=== PATIENT | male | born 1930 | race African-American/Black ===

== ENCOUNTER 2018-07-31 13:47 | Inpatient (IN) | payer MEDICARE ==
[~2018-07-31] VITALS: Ht 182.9 cm; Wt 108.9 kg
[2018-07-31] MEDS ORDERED: MORPHINE SULFATE 2 MG/ML VIAL. IV/SQ PRN (14:30)
--- NOTE | 2018-07-31 14:58 | EKG ---
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
[2018-07-31 15:19] LABS: BASO # 0.1 x10^3/uL (0.0-0.2); BASO % 1 % (0-3); BILIRUBIN,URINE NEGATIVE (NEG); CLARITY,URINE CLEAR; COLOR,URINE YELLOW; EOS # 0.2 x10^3/uL (0.0-0.7); EOS % 5 % (0-3); HEMATOCRIT 37.7 % (39.0-53.0); HEMOGLOBIN 12.9 g/dL (13.0-17.5); LYMPH # 1.2 x10^3/uL (1.0-4.8); LYMPH % 27 % (24-48); MEAN CORPUSCULAR HEMOGLOBIN 33 pg (25-35); MEAN CORPUSCULAR HGB CONC 34 g/dL (31-37); MEAN CORPUSCULAR VOLUME 97 fL (79-100); MONO # 0.4 x10^3/uL (0.0-1.1); MONO % 8 % (0-9); NEUT # 2.6 x10^3uL (1.8-7.7); NEUT % 59 % (31-73); NITRITE,URINE NEGATIVE (NEG); PH,URINE 6.5; PLATELET COUNT 218 x10^3/uL (140-400); PROTEIN,URINE NEGATIVE (NEG-TRACE); RED CELL DISTRIBUTION WIDTH 13.9 % (11.5-14.5); WHITE BLOOD COUNT 4.5 x10^3/uL (4.0-11.0)
[2018-07-31 15:26] LABS: BARBITURATES NEG (NEG); BENZODIAZEPINES NEG (NEG); CANNABINOIDS NEG (NEG); COCAINE NEG (NEG); METHADONE NEG (NEG); OPIATES NEG (NEG); PHENCYCLIDINE NEG (NEG)
[2018-07-31 15:29] LABS: AMPHETAMINE/METHAMPHETAMINE NEG (NEG); PROTHROMBIN TIME PATIENT 13.9 SEC (11.7-14.0)
[2018-07-31 15:44] LABS: BACTERIA,URINE FEW /HPF (0-FEW); HYALINE CASTS, URINE FEW /HPF; RBC,URINE OCC /HPF (0-2); SQUAMOUS EPITHELIAL CELL,UR FEW /LPF
[2018-07-31 16:12] LABS: ANION GAP 15 (6-14); BLOOD UREA NITROGEN 18 mg/dL (8-26); BUN/CREATININE RATIO 11 (6-20); CALCIUM 9.6 mg/dL (8.5-10.1); CARBON DIOXIDE 23 mmol/L (21-32); CHLORIDE 90 mmol/L (98-107); CREATININE 1.7 mg/dL (0.7-1.3); GFR 46.5; GLUCOSE 111 mg/dL (70-99); POTASSIUM 3.8 mmol/L (3.5-5.1); SODIUM 128 mmol/L (136-145)
[2018-07-31] MEDS ORDERED: CONTRAST GIVEN. MC PRN (16:30)
[2018-07-31] MEDS ORDERED: IOHEXOL 300 MG/ML 100ML VIAL. IV ONE (16:30)
[2018-07-31 16:38] LABS: ALBUMIN 4.1 g/dL (3.4-5.0); MAGNESIUM 2.2 mg/dL (1.8-2.4)
[2018-07-31 16:42] LABS: ALBUMIN/GLOBULIN RATIO 1.1 (1.0-1.7); ALK PHOS 63 U/L (46-116); ALT (SGPT) 26 U/L (16-63); AST (SGOT) 84 U/L (15-37); LIPASE < 10 U/L (73-393); TOTAL BILIRUBIN 0.7 mg/dL (0.2-1.0); TOTAL PROTEIN 7.7 g/dL (6.4-8.2)
[2018-07-31] MEDS ORDERED: IV NORMAL SALINE 1000ML BAG 1,000 ML IV ONE ×4 (17:00→18:00)
--- NOTE | 2018-07-31 17:11 | RAD ---
CT scan abdomen and pelvis with contrast 07/31/2018 CLINICAL HISTORY: Abdominal pain and distention. TECHNIQUE: After the intravenous administration of 60 cc of Omnipaque 300 only, contiguous, 5 mm axial sections were obtained through abdomen and pelvis. One or more of the following individualized dose reduction techniques were utilized for this study: 1. Automated exposure control. 2. Adjustment of the mA and/or kV according to patient size. 3. Use of iterative reconstruction technique. FINDINGS: No previous imaging studies are available for comparison. Images through the lung bases demonstrate minimal dependent subsegmental atelectasis involving both lower lobes. The liver, spleen, pancreas, and adrenal glands are within normal limits. Rounded low-attenuation lesions are seen involving both kidneys. These measure 5 mm to 4 cm in size. They likely represent cysts. Atherosclerotic calcification of the abdominal aorta and its branches is noted. The abdominal aorta is ectatic but tapers normally. Multiple calcified gallstones are seen within the dependent portions of the gallbladder. The gallbladder is contracted. Air and stool distention of the colon is seen particularly involving the sigmoid colon without definite evidence of bowel obstruction. The rectum has a diffusely thickened wall. It is mild to moderately distended with stool. The rectosigmoid junction is normal in caliber. The sigmoid colon proximal to this is markedly distended and filled with stool and air. No mass lesion is seen; however, an underlying stricture in this region is not excluded. Clinical correlation is recommended. No free fluid or free air is seen within the abdomen. Images through the pelvis demonstrate the urinary bladder distended with urine. The prostate gland is enlarged likely related to BPH. No free fluid is seen. Very mild S-shaped curvature of the thoracolumbar spine is seen. Degenerative changes are seen involving the lower thoracic and throughout the lumbar disc spaces along with both SI joints. Moderate to severe degenerative changes are seen involving both hips, right greater than left. IMPRESSION: Marked air and stool distention of the sigmoid colon is seen without definite evidence of bowel obstruction as discussed above. Electronically signed by: Demetris Tay MD (07/31/2018 5:08 PM) [facility]
--- NOTE | 2018-07-31 17:29 | PHYS DOC ---
Past Medical History Past Medical History: Hypertension, Other Additional Past Medical Histor: GOUT,BOWEL OBSTRUCTION (ROSINA DIEHL APRN) Past Surgical History: Angioplasty, Other Additional Past Surgical Histo: BOWEL SURG (ROSINA DIEHL APRN) Alcohol Use: Heavy Additional Information: DRINKS 1/2 [place] WITH BEER DAILY, LAST DRINK 2 DAYS AGO. Drug Use: None (ROSINA DIEHL APRN) Adult General Chief Complaint Chief Complaint: ABDOMINAL PAIN HPI HPI Patient is a 88 year old male with history of hypertension, very poor historian who presents to the ED today complaining of generalized pressure like 5 out of 10 abdominal pain that has been going on for 2- 3 months. Patient is also complaining of nausea. Denies any vomiting. He states his stools are sometimes loose with the last BM movement two or three days ago. He states he has tried gas X and small amount of gas comes out. Patient is also complaining of urinary incontinence for 2-3 months. Denies any trauma. Denies any back pain. Denies any fever. PCP-[facility] (ROSINA DIEHL APRN) Review of Systems Review of Systems Constitutional: Denies fever or chills [] Eyes: Denies change in visual acuity, redness, or eye pain [] HENT: Denies nasal congestion or sore throat [] Respiratory: Denies cough or shortness of breath [] Cardiovascular: No additional information not addressed in HPI [] GI: Reports abdominal pain and nausea, denies vomiting, bloody stools or diarrhea [] : Denies dysuria or hematuria [] Musculoskeletal: Denies back pain or joint pain [] Integument: Denies rash or skin lesions [] Neurologic: Denies headache, focal weakness or sensory changes [] All other systems were reviewed and found to be within normal limits, except as documented in this note. (ROSINA DIEHL APRN) Current Medications Current Medications Current Medications Medications (Trade) Dose Ordered Sig/Steve Start Time Stop Time Status Last Admin Dose Admin Acetaminophen (Tylenol) 650 mg PRN Q4HRS PRN 07/31/18 18:00 08/01/18 17:59 Info (CONTRAST GIVEN -- Rx MONITORING) 1 each PRN DAILY PRN 07/31/18 16:30 08/02/18 16:29 Iohexol (Omnipaque 300 Mg/ml) 60 ml 1X ONCE 07/31/18 16:30 07/31/18 16:31 DC 07/31/18 16:37 60 ML Morphine Sulfate (Morphine Sulfate) 2 mg PRN Q2HR PRN 07/31/18 18:00 08/01/18 17:59 Ondansetron HCl (Zofran) 4 mg PRN Q8HRS PRN 07/31/18 18:00 08/01/18 17:59 Sodium Chloride 1,000 ml @ 125 mls/hr 1X ONCE 07/31/18 18:00 08/01/18 01:59 (DORENE WESTBROOK MD) Allergies Allergies Allergies Coded Allergies Type Severity Reaction Last Updated Verified No Known Drug Allergies 07/31/18 No (DORENE WESTBROOK MD) Physical Exam Physical Exam Constitutional: Well developed, well nourished, no acute distress, non-toxic appearance. [] HENT: Normocephalic, atraumatic, bilateral external ears normal, oropharynx moist, no oral exudates, nose normal. [] Eyes: PERRLA, EOMI, conjunctiva normal, no discharge. [] Neck: Normal range of motion, no tenderness, supple, no stridor. [] Cardiovascular:Heart rate regular rhythm, no murmur [] Lungs & Thorax: Bilateral breath sounds clear to auscultation [] Abdomen: Distended rounded abdomen. Bowel sounds are present. Bowel sounds norm al, soft, diffuse tenderness throughout the abdomen, no point tenderness to the right upper quadrant or right lower quadrant no masses, no pulsatile masses. [] Skin: Warm, very dry scaly skin, no rashes Back: No tenderness, no CVA tenderness. [] Extremities: No tenderness, no cyanosis, no clubbing, ROM intact, no edema. [] Neurologic: Alert and oriented X 3, normal motor function, normal sensory function, no focal deficits noted. [] Psychologic: Affect normal, judgement normal, mood normal. [] (ROSINA DIEHL APRN) Current Patient Data Vital Signs Vital Signs Date Time Temp Pulse Resp B/P (MAP) Pulse Ox O2 Delivery O2 Flow Rate FiO2 07/31/18 14:04 98.2 71 20 153/70 (97) 96 Room Air 98.2 (DORENE WESTBROOK MD) Lab Values Laboratory Tests Test 07/31/18 15:05 07/31/18 15:50 White Blood Count 4.5 x10^3/uL (4.0-11.0) Red Blood Count 3.90 x10^6/uL (4.30-5.70) L Hemoglobin 12.9 g/dL (13.0-17.5) L Hematocrit 37.7 % (39.0-53.0) L Mean Corpuscular Volume 97 fL (79-100) Mean Corpuscular Hemoglobin 33 pg (25-35) Mean Corpuscular Hemoglobin Concent 34 g/dL (31-37) Red Cell Distribution Width 13.9 % (11.5-14.5) Platelet Count 218 x10^3/uL (140-400) Neutrophils (%) (Auto) 59 % (31-73) Lymphocytes (%) (Auto) 27 % (24-48) Monocytes (%) (Auto) 8 % (0-9) Eosinophils (%) (Auto) 5 % (0-3) H Basophils (%) (Auto) 1 % (0-3) Neutrophils # (Auto) 2.6 x10^3uL (1.8-7.7) Lymphocytes # (Auto) 1.2 x10^3/uL (1.0-4.8) Monocytes # (Auto) 0.4 x10^3/uL (0.0-1.1) Eosinophils # (Auto) 0.2 x10^3/uL (0.0-0.7) Basophils # (Auto) 0.1 x10^3/uL (0.0-0.2) Prothrombin Time 13.9 SEC (11.7-14.0) Prothrombin Time INR 1.1 (0.8-1.1) Urine Collection Type Void Urine Color Yellow Urine Clarity Clear Urine pH 6.5 Urine Specific [place] 1.010 Urine Protein Negative mg/dL (NEG-TRACE) Urine Glucose (UA) Negative mg/dL (NEG) Urine Ketones (Stick) Negative mg/dL (NEG) Urine Blood Negative (NEG) Urine Nitrite Negative (NEG) Urine Bilirubin Negative (NEG) Urine Urobilinogen Dipstick 1.0 mg/dL (0.2 mg/dL) Urine Leukocyte Esterase Negative (NEG) Urine RBC Occ /HPF (0-2) Urine WBC 1-4 /HPF (0-4) Urine Squamous Epithelial Cells Few /LPF Urine Bacteria Few /HPF (0-FEW) Urine Hyaline Casts Few /HPF Urine Mucus Slight /LPF Urine Opiates Screen Neg (NEG) Urine Methadone Screen Neg (NEG) Urine Barbiturates Neg (NEG) Urine Phencyclidine Screen Neg (NEG) Urine Amphetamine/Methamphetamine Neg (NEG) Urine Benzodiazepines Screen Neg (NEG) Urine Cocaine Screen Neg (NEG) Urine Cannabinoids Screen Neg (NEG) Urine Ethyl Alcohol Neg (NEG) Sodium Level 128 mmol/L (136-145) L Potassium Level 3.8 mmol/L (3.5-5.1) Chloride Level 90 mmol/L (98-107) L Carbon Dioxide Level 23 mmol/L (21-32) Anion Gap 15 (6-14) H Blood Urea Nitrogen 18 mg/dL (8-26) Creatinine 1.7 mg/dL (0.7-1.3) H Estimated GFR (Cockcroft-Gault) 46.5 BUN/Creatinine Ratio 11 (6-20) Glucose Level 111 mg/dL (70-99) H Calcium Level 9.6 mg/dL (8.5-10.1) Magnesium Level 2.2 mg/dL (1.8-2.4) Total Bilirubin 0.7 mg/dL (0.2-1.0) Aspartate Amino Transferase (AST) 84 U/L (15-37) H Alanine Aminotransferase (ALT) 26 U/L (16-63) Alkaline Phosphatase 63 U/L (46-116) Creatine Kinase 1717 U/L (39-308) H Creatine Kinase MB (Mass) 17.3 ng/mL (0.0-3.6) H Creatine Kinase MB Relative Index 1.0 % (0-4) Troponin I Quantitative 0.018 ng/mL (0.000-0.055) SS-Kiv-O-Type Natriuretic Peptide 319 pg/mL (0-449) Total Protein 7.7 g/dL (6.4-8.2) Albumin 4.1 g/dL (3.4-5.0) Albumin/Globulin Ratio 1.1 (1.0-1.7) Lipase < 10 U/L (73-393) L Ethyl Alcohol Level < 10 mg/dL (0-10) Laboratory Tests 07/31/18 15:05 Laboratory Tests 07/31/18 15:50 (DORENE WESTBROOK MD) EKG EKG 14:[address] Westbrook sinus rhythm heart rate 72 no STEMI[] (ROSINA DIEHL INTERNATIONAL OPERATIONS MANAGER) Radiology/Procedures Radiology/Procedures []PROCEDURE: CT ABD PELV W/ IV CONTRST ONLY CT scan abdomen and pelvis with contrast 07/31/2018 CLINICAL HISTORY: Abdominal pain and distention. TECHNIQUE: After the intravenous administration of 60 cc of Omnipaque 300 only, contiguous, 5 mm axial sections were obtained through abdomen and pelvis. One or more of the following individualized dose reduction techniques were utilized for this study: 1. Automated exposure control. 2. Adjustment of the mA and/or kV according to patient size. 3. Use of iterative reconstruction technique. FINDINGS: No previous imaging studies are available for comparison. Images through the lung bases demonstrate minimal dependent subsegmental atelectasis involving both lower lobes. The liver, spleen, pancreas, and adrenal glands are within normal limits. Rounded low-attenuation lesions are seen involving both kidneys. These measure 5 mm to 4 cm in size. They likely represent cysts. Atherosclerotic calcification of the abdominal aorta and its branches is noted. The abdominal aorta is ectatic but tapers normally. Multiple calcified gallstones are seen within the dependent portions of the gallbladder. The gallbladder is contracted. Air and stool distention of the colon is seen particularly involving the sigmoid colon without definite evidence of bowel obstruction. The rectum has a diffusely thickened wall. It is mild to moderately distended with stool. The rectosigmoid junction is normal in caliber. The sigmoid colon proximal to this is markedly distended and filled with stool and air. No mass lesion is seen; however, an underlying stricture in this region is not excluded. Clinical correlation is recommended. No free fluid or free air is seen within the abdomen. Images through the pelvis demonstrate the urinary bladder distended with urine. The prostate gland is enlarged likely related to BPH. No free fluid is seen. Very mild S-shaped curvature of the thoracolumbar spine is seen. Degenerative changes are seen involving the lower thoracic and throughout the lumbar disc spaces along with both SI joints. Moderate to severe degenerative changes are seen involving both hips, right greater than left. IMPRESSION: Marked air and stool distention of the sigmoid colon is seen without definite evidence of bowel obstruction as discussed above. Electronically signed by: Demetris Tay MD (07/31/2018 5:08 PM) [facility] DICTATED and SIGNED BY: DEMETRIS TAY MD DATE: 07/31/18 3713 (ROSINA DIEHL APRN) Course & Med Decision Making Course & Med Decision Making Pertinent Labs and Imaging studies reviewed. (See chart for details) This is a 88-year-old male patient presented to the ED today complaining of abdominal pain for 2-3 months. On arrival to the ED abdomen is distended with diffuse tenderness. Vitals are stable, his afebrile. CT of the abdomen and pelvic was noted for -Marked air and stool distention of the sigmoid colon is seen without definite evidence of bowel obstruction CBC with a normal WBC, CMP with sodium of 128, creatinine 1.7, glucose 111, anion gap 15, AST 84, CK 1717, troponin is normal. IV fluids were started wide open, on second liter. Consulted with Dr. Garcia who accepted patient for admission. (ROSINA DIEHL APRN) Course & Med Decision Making Patient was seen by OSMIN, I did not evaluate the patient unless otherwise specified in the chart. (DORENE WESTBROOK MD) Dragon Disclaimer Dragon Disclaimer This electronic medical record was generated, in whole or in part, using a voice recognition dictation system. (ROSINA DIEHL APRN) Departure Departure Impression: Primary Impression: Rhabdomyolysis Additional Impressions: Hyponatremia Constipation Chronic abdominal pain Disposition: ADMITTED INPATIENT Condition: STABLE Referrals: UNKNOWN PCP NAME (PCP) Problem Qualifiers Primary Impression: Rhabdomyolysis Rhabdomyolysis type: non-traumatic Qualified Codes: M62.82 - Rhabdomyolysis Additional Impressions: Constipation Constipation type: unspecified constipation type Qualified Codes: K59.00 - Constipation, unspecified ROSINA DIEHL APRN July 31, 2018 17:29 DORENE WESTBROOK MD July 31, 2018 18:10
[2018-07-31] MEDS ORDERED: MORPHINE SULFATE 2 MG/ML VIAL. IV PRN (18:00)
[2018-07-31] MEDS ORDERED: ACETAMINOPHEN 325 MG TABLET. PO PRN (18:00)
[2018-07-31] MEDS ORDERED: ONDANSETRON PF 4 MG/2 ML VIAL. IV PRN (18:00)
--- NOTE | 2018-07-31 19:35 | NUR ---
ADMISSION NOTE: Patient arrived to room 663 via [facility] accompanied by ED staff. Patient able to scoot self onto bed from [facility]. All belongings accounted for. Bed low, locked, call light within reach. Tele monitor applied, having trouble getting clear picture. Will apply skin prep to see if that helps. Will continue to monitor.
[2018-07-31 20:05] VITALS: BP 123/86
--- NOTE | 2018-07-31 20:43 | PDOC1 ---
History and Physical Date of Admission Date of Admission DATE: 07/31/18 TIME: 20:35 Identification/Chief Complaint Chief Complaint abd distention Source Source: Chart review, Patient History of Present Illness History of Present Illness Mr. Dietrich is a 88 year old male came to the ER with marked abdominal pain, and feels he hasnt' stooled and his abd has enlarged He has some confusion that appears chronic from his appearance, compalint of generalized pressure like 5 out of 10 abdominal pain for more than a month. nasuea, poor po intake, no vomiting He states he has tried gas X and small amount of gas comes ou Past Medical History Cardiovascular: HTN Pulmonary: No pertinent hx Past Surgical History Past Surgical History: No pertinent history Family History Family History: No Significant Social History Smoke: <1 pack per day ALCOHOL: rare Drugs: None Current Problem List Problem List Problems Medical Problems: (1) Chronic abdominal pain Status: Acute (2) Constipation Status: Acute (3) Hyponatremia Status: Acute (4) Rhabdomyolysis Status: Acute Current Medications Current Medications Current Medications Morphine Sulfate (Morphine Sulfate) 2 mg PRN Q15MIN PRN IV/SQ PAIN GREATER THAN 3/10; Start 07/31/18 at 14:30; Stop 08/01/18 at 14:29 Iohexol (Omnipaque 300 Mg/ml) 60 ml 1X ONCE IV Last administered on 07/31/18at 16:37; Start 07/31/18 at 16:30; Stop 07/31/18 at 16:31; Status DC Info (CONTRAST GIVEN -- Rx MONITORING) 1 each PRN DAILY PRN MC SEE COMMENTS; Start 07/31/18 at 16:30; Stop 08/02/18 at 16:29 Sodium Chloride 1,000 ml @ 1,000 mls/hr 1X ONCE IV Last administered on 07/31/18at 17:04; Start 07/31/18 at 17:00; Stop 07/31/18 at 17:59; Status DC Sodium Chloride 1,000 ml @ 1,000 mls/hr 1X ONCE IV Last administered on 07/31/18at 17:58; Start 07/31/18 at 18:00; Stop 07/31/18 at 18:59; Status DC Sodium Chloride 1,000 ml @ 1,000 mls/hr 1X ONCE IV Last administered on 07/31/18at 17:58; Start 07/31/18 at 18:00; Stop 07/31/18 at 18:59; Status DC Ondansetron HCl (Zofran) 4 mg PRN Q8HRS PRN IV NAUSEA/VOMITING; Start 07/31/18 at 18:00; Stop 08/01/18 at 17:59 Morphine Sulfate (Morphine Sulfate) 2 mg PRN Q2HR PRN IV PAIN; Start 07/31/18 at 18:00; Stop 08/01/18 at 17:59 Acetaminophen (Tylenol) 650 mg PRN Q4HRS PRN PO FEVER; Start 07/31/18 at 18:00; Stop 08/01/18 at 17:59 Sodium Chloride 1,000 ml @ 125 mls/hr 1X ONCE IV ; Start 07/31/18 at 18:00; Stop 08/01/18 at 01:59 Allergies Allergies: Coded Allergies: No Known Drug Allergies (Unverified , 07/31/18) ROS General: YES: Fatigue; No: Chills, Night Sweats, Malaise, Appetite, Other PSYCHOLOGICAL ROS: No: Anxiety, Behavioral Disorder, Concentration difficultie, Decreased libido, Depression, Disorientation, Hallucinations, Hostility, Irritablity, Memory difficulties, Mood Swings, Obsessive thoughts, Physical a buse, Sexual abuse, Sleep disturbances, Suicidal ideation, Other Eyes: No Blurry vision, No Decreased vision, No Double vision, No Dry eyes, No Excessive tearing, No Eye Pain, No Itchy Eyes, No Loss of vision, No Photophobia, No Scotomata, No Uses contacts, No Uses glasses, No Other HEENT: No: Heacaches, Visual Changes, Hearing change, Nasal congestion, Nasal discharge, Oral lesions, Sinus pain, Sore Throat, Epistaxis, Sneezing, Snoring, Tinnitus, Vertigo, Vocal changes, Other Respiratory: No: Cough, Hemoptysis, Orthopnea, Pleuritic Pain, Shortness of breath, SOB with excertion, Sputum Changes, Stridor, Tachypnea, Wheezing, Other Cardiovascular: No Chest Pain, No Palpitations, No Orthopnea, No Paroxysmal Noc. Dyspnea, No Edema, No Lt Headedness, No Other Gastrointestinal: Yes Nausea, Yes Abdominal Pain, Yes Constipation; No Vomiting, No Diarrhea, No Melena, No Hematochezia, No Other Genitourinary: No Dysuria, No Frequency, No Incontinence, No Hematuria, No Retention, No Discharge, No Urgency, No Pain, No Flank Pain, No Other, No , No , No , No , No , No , No Musculoskeletal: Yes Joint Pain, Yes Joint Stiffness Neurological: Yes Memory Loss, Yes Weakness, Yes Other Skin: Yes Dry Skin; No Eczema, No Hair Changes, No Lumps, No Mole Changes, No Mottling, No Nail Changes, No Pruritus, No Rash, No Skin Lesion Changes, No Other, No Acne Physical Exam Physical Exam malordorous General: Alert, Cooperative, mild distress, Other (mod oriened /) HEENT: PERRLA, Other (op dry) Lungs: Clear to auscultation Abdomen: Normal bowel sounds, Soft (very distended, some tympany, round and full) Rectal Exam: not examined Extremities: No cyanosis, No edema, Normal pulses Skin: No rashes, No significant lesion Neuro: Normal speech, Normal tone Psych/Mental Status: Mood NL, Other (flat affect, ) Vitals Vitals Vital Signs Date Time Temp Pulse Resp B/P (MAP) Pulse Ox O2 Delivery O2 Flow Rate FiO2 07/31/18 18:30 66 18 150/78 (102) 96 Room Air 07/31/18 14:04 98.2 98.2 Labs Labs Laboratory Tests Test 07/31/18 15:05 07/31/18 15:50 White Blood Count 4.5 x10^3/uL (4.0-11.0) Red Blood Count 3.90 x10^6/uL (4.30-5.70) Hemoglobin 12.9 g/dL (13.0-17.5) Hematocrit 37.7 % (39.0-53.0) Mean Corpuscular Volume 97 fL (79-100) Mean Corpuscular Hemoglobin 33 pg (25-35) Mean Corpuscular Hemoglobin Concent 34 g/dL (31-37) Red Cell Distribution Width 13.9 % (11.5-14.5) Platelet Count 218 x10^3/uL (140-400) Neutrophils (%) (Auto) 59 % (31-73) Lymphocytes (%) (Auto) 27 % (24-48) Monocytes (%) (Auto) 8 % (0-9) Eosinophils (%) (Auto) 5 % (0-3) Basophils (%) (Auto) 1 % (0-3) Neutrophils # (Auto) 2.6 x10^3uL (1.8-7.7) Lymphocytes # (Auto) 1.2 x10^3/uL (1.0-4.8) Monocytes # (Auto) 0.4 x10^3/uL (0.0-1.1) Eosinophils # (Auto) 0.2 x10^3/uL (0.0-0.7) Basophils # (Auto) 0.1 x10^3/uL (0.0-0.2) Prothrombin Time 13.9 SEC (11.7-14.0) Prothromb Time International Ratio 1.1 (0.8-1.1) Urine Collection Type Void Urine Color Yellow Urine Clarity Clear Urine pH 6.5 Urine Specific [place] 1.010 Urine Protein Negative mg/dL (NEG-TRACE) Urine Glucose (UA) Negative mg/dL (NEG) Urine Ketones (Stick) Negative mg/dL (NEG) Urine Blood Negative (NEG) Urine Nitrite Negative (NEG) Urine Bilirubin Negative (NEG) Urine Urobilinogen Dipstick 1.0 mg/dL (0.2 mg/dL) Urine Leukocyte Esterase Negative (NEG) Urine RBC Occ /HPF (0-2) Urine WBC 1-4 /HPF (0-4) Urine Squamous Epithelial Cells Few /LPF Urine Bacteria Few /HPF (0-FEW) Urine Hyaline Casts Few /HPF Urine Mucus Slight /LPF Urine Opiates Screen Neg (NEG) Urine Methadone Screen Neg (NEG) Urine Barbiturates Neg (NEG) Urine Phencyclidine Screen Neg (NEG) Urine Amphetamine/Methamphetamine Neg (NEG) Urine Benzodiazepines Screen Neg (NEG) Urine Cocaine Screen Neg (NEG) Urine Cannabinoids Screen Neg (NEG) Urine Ethyl Alcohol Neg (NEG) Sodium Level 128 mmol/L (136-145) Potassium Level 3.8 mmol/L (3.5-5.1) Chloride Level 90 mmol/L (98-107) Carbon Dioxide Level 23 mmol/L (21-32) Anion Gap 15 (6-14) Blood Urea Nitrogen 18 mg/dL (8-26) Creatinine 1.7 mg/dL (0.7-1.3) Estimated GFR (Cockcroft-Gault) 46.5 BUN/Creatinine Ratio 11 (6-20) Glucose Level 111 mg/dL (70-99) Calcium Level 9.6 mg/dL (8.5-10.1) Magnesium Level 2.2 mg/dL (1.8-2.4) Total Bilirubin 0.7 mg/dL (0.2-1.0) Aspartate Amino Transf (AST/SGOT) 84 U/L (15-37) Alanine Aminotransferase (ALT/SGPT) 26 U/L (16-63) Alkaline Phosphatase 63 U/L (46-116) Creatine Kinase 1717 U/L (39-308) Creatine Kinase MB (Mass) 17.3 ng/mL (0.0-3.6) Creatine Kinase MB Relative Index 1.0 % (0-4) Troponin I Quantitative 0.018 ng/mL (0.000-0.055) UO-Hmb-Y-Type Natriuretic Peptide 319 pg/mL (0-449) Total Protein 7.7 g/dL (6.4-8.2) Albumin 4.1 g/dL (3.4-5.0) Albumin/Globulin Ratio 1.1 (1.0-1.7) Lipase < 10 U/L (73-393) Ethyl Alcohol Level < 10 mg/dL (0-10) Laboratory Tests Test 07/31/18 15:05 07/31/18 15:50 White Blood Count 4.5 x10^3/uL (4.0-11.0) Red Blood Count 3.90 x10^6/uL (4.30-5.70) Hemoglobin 12.9 g/dL (13.0-17.5) Hematocrit 37.7 % (39.0-53.0) Mean Corpuscular Volume 97 fL (79-100) Mean Corpuscular Hemoglobin 33 pg (25-35) Mean Corpuscular Hemoglobin Concent 34 g/dL (31-37) Red Cell Distribution Width 13.9 % (11.5-14.5) Platelet Count 218 x10^3/uL (140-400) Neutrophils (%) (Auto) 59 % (31-73) Lymphocytes (%) (Auto) 27 % (24-48) Monocytes (%) (Auto) 8 % (0-9) Eosinophils (%) (Auto) 5 % (0-3) Basophils (%) (Auto) 1 % (0-3) Neutrophils # (Auto) 2.6 x10^3uL (1.8-7.7) Lymphocytes # (Auto) 1.2 x10^3/uL (1.0-4.8) Monocytes # (Auto) 0.4 x10^3/uL (0.0-1.1) Eosinophils # (Auto) 0.2 x10^3/uL (0.0-0.7) Basophils # (Auto) 0.1 x10^3/uL (0.0-0.2) Prothrombin Time 13.9 SEC (11.7-14.0) Prothromb Time International Ratio 1.1 (0.8-1.1) Urine Collection Type Void Urine Color Yellow Urine Clarity Clear Urine pH 6.5 Urine Specific [place] 1.010 Urine Protein Negative mg/dL (NEG-TRACE) Urine Glucose (UA) Negative mg/dL (NEG) Urine Ketones (Stick) Negative mg/dL (NEG) Urine Blood Negative (NEG) Urine Nitrite Negative (NEG) Urine Bilirubin Negative (NEG) Urine Urobilinogen Dipstick 1.0 mg/dL (0.2 mg/dL) Urine Leukocyte Esterase Negative (NEG) Urine RBC Occ /HPF (0-2) Urine WBC 1-4 /HPF (0-4) Urine Squamous Epithelial Cells Few /LPF Urine Bacteria Few /HPF (0-FEW) Urine Hyaline Casts Few /HPF Urine Mucus Slight /LPF Urine Opiates Screen Neg (NEG) Urine Methadone Screen Neg (NEG) Urine Barbiturates Neg (NEG) Urine Phencyclidine Screen Neg (NEG) Urine Amphetamine/Methamphetamine Neg (NEG) Urine Benzodiazepines Screen Neg (NEG) Urine Cocaine Screen Neg (NEG) Urine Cannabinoids Screen Neg (NEG) Urine Ethyl Alcohol Neg (NEG) Sodium Level 128 mmol/L (136-145) Potassium Level 3.8 mmol/L (3.5-5.1) Chloride Level 90 mmol/L (98-107) Carbon Dioxide Level 23 mmol/L (21-32) Anion Gap 15 (6-14) Blood Urea Nitrogen 18 mg/dL (8-26) Creatinine 1.7 mg/dL (0.7-1.3) Estimated GFR (Cockcroft-Gault) 46.5 BUN/Creatinine Ratio 11 (6-20) Glucose Level 111 mg/dL (70-99) Calcium Level 9.6 mg/dL (8.5-10.1) Magnesium Level 2.2 mg/dL (1.8-2.4) Total Bilirubin 0.7 mg/dL (0.2-1.0) Aspartate Amino Transf (AST/SGOT) 84 U/L (15-37) Alanine Aminotransferase (ALT/SGPT) 26 U/L (16-63) Alkaline Phosphatase 63 U/L (46-116) Creatine Kinase 1717 U/L (39-308) Creatine Kinase MB (Mass) 17.3 ng/mL (0.0-3.6) Creatine Kinase MB Relative Index 1.0 % (0-4) Troponin I Quantitative 0.018 ng/mL (0.000-0.055) FJ-Xoh-S-Type Natriuretic Peptide 319 pg/mL (0-449) Total Protein 7.7 g/dL (6.4-8.2) Albumin 4.1 g/dL (3.4-5.0) Albumin/Globulin Ratio 1.1 (1.0-1.7) Lipase < 10 U/L (73-393) Ethyl Alcohol Level < 10 mg/dL (0-10) VTE Prophylaxis Ordered VTE Prophylaxis Devices: No VTE Pharmacological Prophylaxi: Yes Assessment/Plan Assessment/Plan acute on chronic abd pain with obstipation, will order regimen, softeners, enema, GI consulted rhabdomyolysis, CK 1700, iv fluid hypovolemic hyponatremia, IV fluid cognitive decline, needs a shower obesity, BMI 32 CHARITY BYERS MD July 31, 2018 20:43
[2018-07-31] MEDS ORDERED: SODIUM PHOSPHATES 19/7GM 133 ML ENEMA. PR ONE (20:45)
[2018-07-31] MEDS ORDERED: DOCUSATE SODIUM 100 MG CAPSULE. PO PRN (20:45)
--- NOTE | 2018-07-31 21:15 | NUR ---
Patient wants to try Miralax before enema. Explained risk vs. benefit - patient continues to refuse. Will leave unadministered on eMAR to be administered at a later time.
[2018-07-31] MEDS: POLYETHYLENE GLYCOL 3350 17 GM PACKET. PO SCH (21:51)
[2018-07-31 23:40] VITALS: BP 129/83
[2018-08-01 03:40] VITALS: BP 124/82
[2018-08-01] MEDS: IV NORMAL SALINE 1000ML BAG 1,000 ML IV SCH ×3 (05:07→16:50)
[2018-08-01 05:25] LABS: BASO % 1 % (0-3); EOS # 0.2 x10^3/uL (0.0-0.7); EOS % 5 % (0-3); HEMATOCRIT 37.3 % (39.0-53.0); HEMOGLOBIN 12.6 g/dL (13.0-17.5); LYMPH # 1.3 x10^3/uL (1.0-4.8); LYMPH % 30 % (24-48); MEAN CORPUSCULAR HEMOGLOBIN 33 pg (25-35); MEAN CORPUSCULAR HGB CONC 34 g/dL (31-37); MEAN CORPUSCULAR VOLUME 97 fL (79-100); MONO # 0.3 x10^3/uL (0.0-1.1); MONO % 7 % (0-9); NEUT # 2.6 x10^3uL (1.8-7.7); NEUT % 57 % (31-73); PLATELET COUNT 221 x10^3/uL (140-400); RED BLOOD COUNT 3.84 x10^6/uL (4.30-5.70); WHITE BLOOD COUNT 4.5 x10^3/uL (4.0-11.0)
[2018-08-01 05:39] LABS: CALCIUM 8.8 mg/dL (8.5-10.1); CREATININE 1.5 mg/dL (0.7-1.3); GFR 53.7; POTASSIUM 3.9 mmol/L (3.5-5.1)
[2018-08-01 07:00] VITALS: BP 135/92
--- NOTE | 2018-08-01 07:26 | EKG ---
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
--- NOTE | 2018-08-01 07:31 | EKG ---
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
[2018-08-01] MEDS: POLYETHYLENE GLYCOL 3350 17 GM PACKET. PO SCH ×2 (08:40→21:30)
[2018-08-01] MEDS: DOCUSATE SODIUM 100 MG CAPSULE. PO SCH (08:40)
--- NOTE | 2018-08-01 09:20 | PDOC2 ---
GI CONSULT Reason For Consult: Constipation HPI: HPI: 88 y/o male admitted through ER, not a good historian. Reports abd pain and distention x 2 months - "my stomach is too full and I kept eating but it didn't come out." Tells me has constipation but also stools are "too loose" and has been taking Gas-X "and everything else." Unclear if bowel pattern changed recently or what his normal is. Feels better w/ flatus. I asked when his last stool was - "yesterday, just a little, but gas." He does mention he was at the [facility] and "they untwisted me" - initially he says he has never had a colonoscopy but then seems to recall the prep and "a camera" (but also mentions a camera "went up my leg"). Has Miralax and Fleet enema ordered - RN says he refused enema last night but he says he's going to take it now. Denies reflux/heartburn, dysphagia, vomiting, bleeding, and weight loss. Denies previous EGD, also denies GB, liver, pancreas, and PUD history. Denies NSAID use. On CT: atherosclerotic calcification of the abdominal aorta and its branches, gallstones, air and stool distention of the colon is seen particularly involving the sigmoid colon without definite evidence of bowel obstruction, rectum has a d iffusely thickened wall and is mild to moderately distended with stool, the sigmoid colon proximal to rectosigmoid junction is markedly distended and filled with stool and air. PMH: PMH: HTN, gout FH: Family History: No pertinent hx Social History: Smoke: Quit ALCOHOL: other (varying history - seems used to drink fairly heavily but quit 1 month ago) ROS: GEN: Denies fevers, chills, sweats HEENT: Denies blurred vision, sore throat CV: Denies chest pain RESP: Denies shortness of air, cough GI: Per HPI : Denies hematuria, dysuria ENDO: +weight gain NEURO: +confusion MSK: Denies weakness, joint pain/swelling SKIN: Denies jaundice, pruritus Vitals: Vitals: Vital Signs Date Time Temp Pulse Resp B/P (MAP) Pulse Ox O2 Delivery O2 Flow Rate FiO2 08/01/18 07:00 97.5 74 18 135/92 (106) 94 Room Air 97.5 Labs: Labs: Laboratory Tests Test 07/31/18 15:05 07/31/18 15:50 08/01/18 04:50 White Blood Count 4.5 x10^3/uL (4.0-11.0) 4.5 x10^3/uL (4.0-11.0) Red Blood Count 3.90 x10^6/uL (4.30-5.70) 3.84 x10^6/uL (4.30-5.70) Hemoglobin 12.9 g/dL (13.0-17.5) 12.6 g/dL (13.0-17.5) Hematocrit 37.7 % (39.0-53.0) 37.3 % (39.0-53.0) Mean Corpuscular Volume 97 fL (79-100) 97 fL (79-100) Mean Corpuscular Hemoglobin 33 pg (25-35) 33 pg (25-35) Mean Corpuscular Hemoglobin Concent 34 g/dL (31-37) 34 g/dL (31-37) Red Cell Distribution Width 13.9 % (11.5-14.5) 14.0 % (11.5-14.5) Platelet Count 218 x10^3/uL (140-400) 221 x10^3/uL (140-400) Neutrophils (%) (Auto) 59 % (31-73) 57 % (31-73) Lymphocytes (%) (Auto) 27 % (24-48) 30 % (24-48) Monocytes (%) (Auto) 8 % (0-9) 7 % (0-9) Eosinophils (%) (Auto) 5 % (0-3) 5 % (0-3) Basophils (%) (Auto) 1 % (0-3) 1 % (0-3) Neutrophils # (Auto) 2.6 x10^3uL (1.8-7.7) 2.6 x10^3uL (1.8-7.7) Lymphocytes # (Auto) 1.2 x10^3/uL (1.0-4.8) 1.3 x10^3/uL (1.0-4.8) Monocytes # (Auto) 0.4 x10^3/uL (0.0-1.1) 0.3 x10^3/uL (0.0-1.1) Eosinophils # (Auto) 0.2 x10^3/uL (0.0-0.7) 0.2 x10^3/uL (0.0-0.7) Basophils # (Auto) 0.1 x10^3/uL (0.0-0.2) 0.0 x10^3/uL (0.0-0.2) Prothrombin Time 13.9 SEC (11.7-14.0) Prothromb Time International Ratio 1.1 (0.8-1.1) Urine Collection Type Void Urine Color Yellow Urine Clarity Clear Urine pH 6.5 Urine Specific [place] 1.010 Urine Protein Negative mg/dL (NEG-TRACE) Urine Glucose (UA) Negative mg/dL (NEG) Urine Ketones (Stick) Negative mg/dL (NEG) Urine Blood Negative (NEG) Urine Nitrite Negative (NEG) Urine Bilirubin Negative (NEG) Urine Urobilinogen Dipstick 1.0 mg/dL (0.2 mg/dL) Urine Leukocyte Esterase Negative (NEG) Urine RBC Occ /HPF (0-2) Urine WBC 1-4 /HPF (0-4) Urine Squamous Epithelial Cells Few /LPF Urine Bacteria Few /HPF (0-FEW) Urine Hyaline Casts Few /HPF Urine Mucus Slight /LPF Urine Opiates Screen Neg (NEG) Urine Methadone Screen Neg (NEG) Urine Barbiturates Neg (NEG) Urine Phencyclidine Screen Neg (NEG) Urine Amphetamine/Methamphetamine Neg (NEG) Urine Benzodiazepines Screen Neg (NEG) Urine Cocaine Screen Neg (NEG) Urine Cannabinoids Screen Neg (NEG) Urine Ethyl Alcohol Neg (NEG) Sodium Level 128 mmol/L (136-145) 132 mmol/L (136-145) Potassium Level 3.8 mmol/L (3.5-5.1) 3.9 mmol/L (3.5-5.1) Chloride Level 90 mmol/L (98-107) 97 mmol/L (98-107) Carbon Dioxide Level 23 mmol/L (21-32) 24 mmol/L (21-32) Anion Gap 15 (6-14) 11 (6-14) Blood Urea Nitrogen 18 mg/dL (8-26) 14 mg/dL (8-26) Creatinine 1.7 mg/dL (0.7-1.3) 1.5 mg/dL (0.7-1.3) Estimated GFR (Cockcroft-Gault) 46.5 53.7 BUN/Creatinine Ratio 11 (6-20) Glucose Level 111 mg/dL (70-99) 101 mg/dL (70-99) Calcium Level 9.6 mg/dL (8.5-10.1) 8.8 mg/dL (8.5-10.1) Magnesium Level 2.2 mg/dL (1.8-2.4) Total Bilirubin 0.7 mg/dL (0.2-1.0) Aspartate Amino Transf (AST/SGOT) 84 U/L (15-37) Alanine Aminotransferase (ALT/SGPT) 26 U/L (16-63) Alkaline Phosphatase 63 U/L (46-116) Creatine Kinase 1717 U/L (39-308) Creatine Kinase MB (Mass) 17.3 ng/mL (0.0-3.6) Creatine Kinase MB Relative Index 1.0 % (0-4) Troponin I Quantitative 0.018 ng/mL (0.000-0.055) OO-Ilg-X-Type Natriuretic Peptide 319 pg/mL (0-449) Total Protein 7.7 g/dL (6.4-8.2) Albumin 4.1 g/dL (3.4-5.0) Albumin/Globulin Ratio 1.1 (1.0-1.7) Lipase < 10 U/L (73-393) Ethyl Alcohol Level < 10 mg/dL (0-10) Allergies: Coded Allergies: No Known Drug Allergies (Unverified , 07/31/18) Medications: Current Medications Medications (Trade) Dose Ordered Sig/Steve Route PRN Reason Start Time Stop Time Status Last Admin Dose Admin Iohexol (Omnipaque 300 Mg/ml) 60 ml 1X ONCE IV 07/31/18 16:30 07/31/18 16:31 DC 07/31/18 16:37 Sodium Chloride 1,000 ml @ 1,000 mls/hr 1X ONCE IV 07/31/18 17:00 07/31/18 17:59 DC 07/31/18 17:04 Sodium Chloride 1,000 ml @ 1,000 mls/hr 1X ONCE IV 07/31/18 18:00 07/31/18 18:59 DC 07/31/18 17:58 Sodium Chloride 1,000 ml @ 1,000 mls/hr 1X ONCE IV 07/31/18 18:00 07/31/18 18:59 DC 07/31/18 17:58 Sodium Chloride 1,000 ml @ 125 mls/hr 1X ONCE IV 07/31/18 18:00 08/01/18 01:59 DC 07/31/18 20:38 Polyethylene Glycol (miraLAX PACKET) 17 gm BID PO 07/31/18 21:00 08/01/18 08:40 Docusate Sodium (Colace) 100 mg DAILY PO 08/01/18 09:00 08/01/18 08:40 Sodium Chloride 1,000 ml @ 100 mls/hr Q10H IV 07/31/18 20:45 08/01/18 05:07 Imaging: Imaging: CT A/P w/ IV contrast Images through the lung bases demonstrate minimal dependent subsegmental at electasis involving both lower lobes. The liver, spleen, pancreas, and adrenal glands are within normal limits. Rounded low-attenuation lesions are seen involving both kidneys. These measure 5 mm to 4 cm in size. They likely represent cysts. Atherosclerotic calcification of the abdominal aorta and its branches is noted. The abdominal aorta is ectatic but tapers normally. Multiple calcified gallstones are seen within the dependent portions of the gallbladder. The gallbladder is contracted. Air and stool distention of the colon is seen particularly involving the sigmoid colon without definite evidence of bowel obstruction. The rectum has a diffusely thickened wall. It is mild to moderately distended with stool. The rectosigmoid junction is normal in caliber. The sigmoid colon proximal to this is markedly distended and filled with stool and air. No mass lesion is seen; however, an underlying stricture in this region is not excluded. Clinical correlation is recommended. No free fluid or free air is seen within the abdomen. Images through the pelvis demonstrate the urinary bladder distended with urine. The prostate gland is enlarged likely related to BPH. No free fluid is seen. Very mild S-shaped curvature of the thoracolumbar spine is seen. Degenerative changes are seen involving the lower thoracic and throughout the lumbar disc spaces along with both SI joints. Moderate to severe degenerative changes are seen involving both hips, right greater than left. IMPRESSION: Marked air and stool distention of the sigmoid colon is seen without definite evidence of bowel obstruction as discussed above. PE: GEN: NAD - eating eggs and toast HEENT: Atraumatic, PERRL LUNGS: CTAB anteriorly HEART: RRR ABD: very round/distended, tight, not particularly tender, ?tympanitic EXTREMITY: No edema SKIN: dry NEURO/PSYCH: A & O 3 - somewhat difficult to understand A/P: A/P: Abd distention, irregular bowel habits Abnormal CT - air and stool distention particularly of sigmoid colon and rectum, thickened rectal wall Normocytic anemia, hyponatremia, TIM/?CKD, elevated CK CRC screen - ?recent colonoscopy @ [facility] ?h/o volvulus Cholelithiasis - on CT -- Plans for enema and Miralax, await response. Will request records from [place]. YOSELIN PRAKASH August 01, 2018 09:20
--- NOTE | 2018-08-01 10:33 | PDOC2 ---
CONSULT Date of Consult Date of Consult DATE: 08/01/18 TIME: 10:28 Reason for Consult Reason for Consult: Hyponatremia, Rhabdo Identification/Chief Complaint Chief Complaint "My belly is swollen " Source Source: Chart review, Patient History of Present Illness Reason for Visit: Pt is a a 88 year old AA male came to the ER with severe abdominal pain, generalized ,pressure like 5 out of 10 abdominal pain for more than a month. nasuea, poor po intake, no vomiting and feels he hasnt had a BM and his abd has enlarged He has some confusion that appears chronic from his appearance, Denies any CP sob No F/C. No Urinary complaints. Denies ever seeing nephrology, not aware of any Kidney issues Denies using NSAID's. He is a , goes to [facility] for his care Past Medical History Cardiovascular: HTN Pulmonary: No pertinent hx Past Surgical History Past Surgical History: No pertinent history Family History Family History: No Significant Social History Quit ALCOHOL: other (varying history - seems used to drink fairly heavily but quit 1 month ago) Current Problem List Problem List Problems Medical Problems: (1) Chronic abdominal pain Status: Acute (2) Constipation Status: Acute (3) Hyponatremia Status: Acute (4) Rhabdomyolysis Status: Acute Current Medications Current Medications Current Medications Morphine Sulfate (Morphine Sulfate) 2 mg PRN Q15MIN PRN IV/SQ PAIN GREATER THAN 3/10; Start 07/31/18 at 14:30; Stop 08/01/18 at 14:29 Iohexol (Omnipaque 300 Mg/ml) 60 ml 1X ONCE IV Last administered on 07/31/18at 16:37; Start 07/31/18 at 16:30; Stop 07/31/18 at 16:31; Status DC Info (CONTRAST GIVEN -- Rx MONITORING) 1 each PRN DAILY PRN MC SEE COMMENTS; Start 07/31/18 at 16:30; Stop 08/02/18 at 16:29 Sodium Chloride 1,000 ml @ 1,000 mls/hr 1X ONCE IV Last administered on 07/31/18at 17:04; Start 07/31/18 at 17:00; Stop 07/31/18 at 17:59; Status DC Sodium Chloride 1,000 ml @ 1,000 mls/hr 1X ONCE IV Last administered on 07/31/18at 17:58; Start 07/31/18 at 18:00; Stop 07/31/18 at 18:59; Status DC Sodium Chloride 1,000 ml @ 1,000 mls/hr 1X ONCE IV Last administered on 07/31/18at 17:58; Start 07/31/18 at 18:00; Stop 07/31/18 at 18:59; Status DC Ondansetron HCl (Zofran) 4 mg PRN Q8HRS PRN IV NAUSEA/VOMITING; Start 07/31/18 at 18:00; Stop 08/01/18 at 17:59 Morphine Sulfate (Morphine Sulfate) 2 mg PRN Q2HR PRN IV PAIN; Start 07/31/18 at 18:00; Stop 08/01/18 at 17:59 Acetaminophen (Tylenol) 650 mg PRN Q4HRS PRN PO FEVER; Start 07/31/18 at 18:00; Stop 08/01/18 at 17:59 Sodium Chloride 1,000 ml @ 125 mls/hr 1X ONCE IV Last administered on 07/31/18at 20:38; Start 07/31/18 at 18:00; Stop 08/01/18 at 01:59; Status DC Polyethylene Glycol (miraLAX PACKET) 17 gm BID PO Last administered on 08/01/18at 08:40; Start 07/31/18 at 21:00 Docusate Sodium (Colace) 100 mg DAILY PO Last administered on 08/01/18at 08:40; Start 08/01/18 at 09:00 Docusate Sodium (Colace) 100 mg PRN DAILY PRN PO CONSTIPATION; Start 07/31/18 at 20:45 Sodium Monofluorophosphate (Fleet Adult) [address] ; Start 07/31/18 at 20:45; Stop 07/31/18 at 20:46; Status DC Sodium Chloride 1,000 ml @ 100 mls/hr Q10H IV Last administered on 08/01/18at 05:07; Start 07/31/18 at 20:45 Allergies Allergies: Coded Allergies: No Known Drug Allergies (Unverified , 07/31/18) ROS Review of System As per HPI Physical Exam Physical Exam General: Alert, Cooperative, mild distress, Other (mod oriened 3/4) HEENT: PERRLA, Other (op dry) Lungs: Clear to auscultation Abdomen: Normal bowel sounds, Soft (very distended, some tympany, round and full) Rectal Exam: not examined Extremities: No cyanosis, No edema, Normal pulses Skin: No rashes, No significant lesion Neuro: Normal speech, Normal tone Psych/Mental Status: Mood NL, Other (flat affect, ) Vital Signs Vital Signs Date Time Temp Pulse Resp B/P (MAP) Pulse Ox O2 Delivery O2 Flow Rate FiO2 08/01/18 08:00 Room Air 08/01/18 07:00 97.5 74 18 135/92 (106) 94 97.5 Assessment & Plan TIM- pre-renal, Poor PO intake Mildly elevated CPK , UA unremarkable CT bilat cysts both kidneys. These measure 5 mm to 4 cm in size. Continue IVF Strict I/O, daily weight Monitor for LION, Recd Iv Contrast with CT on 07/31 Hyponatremia- 2/2 to Poor PO intake Improving with IVF, continue Abdominal pain- Constipation GI consulted Labs Labs Laboratory Tests Test 07/31/18 15:05 07/31/18 15:50 08/01/18 04:50 White Blood Count 4.5 x10^3/uL (4.0-11.0) 4.5 x10^3/uL (4.0-11.0) Red Blood Count 3.90 x10^6/uL (4.30-5.70) 3.84 x10^6/uL (4.30-5.70) Hemoglobin 12.9 g/dL (13.0-17.5) 12.6 g/dL (13.0-17.5) Hematocrit 37.7 % (39.0-53.0) 37.3 % (39.0-53.0) Mean Corpuscular Volume 97 fL (79-100) 97 fL (79-100) Mean Corpuscular Hemoglobin 33 pg (25-35) 33 pg (25-35) Mean Corpuscular Hemoglobin Concent 34 g/dL (31-37) 34 g/dL (31-37) Red Cell Distribution Width 13.9 % (11.5-14.5) 14.0 % (11.5-14.5) Platelet Count 218 x10^3/uL (140-400) 221 x10^3/uL (140-400) Neutrophils (%) (Auto) 59 % (31-73) 57 % (31-73) Lymphocytes (%) (Auto) 27 % (24-48) 30 % (24-48) Monocytes (%) (Auto) 8 % (0-9) 7 % (0-9) Eosinophils (%) (Auto) 5 % (0-3) 5 % (0-3) Basophils (%) (Auto) 1 % (0-3) 1 % (0-3) Neutrophils # (Auto) 2.6 x10^3uL (1.8-7.7) 2.6 x10^3uL (1.8-7.7) Lymphocytes # (Auto) 1.2 x10^3/uL (1.0-4.8) 1.3 x10^3/uL (1.0-4.8) Monocytes # (Auto) 0.4 x10^3/uL (0.0-1.1) 0.3 x10^3/uL (0.0-1.1) Eosinophils # (Auto) 0.2 x10^3/uL (0.0-0.7) 0.2 x10^3/uL (0.0-0.7) Basophils # (Auto) 0.1 x10^3/uL (0.0-0.2) 0.0 x10^3/uL (0.0-0.2) Prothrombin Time 13.9 SEC (11.7-14.0) Prothromb Time International Ratio 1.1 (0.8-1.1) Urine Collection Type Void Urine Color Yellow Urine Clarity Clear Urine pH 6.5 Urine Specific Bentley 1.010 Urine Protein Negative mg/dL (NEG-TRACE) Urine Glucose (UA) Negative mg/dL (NEG) Urine Ketones (Stick) Negative mg/dL (NEG) Urine Blood Negative (NEG) Urine Nitrite Negative (NEG) Urine Bilirubin Negative (NEG) Urine Urobilinogen Dipstick 1.0 mg/dL (0.2 mg/dL) Urine Leukocyte Esterase Negative (NEG) Urine RBC Occ /HPF (0-2) Urine WBC 1-4 /HPF (0-4) Urine Squamous Epithelial Cells Few /LPF Urine Bacteria Few /HPF (0-FEW) Urine Hyaline Casts Few /HPF Urine Mucus Slight /LPF Urine Opiates Screen Neg (NEG) Urine Methadone Screen Neg (NEG) Urine Barbiturates Neg (NEG) Urine Phencyclidine Screen Neg (NEG) Urine Amphetamine/Methamphetamine Neg (NEG) Urine Benzodiazepines Screen Neg (NEG) Urine Cocaine Screen Neg (NEG) Urine Cannabinoids Screen Neg (NEG) Urine Ethyl Alcohol Neg (NEG) Sodium Level 128 mmol/L (136-145) 132 mmol/L (136-145) Potassium Level 3.8 mmol/L (3.5-5.1) 3.9 mmol/L (3.5-5.1) Chloride Level 90 mmol/L (98-107) 97 mmol/L (98-107) Carbon Dioxide Level 23 mmol/L (21-32) 24 mmol/L (21-32) Anion Gap 15 (6-14) 11 (6-14) Blood Urea Nitrogen 18 mg/dL (8-26) 14 mg/dL (8-26) Creatinine 1.7 mg/dL (0.7-1.3) 1.5 mg/dL (0.7-1.3) Estimated GFR (Cockcroft-Gault) 46.5 53.7 BUN/Creatinine Ratio 11 (6-20) Glucose Level 111 mg/dL (70-99) 101 mg/dL (70-99) Calcium Level 9.6 mg/dL (8.5-10.1) 8.8 mg/dL (8.5-10.1) Magnesium Level 2.2 mg/dL (1.8-2.4) Total Bilirubin 0.7 mg/dL (0.2-1.0) Aspartate Amino Transf (AST/SGOT) 84 U/L (15-37) Alanine Aminotransferase (ALT/SGPT) 26 U/L (16-63) Alkaline Phosphatase 63 U/L (46-116) Creatine Kinase 1717 U/L (39-308) Creatine Kinase MB (Mass) 17.3 ng/mL (0.0-3.6) Creatine Kinase MB Relative Index 1.0 % (0-4) Troponin I Quantitative 0.018 ng/mL (0.000-0.055) OA-Tow-B-Type Natriuretic Peptide 319 pg/mL (0-449) Total Protein 7.7 g/dL (6.4-8.2) Albumin 4.1 g/dL (3.4-5.0) Albumin/Globulin Ratio 1.1 (1.0-1.7) Lipase < 10 U/L (73-393) Ethyl Alcohol Level < 10 mg/dL (0-10) Laboratory Tests Test 07/31/18 15:05 07/31/18 15:50 08/01/18 04:50 White Blood Count 4.5 x10^3/uL (4.0-11.0) 4.5 x10^3/uL (4.0-11.0) Red Blood Count 3.90 x10^6/uL (4.30-5.70) 3.84 x10^6/uL (4.30-5.70) Hemoglobin 12.9 g/dL (13.0-17.5) 12.6 g/dL (13.0-17.5) Hematocrit 37.7 % (39.0-53.0) 37.3 % (39.0-53.0) Mean Corpuscular Volume 97 fL (79-100) 97 fL (79-100) Mean Corpuscular Hemoglobin 33 pg (25-35) 33 pg (25-35) Mean Corpuscular Hemoglobin Concent 34 g/dL (31-37) 34 g/dL (31-37) Red Cell Distribution Width 13.9 % (11.5-14.5) 14.0 % (11.5-14.5) Platelet Count 218 x10^3/uL (140-400) 221 x10^3/uL (140-400) Neutrophils (%) (Auto) 59 % (31-73) 57 % (31-73) Lymphocytes (%) (Auto) 27 % (24-48) 30 % (24-48) Monocytes (%) (Auto) 8 % (0-9) 7 % (0-9) Eosinophils (%) (Auto) 5 % (0-3) 5 % (0-3) Basophils (%) (Auto) 1 % (0-3) 1 % (0-3) Neutrophils # (Auto) 2.6 x10^3uL (1.8-7.7) 2.6 x10^3uL (1.8-7.7) Lymphocytes # (Auto) 1.2 x10^3/uL (1.0-4.8) 1.3 x10^3/uL (1.0-4.8) Monocytes # (Auto) 0.4 x10^3/uL (0.0-1.1) 0.3 x10^3/uL (0.0-1.1) Eosinophils # (Auto) 0.2 x10^3/uL (0.0-0.7) 0.2 x10^3/uL (0.0-0.7) Basophils # (Auto) 0.1 x10^3/uL (0.0-0.2) 0.0 x10^3/uL (0.0-0.2) Prothrombin Time 13.9 SEC (11.7-14.0) Prothromb Time International Ratio 1.1 (0.8-1.1) Urine Collection Type Void Urine Color Yellow Urine Clarity Clear Urine pH 6.5 Urine Specific Bentley 1.010 Urine Protein Negative mg/dL (NEG-TRACE) Urine Glucose (UA) Negative mg/dL (NEG) Urine Ketones (Stick) Negative mg/dL (NEG) Urine Blood Negative (NEG) Urine Nitrite Negative (NEG) Urine Bilirubin Negative (NEG) Urine Urobilinogen Dipstick 1.0 mg/dL (0.2 mg/dL) Urine Leukocyte Esterase Negative (NEG) Urine RBC Occ /HPF (0-2) Urine WBC 1-4 /HPF (0-4) Urine Squamous Epithelial Cells Few /LPF Urine Bacteria Few /HPF (0-FEW) Urine Hyaline Casts Few /HPF Urine Mucus Slight /LPF Urine Opiates Screen Neg (NEG) Urine Methadone Screen Neg (NEG) Urine Barbiturates Neg (NEG) Urine Phencyclidine Screen Neg (NEG) Urine Amphetamine/Methamphetamine Neg (NEG) Urine Benzodiazepines Screen Neg (NEG) Urine Cocaine Screen Neg (NEG) Urine Cannabinoids Screen Neg (NEG) Urine Ethyl Alcohol Neg (NEG) Sodium Level 128 mmol/L (136-145) 132 mmol/L (136-145) Potassium Level 3.8 mmol/L (3.5-5.1) 3.9 mmol/L (3.5-5.1) Chloride Level 90 mmol/L (98-107) 97 mmol/L (98-107) Carbon Dioxide Level 23 mmol/L (21-32) 24 mmol/L (21-32) Anion Gap 15 (6-14) 11 (6-14) Blood Urea Nitrogen 18 mg/dL (8-26) 14 mg/dL (8-26) Creatinine 1.7 mg/dL (0.7-1.3) 1.5 mg/dL (0.7-1.3) Estimated GFR (Cockcroft-Gault) 46.5 53.7 BUN/Creatinine Ratio 11 (6-20) Glucose Level 111 mg/dL (70-99) 101 mg/dL (70-99) Calcium Level 9.6 mg/dL (8.5-10.1) 8.8 mg/dL (8.5-10.1) Magnesium Level 2.2 mg/dL (1.8-2.4) Total Bilirubin 0.7 mg/dL (0.2-1.0) Aspartate Amino Transf (AST/SGOT) 84 U/L (15-37) Alanine Aminotransferase (ALT/SGPT) 26 U/L (16-63) Alkaline Phosphatase 63 U/L (46-116) Creatine Kinase 1717 U/L (39-308) Creatine Kinase MB (Mass) 17.3 ng/mL (0.0-3.6) Creatine Kinase MB Relative Index 1.0 % (0-4) Troponin I Quantitative 0.018 ng/mL (0.000-0.055) JP-Okc-Z-Type Natriuretic Peptide 319 pg/mL (0-449) Total Protein 7.7 g/dL (6.4-8.2) Albumin 4.1 g/dL (3.4-5.0) Albumin/Globulin Ratio 1.1 (1.0-1.7) Lipase < 10 U/L (73-393) Ethyl Alcohol Level < 10 mg/dL (0-10) Review All relevant outside records, renal labs, imaging studies, telemetry/EKG's were reviewed. Images Images CT scan with IV contrast 07/31 -- The liver, spleen, pancreas, and adrenal glands are within normal limits. Rounded low-attenuation lesions are seen involving both kidneys. These measure 5 mm to 4 cm in size. They likely represent cysts. ROCK OSBORNE MD August 01, 2018 10:33
[2018-08-01 11:00] VITALS: BP 130/63
[2018-08-01] MEDS ORDERED: MAGNESIUM CITRATE 296 ML SOLUTION. PO ONE (11:15)
[2018-08-01] MEDS ORDERED: METHYLNALTREXONE 12 MG/0.6 ML VIAL. SQ PRN (11:45)
[2018-08-01] MEDS ORDERED: DICYCLOMINE HCL 10 MG CAPSULE PO PRN (11:45)
--- NOTE | 2018-08-01 12:51 | NUR ---
SW following Pt for anticipated dc needs. Chart reviewed and DW RN. Pt lives at home with family. PT/OT pending. SW will await for PT/OT pending. SW will await for PT/OT recommendation to assess skilled needs. Will continue to follow.
--- NOTE | 2018-08-01 13:42 | PDOC ---
PROGRESS NOTES Chief Complaint Chief Complaint Abdominal distention secondary to constipation Acute renal failure secondary to prerenal azotemia Mild elevation of CPK Hyponatremia secondary to low effective circulatory volume Abdominal pain secondary to constipation Plan: Continue IV fluid resuscitation We'll do bowel regimen Pain management Resume home medications Further recommendations based on the clinical course Repeat labs in the a.m. History of Present Illness History of Present Illness Patient feeling very bloated with abdominal discomfort secondary to his abdominal distention. Patient is still passing gases no acute events reported overnight all of his concerns were addressed to the best of my abilities somewhat of a poor historian Vitals Vitals Vital Signs Date Time Temp Pulse Resp B/P (MAP) Pulse Ox O2 Delivery O2 Flow Rate FiO2 08/01/18 11:00 97.4 69 18 130/63 (85) 96 Room Air 97.4 Physical Exam General: Alert, Cooperative, mild distress, Other (mod oriened 3/) Abdomen: Normal bowel sounds, Soft (very distended, some tympany, round and full) Extremities: No cyanosis, No edema, Normal pulses Skin: No rashes, No significant lesion Labs LABS Laboratory Tests Test 07/31/18 15:05 07/31/18 15:50 08/01/18 04:50 White Blood Count 4.5 x10^3/uL (4.0-11.0) 4.5 x10^3/uL (4.0-11.0) Red Blood Count 3.90 x10^6/uL (4.30-5.70) 3.84 x10^6/uL (4.30-5.70) Hemoglobin 12.9 g/dL (13.0-17.5) 12.6 g/dL (13.0-17.5) Hematocrit 37.7 % (39.0-53.0) 37.3 % (39.0-53.0) Mean Corpuscular Volume 97 fL (79-100) 97 fL (79-100) Mean Corpuscular Hemoglobin 33 pg (25-35) 33 pg (25-35) Mean Corpuscular Hemoglobin Concent 34 g/dL (31-37) 34 g/dL (31-37) Red Cell Distribution Width 13.9 % (11.5-14.5) 14.0 % (11.5-14.5) Platelet Count 218 x10^3/uL (140-400) 221 x10^3/uL (140-400) Neutrophils (%) (Auto) 59 % (31-73) 57 % (31-73) Lymphocytes (%) (Auto) 27 % (24-48) 30 % (24-48) Monocytes (%) (Auto) 8 % (0-9) 7 % (0-9) Eosinophils (%) (Auto) 5 % (0-3) 5 % (0-3) Basophils (%) (Auto) 1 % (0-3) 1 % (0-3) Neutrophils # (Auto) 2.6 x10^3uL (1.8-7.7) 2.6 x10^3uL (1.8-7.7) Lymphocytes # (Auto) 1.2 x10^3/uL (1.0-4.8) 1.3 x10^3/uL (1.0-4.8) Monocytes # (Auto) 0.4 x10^3/uL (0.0-1.1) 0.3 x10^3/uL (0.0-1.1) Eosinophils # (Auto) 0.2 x10^3/uL (0.0-0.7) 0.2 x10^3/uL (0.0-0.7) Basophils # (Auto) 0.1 x10^3/uL (0.0-0.2) 0.0 x10^3/uL (0.0-0.2) Prothrombin Time 13.9 SEC (11.7-14.0) Prothromb Time International Ratio 1.1 (0.8-1.1) Urine Collection Type Void Urine Color Yellow Urine Clarity Clear Urine pH 6.5 Urine Specific Wallace 1.010 Urine Protein Negative mg/dL (NEG-TRACE) Urine Glucose (UA) Negative mg/dL (NEG) Urine Ketones (Stick) Negative mg/dL (NEG) Urine Blood Negative (NEG) Urine Nitrite Negative (NEG) Urine Bilirubin Negative (NEG) Urine Urobilinogen Dipstick 1.0 mg/dL (0.2 mg/dL) Urine Leukocyte Esterase Negative (NEG) Urine RBC Occ /HPF (0-2) Urine WBC 1-4 /HPF (0-4) Urine Squamous Epithelial Cells Few /LPF Urine Bacteria Few /HPF (0-FEW) Urine Hyaline Casts Few /HPF Urine Mucus Slight /LPF Urine Opiates Screen Neg (NEG) Urine Methadone Screen Neg (NEG) Urine Barbiturates Neg (NEG) Urine Phencyclidine Screen Neg (NEG) Urine Amphetamine/Methamphetamine Neg (NEG) Urine Benzodiazepines Screen Neg (NEG) Urine Cocaine Screen Neg (NEG) Urine Cannabinoids Screen Neg (NEG) Urine Ethyl Alcohol Neg (NEG) Sodium Level 128 mmol/L (136-145) 132 mmol/L (136-145) Potassium Level 3.8 mmol/L (3.5-5.1) 3.9 mmol/L (3.5-5.1) Chloride Level 90 mmol/L (98-107) 97 mmol/L (98-107) Carbon Dioxide Level 23 mmol/L (21-32) 24 mmol/L (21-32) Anion Gap 15 (6-14) 11 (6-14) Blood Urea Nitrogen 18 mg/dL (8-26) 14 mg/dL (8-26) Creatinine 1.7 mg/dL (0.7-1.3) 1.5 mg/dL (0.7-1.3) Estimated GFR (Cockcroft-Gault) 46.5 53.7 BUN/Creatinine Ratio 11 (6-20) Glucose Level 111 mg/dL (70-99) 101 mg/dL (70-99) Calcium Level 9.6 mg/dL (8.5-10.1) 8.8 mg/dL (8.5-10.1) Magnesium Level 2.2 mg/dL (1.8-2.4) Total Bilirubin 0.7 mg/dL (0.2-1.0) Aspartate Amino Transf (AST/SGOT) 84 U/L (15-37) Alanine Aminotransferase (ALT/SGPT) 26 U/L (16-63) Alkaline Phosphatase 63 U/L (46-116) Creatine Kinase 1717 U/L (39-308) Creatine Kinase MB (Mass) 17.3 ng/mL (0.0-3.6) Creatine Kinase MB Relative Index 1.0 % (0-4) Troponin I Quantitative 0.018 ng/mL (0.000-0.055) FH-Tuj-H-Type Natriuretic Peptide 319 pg/mL (0-449) Total Protein 7.7 g/dL (6.4-8.2) Albumin 4.1 g/dL (3.4-5.0) Albumin/Globulin Ratio 1.1 (1.0-1.7) Lipase < 10 U/L (73-393) Ethyl Alcohol Level < 10 mg/dL (0-10) Thyroid Stimulating Hormone (TSH) 5.491 uIU/mL (0.358-3.74) Review of Systems Review of Systems Pertinent as per history of present illness otherwise 14 point review of system is negative Assessment and Plan Assessmemt and Plan Problems Medical Problems: (1) Chronic abdominal pain Status: Acute (2) Constipation Status: Acute (3) Hyponatremia Status: Acute (4) Rhabdomyolysis Status: Acute Comment Review of Relevant I have reviewed the following items jersey (where applicable) has been applied. Labs Laboratory Tests Test 07/31/18 15:05 07/31/18 15:50 08/01/18 04:50 White Blood Count 4.5 x10^3/uL (4.0-11.0) 4.5 x10^3/uL (4.0-11.0) Red Blood Count 3.90 x10^6/uL (4.30-5.70) 3.84 x10^6/uL (4.30-5.70) Hemoglobin 12.9 g/dL (13.0-17.5) 12.6 g/dL (13.0-17.5) Hematocrit 37.7 % (39.0-53.0) 37.3 % (39.0-53.0) Mean Corpuscular Volume 97 fL (79-100) 97 fL (79-100) Mean Corpuscular Hemoglobin 33 pg (25-35) 33 pg (25-35) Mean Corpuscular Hemoglobin Concent 34 g/dL (31-37) 34 g/dL (31-37) Red Cell Distribution Width 13.9 % (11.5-14.5) 14.0 % (11.5-14.5) Platelet Count 218 x10^3/uL (140-400) 221 x10^3/uL (140-400) Neutrophils (%) (Auto) 59 % (31-73) 57 % (31-73) Lymphocytes (%) (Auto) 27 % (24-48) 30 % (24-48) Monocytes (%) (Auto) 8 % (0-9) 7 % (0-9) Eosinophils (%) (Auto) 5 % (0-3) 5 % (0-3) Basophils (%) (Auto) 1 % (0-3) 1 % (0-3) Neutrophils # (Auto) 2.6 x10^3uL (1.8-7.7) 2.6 x10^3uL (1.8-7.7) Lymphocytes # (Auto) 1.2 x10^3/uL (1.0-4.8) 1.3 x10^3/uL (1.0-4.8) Monocytes # (Auto) 0.4 x10^3/uL (0.0-1.1) 0.3 x10^3/uL (0.0-1.1) Eosinophils # (Auto) 0.2 x10^3/uL (0.0-0.7) 0.2 x10^3/uL (0.0-0.7) Basophils # (Auto) 0.1 x10^3/uL (0.0-0.2) 0.0 x10^3/uL (0.0-0.2) Prothrombin Time 13.9 SEC (11.7-14.0) Prothromb Time International Ratio 1.1 (0.8-1.1) Urine Collection Type Void Urine Color Yellow Urine Clarity Clear Urine pH 6.5 Urine Specific Wallace 1.010 Urine Protein Negative mg/dL (NEG-TRACE) Urine Glucose (UA) Negative mg/dL (NEG) Urine Ketones (Stick) Negative mg/dL (NEG) Urine Blood Negative (NEG) Urine Nitrite Negative (NEG) Urine Bilirubin Negative (NEG) Urine Urobilinogen Dipstick 1.0 mg/dL (0.2 mg/dL) Urine Leukocyte Esterase Negative (NEG) Urine RBC Occ /HPF (0-2) Urine WBC 1-4 /HPF (0-4) Urine Squamous Epithelial Cells Few /LPF Urine Bacteria Few /HPF (0-FEW) Urine Hyaline Casts Few /HPF Urine Mucus Slight /LPF Urine Opiates Screen Neg (NEG) Urine Methadone Screen Neg (NEG) Urine Barbiturates Neg (NEG) Urine Phencyclidine Screen Neg (NEG) Urine Amphetamine/Methamphetamine Neg (NEG) Urine Benzodiazepines Screen Neg (NEG) Urine Cocaine Screen Neg (NEG) Urine Cannabinoids Screen Neg (NEG) Urine Ethyl Alcohol Neg (NEG) Sodium Level 128 mmol/L (136-145) 132 mmol/L (136-145) Potassium Level 3.8 mmol/L (3.5-5.1) 3.9 mmol/L (3.5-5.1) Chloride Level 90 mmol/L (98-107) 97 mmol/L (98-107) Carbon Dioxide Level 23 mmol/L (21-32) 24 mmol/L (21-32) Anion Gap 15 (6-14) 11 (6-14) Blood Urea Nitrogen 18 mg/dL (8-26) 14 mg/dL (8-26) Creatinine 1.7 mg/dL (0.7-1.3) 1.5 mg/dL (0.7-1.3) Estimated GFR (Cockcroft-Gault) 46.5 53.7 BUN/Creatinine Ratio 11 (6-20) Glucose Level 111 mg/dL (70-99) 101 mg/dL (70-99) Calcium Level 9.6 mg/dL (8.5-10.1) 8.8 mg/dL (8.5-10.1) Magnesium Level 2.2 mg/dL (1.8-2.4) Total Bilirubin 0.7 mg/dL (0.2-1.0) Aspartate Amino Transf (AST/SGOT) 84 U/L (15-37) Alanine Aminotransferase (ALT/SGPT) 26 U/L (16-63) Alkaline Phosphatase 63 U/L (46-116) Creatine Kinase 1717 U/L (39-308) Creatine Kinase MB (Mass) 17.3 ng/mL (0.0-3.6) Creatine Kinase MB Relative Index 1.0 % (0-4) Troponin I Quantitative 0.018 ng/mL (0.000-0.055) IW-Msy-X-Type Natriuretic Peptide 319 pg/mL (0-449) Total Protein 7.7 g/dL (6.4-8.2) Albumin 4.1 g/dL (3.4-5.0) Albumin/Globulin Ratio 1.1 (1.0-1.7) Lipase < 10 U/L (73-393) Ethyl Alcohol Level < 10 mg/dL (0-10) Thyroid Stimulating Hormone (TSH) 5.491 uIU/mL (0.358-3.74) Laboratory Tests Test 07/31/18 15:05 07/31/18 15:50 08/01/18 04:50 White Blood Count 4.5 x10^3/uL (4.0-11.0) 4.5 x10^3/uL (4.0-11.0) Red Blood Count 3.90 x10^6/uL (4.30-5.70) 3.84 x10^6/uL (4.30-5.70) Hemoglobin 12.9 g/dL (13.0-17.5) 12.6 g/dL (13.0-17.5) Hematocrit 37.7 % (39.0-53.0) 37.3 % (39.0-53.0) Mean Corpuscular Volume 97 fL (79-100) 97 fL (79-100) Mean Corpuscular Hemoglobin 33 pg (25-35) 33 pg (25-35) Mean Corpuscular Hemoglobin Concent 34 g/dL (31-37) 34 g/dL (31-37) Red Cell Distribution Width 13.9 % (11.5-14.5) 14.0 % (11.5-14.5) Platelet Count 218 x10^3/uL (140-400) 221 x10^3/uL (140-400) Neutrophils (%) (Auto) 59 % (31-73) 57 % (31-73) Lymphocytes (%) (Auto) 27 % (24-48) 30 % (24-48) Monocytes (%) (Auto) 8 % (0-9) 7 % (0-9) Eosinophils (%) (Auto) 5 % (0-3) 5 % (0-3) Basophils (%) (Auto) 1 % (0-3) 1 % (0-3) Neutrophils # (Auto) 2.6 x10^3uL (1.8-7.7) 2.6 x10^3uL (1.8-7.7) Lymphocytes # (Auto) 1.2 x10^3/uL (1.0-4.8) 1.3 x10^3/uL (1.0-4.8) Monocytes # (Auto) 0.4 x10^3/uL (0.0-1.1) 0.3 x10^3/uL (0.0-1.1) Eosinophils # (Auto) 0.2 x10^3/uL (0.0-0.7) 0.2 x10^3/uL (0.0-0.7) Basophils # (Auto) 0.1 x10^3/uL (0.0-0.2) 0.0 x10^3/uL (0.0-0.2) Prothrombin Time 13.9 SEC (11.7-14.0) Prothromb Time International Ratio 1.1 (0.8-1.1) Urine Collection Type Void Urine Color Yellow Urine Clarity Clear Urine pH 6.5 Urine Specific Wallace 1.010 Urine Protein Negative mg/dL (NEG-TRACE) Urine Glucose (UA) Negative mg/dL (NEG) Urine Ketones (Stick) Negative mg/dL (NEG) Urine Blood Negative (NEG) Urine Nitrite Negative (NEG) Urine Bilirubin Negative (NEG) Urine Urobilinogen Dipstick 1.0 mg/dL (0.2 mg/dL) Urine Leukocyte Esterase Negative (NEG) Urine RBC Occ /HPF (0-2) Urine WBC 1-4 /HPF (0-4) Urine Squamous Epithelial Cells Few /LPF Urine Bacteria Few /HPF (0-FEW) Urine Hyaline Casts Few /HPF Urine Mucus Slight /LPF Urine Opiates Screen Neg (NEG) Urine Methadone Screen Neg (NEG) Urine Barbiturates Neg (NEG) Urine Phencyclidine Screen Neg (NEG) Urine Amphetamine/Methamphetamine Neg (NEG) Urine Benzodiazepines Screen Neg (NEG) Urine Cocaine Screen Neg (NEG) Urine Cannabinoids Screen Neg (NEG) Urine Ethyl Alcohol Neg (NEG) Sodium Level 128 mmol/L (136-145) 132 mmol/L (136-145) Potassium Level 3.8 mmol/L (3.5-5.1) 3.9 mmol/L (3.5-5.1) Chloride Level 90 mmol/L (98-107) 97 mmol/L (98-107) Carbon Dioxide Level 23 mmol/L (21-32) 24 mmol/L (21-32) Anion Gap 15 (6-14) 11 (6-14) Blood Urea Nitrogen 18 mg/dL (8-26) 14 mg/dL (8-26) Creatinine 1.7 mg/dL (0.7-1.3) 1.5 mg/dL (0.7-1.3) Estimated GFR (Cockcroft-Gault) 46.5 53.7 BUN/Creatinine Ratio 11 (6-20) Glucose Level 111 mg/dL (70-99) 101 mg/dL (70-99) Calcium Level 9.6 mg/dL (8.5-10.1) 8.8 mg/dL (8.5-10.1) Magnesium Level 2.2 mg/dL (1.8-2.4) Total Bilirubin 0.7 mg/dL (0.2-1.0) Aspartate Amino Transf (AST/SGOT) 84 U/L (15-37) Alanine Aminotransferase (ALT/SGPT) 26 U/L (16-63) Alkaline Phosphatase 63 U/L (46-116) Creatine Kinase 1717 U/L (39-308) Creatine Kinase MB (Mass) 17.3 ng/mL (0.0-3.6) Creatine Kinase MB Relative Index 1.0 % (0-4) Troponin I Quantitative 0.018 ng/mL (0.000-0.055) DP-Avh-D-Type Natriuretic Peptide 319 pg/mL (0-449) Total Protein 7.7 g/dL (6.4-8.2) Albumin 4.1 g/dL (3.4-5.0) Albumin/Globulin Ratio 1.1 (1.0-1.7) Lipase < 10 U/L (73-393) Ethyl Alcohol Level < 10 mg/dL (0-10) Thyroid Stimulating Hormone (TSH) 5.491 uIU/mL (0.358-3.74) Medications Current Medications Morphine Sulfate (Morphine Sulfate) 2 mg PRN Q15MIN PRN IV/SQ PAIN GREATER THAN 3/10; Start 07/31/18 at 14:30; Stop 08/01/18 at 11:50; Status DC Iohexol (Omnipaque 300 Mg/ml) 60 ml 1X ONCE IV Last administered on 07/31/18at 16:37; Start 07/31/18 at 16:30; Stop 07/31/18 at 16:31; Status DC Info (CONTRAST GIVEN -- Rx MONITORING) 1 each PRN DAILY PRN MC SEE COMMENTS; Start 07/31/18 at 16:30; Stop 08/02/18 at 16:29 Sodium Chloride 1,000 ml @ 1,000 mls/hr 1X ONCE IV Last administered on 07/31/18at 17:04; Start 07/31/18 at 17:00; Stop 07/31/18 at 17:59; Status DC Sodium Chloride 1,000 ml @ 1,000 mls/hr 1X ONCE IV Last administered on 07/31/18at 17:58; Start 07/31/18 at 18:00; Stop 07/31/18 at 18:59; Status DC Sodium Chloride 1,000 ml @ 1,000 mls/hr 1X ONCE IV Last administered on 07/31/18at 17:58; Start 07/31/18 at 18:00; Stop 07/31/18 at 18:59; Status DC Ondansetron HCl (Zofran) 4 mg PRN Q8HRS PRN IV NAUSEA/VOMITING; Start 07/31/18 at 18:00; Stop 08/01/18 at 17:59 Morphine Sulfate (Morphine Sulfate) 2 mg PRN Q2HR PRN IV PAIN; Start 07/31/18 at 18:00; Stop 08/01/18 at 11:50; Status DC Acetaminophen (Tylenol) 650 mg PRN Q4HRS PRN PO FEVER; Start 07/31/18 at 18:00; Stop 08/01/18 at 17:59 Sodium Chloride 1,000 ml @ 125 mls/hr 1X ONCE IV Last administered on 07/31/18at 20:38; Start 07/31/18 at 18:00; Stop 08/01/18 at 01:59; Status DC Polyethylene Glycol (miraLAX PACKET) 17 gm BID PO Last administered on 08/01/18at 08:40; Start 07/31/18 at 21:00 Docusate Sodium (Colace) 100 mg DAILY PO Last administered on 08/01/18at 08:40; Start 08/01/18 at 09:00 Docusate Sodium (Colace) 100 mg PRN DAILY PRN PO CONSTIPATION; Start 07/31/18 at 20:45 Sodium Monofluorophosphate (Fleet Adult) 133 ml 1X ONCE DE ; Start 07/31/18 at 20:45; Stop 07/31/18 at 20:46; Status DC Sodium Chloride 1,000 ml @ 100 mls/hr Q10H IV Last administered on 08/01/18at 05:07; Start 07/31/18 at 20:45 Magnesium Citrate (Citroma) 296 ml 1X ONCE PO Last administered on 08/01/18at 12:37; Start 08/01/18 at 11:15; Stop 08/01/18 at 11:16; Status DC Dicyclomine HCl (Bentyl) 10 mg PRN Q6HRS PRN PO abdominal pain; Start 08/01/18 at 11:45 Methylnaltrexone [place] (Relistor) 12 mg PRN Q48HR PRN SQ CONSTIPATION; Start 08/01/18 at 11:45 Vitals/I & O Vital Sign - Last 24 Hours 07/31/18 07/31/18 07/31/18 07/31/18 14:04 14:30 15:30 16:30 Temp 98.2 98.2 Pulse 71 68 60 68 Resp 20 16 18 18 B/P (MAP) 153/70 (97) 136/82 (100) 143/85 (104) 155/71 (99) Pulse Ox 96 96 95 96 O2 Delivery Room Air Room Air Room Air Room Air 07/31/18 07/31/18 07/31/18 07/31/18 17:30 18:30 20:00 20:05 Temp 97.7 97.7 Pulse 64 66 60 Resp 18 18 16 B/P (MAP) 149/79 (102) 150/78 (102) 123/86 (98) Pulse Ox 96 96 98 O2 Delivery Room Air Room Air Room Air Room Air 07/31/18 08/01/18 08/01/18 08/01/18 23:40 03:40 07:00 08:00 Temp 98.0 97.4 97.5 98.0 97.4 97.5 Pulse 64 59 74 Resp 16 16 18 B/P (MAP) 129/83 (98) 124/82 (96) 135/92 (106) Pulse Ox 97 97 94 O2 Delivery Room Air Room Air Room Air Room Air 08/01/18 11:00 Temp 97.4 97.4 Pulse 69 Resp 18 B/P (MAP) 130/63 (85) Pulse Ox 96 O2 Delivery Room Air Intake and Output 5/14/19 5/14/19 5/15/19 15:00 23:00 07:00 Intake Total 3000 ml 1000 ml Output Total 1000 ml Balance 3000 ml 0 ml SERG DONAHUE MD August 01, 2018 13:42
[2018-08-01 15:00] VITALS: BP 142/92
[2018-08-01] MEDS ORDERED: SODIUM PHOSPHATES 19/7GM 133 ML ENEMA. PR ONE (17:30)
[2018-08-01 19:00] VITALS: BP 135/72
[2018-08-01 23:00] VITALS: BP 132/81
[2018-08-02 03:55] VITALS: BP 142/79
[2018-08-02 04:48] LABS: CALCIUM 8.6 mg/dL (8.5-10.1); CREATININE 1.4 mg/dL (0.7-1.3); GFR 58.1; POTASSIUM 3.9 mmol/L (3.5-5.1)
[2018-08-02] MEDS: IV NORMAL SALINE 1000ML BAG 1,000 ML IV SCH ×2 (05:37→15:54)
[2018-08-02 06:59] VITALS: BP 149/94
--- NOTE | 2018-08-02 07:40 | EKG ---
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
[2018-08-02] MEDS: DOCUSATE SODIUM 100 MG CAPSULE. PO SCH (08:16)
[2018-08-02] MEDS: POLYETHYLENE GLYCOL 3350 17 GM PACKET. PO SCH ×2 (08:16→21:55)
[2018-08-02] MEDS ORDERED: PEG 3350/NA SULF,BICARB,CL/KCL 4,000 ML SOLUTION. PO ONE (09:00)
[2018-08-02 10:54] VITALS: BP 120/58
[2018-08-02 11:20] LABS: FREE T4 < 0.10 ng/dL (0.76-1.46)
--- NOTE | 2018-08-02 12:10 | PDOC ---
Subjective: Subjective: Repeatedly asks if he drinks something clear if it will come out clear. Feels the same. The commode is uncomfortable. Objective: Objective: Reviewed w/ RN - drinking GoLytely, now stooling ("mush"). [facility] not [facility] Relistor. [facility]. Vital Signs: Vital Signs Date Time Temp Pulse Resp B/P (MAP) Pulse Ox O2 Delivery O2 Flow Rate FiO2 08/02/18 10:54 97.5 56 22 120/58 (78) 92 Room Air 97.5 Labs: Laboratory Tests Test 08/02/18 03:30 Sodium Level 132 mmol/L Potassium Level 3.9 mmol/L Chloride Level 97 mmol/L Carbon Dioxide Level 24 mmol/L Anion Gap 11 Blood Urea Nitrogen 11 mg/dL Creatinine 1.4 mg/dL Estimated GFR (Cockcroft-Gault) 58.1 Glucose Level 109 mg/dL Calcium Level 8.6 mg/dL Creatine Kinase 1948 U/L Troponin I Quantitative 0.026 ng/mL Free Thyroxine < 0.10 ng/dL Free Triiodothyronine (T3) pg/mL < 0.50 pg/mL PE: GEN: NAD LUNGS: CTAB HEART: RRR ABD: BS more active, still round/distended/tight NEURO/PSYCH: A & O 3 A/P: Abd distention, constipation -- [facility]. Will review w/ Dr. Taylor - stooling w/ Jesu. YOSELIN PRAKASH August 02, 2018 12:10
--- NOTE | 2018-08-02 12:39 | PDOC ---
SUBJECTIVE ROS States cant drink any more Golytely , feels bloated Good uop. No N/V /D OBJECTIVE Vital Signs Vital Signs Date Time Temp Pulse Resp B/P (MAP) Pulse Ox O2 Delivery O2 Flow Rate FiO2 08/02/18 10:54 97.5 56 22 120/58 (78) 92 Room Air 97.5 I & 0 Intake and Output 08/02/18 07:00 Intake Total 150 ml Output Total 1820 ml Balance -1670 ml Intake Oral 150 ml Output Urine Total 1820 ml # Voids 2 # Bowel Movements 1 PHYSICAL EXAM Physical Exam General: NAD HEENT: OM moist Lungs: Clear to auscultation Abdomen: Obese , NT Extremities: No edema Skin: No rashes, No significant lesion Neuro: Grossly normal DIAGNOSIS/ASSESSMENT Assessment & Plan TIM- pre-renal, Poor PO intake Mildly elevated CPK , UA unremarkable CT bilat cysts both kidneys. These measure 5 mm to 4 cm in size. Strict I/O, Monitor for LION, Recd Iv Contrast with CT on 07/31 Hyponatremia- 2/2 to Poor PO intake, Hypothyroidism stable Abdominal pain- Constipation GI consulted COMMENT/RELEVANT DATA Meds Current Medications Medications (Trade) Dose Ordered Sig/Steve Start Time Stop Time Status Last Admin Dose Admin Acetaminophen (Tylenol) 650 mg PRN Q4HRS PRN 07/31/18 18:00 08/01/18 17:59 DC Dicyclomine HCl (Bentyl) 10 mg PRN Q6HRS PRN 08/01/18 11:45 Docusate Sodium (Colace) 100 mg PRN DAILY PRN 07/31/18 20:45 Info (CONTRAST GIVEN -- Rx MONITORING) 1 each PRN DAILY PRN 07/31/18 16:30 08/02/18 16:29 Iohexol (Omnipaque 300 Mg/ml) 60 ml 1X ONCE 07/31/18 16:30 07/31/18 16:31 DC 07/31/18 16:37 60 ML Magnesium Citrate (Citroma) 296 ml 1X ONCE 08/01/18 11:15 08/01/18 11:16 DC 08/01/18 12:37 296 ML Methylnaltrexone [place] (Relistor) 12 mg PRN Q48HR PRN 08/01/18 11:45 Morphine Sulfate (Morphine Sulfate) 2 mg PRN Q2HR PRN 07/31/18 18:00 08/01/18 11:50 DC Ondansetron HCl (Zofran) 4 mg PRN Q8HRS PRN 07/31/18 18:00 08/01/18 17:59 DC Polyethylene Glycol (miraLAX PACKET) 17 gm BID 07/31/18 21:00 08/02/18 08:16 17 GM Sodium Monofluorophosphate (Fleet Adult) 133 ml 1X ONCE 08/01/18 17:30 08/01/18 17:31 DC 08/01/18 18:06 133 ML Sodium Chloride 1,000 ml @ 100 mls/hr Q10H 07/31/18 20:45 08/02/18 05:37 100 MLS/HR Sodium Cl/Sod Bicarb/Potass Cl/ PEG (Golytely) 4,000 ml 1X ONCE 08/02/18 09:00 08/02/18 09:01 DC 08/02/18 09:19 4,000 ML Lab Laboratory Tests Test 08/02/18 03:30 Sodium Level 132 mmol/L (136-145) Potassium Level 3.9 mmol/L (3.5-5.1) Chloride Level 97 mmol/L (98-107) Carbon Dioxide Level 24 mmol/L (21-32) Anion Gap 11 (6-14) Blood Urea Nitrogen 11 mg/dL (8-26) Creatinine 1.4 mg/dL (0.7-1.3) Estimated GFR (Cockcroft-Gault) 58.1 Glucose Level 109 mg/dL (70-99) Calcium Level 8.6 mg/dL (8.5-10.1) Creatine Kinase 1948 U/L (39-308) Troponin I Quantitative 0.026 ng/mL (0.000-0.055) Free Thyroxine < 0.10 ng/dL (0.76-1.46) Free Triiodothyronine (T3) pg/mL < 0.50 pg/mL (2.18-3.98) Results All relevant outside records, renal labs, imaging studies, telemetry/EKG's were reviewed. ROCK OSBORNE MD August 02, 2018 12:39
[2018-08-02 14:16] VITALS: BP 137/78
[2018-08-02] MEDS: LEVOTHYROXINE 125 MCG TABLET PO SCH (16:29)
[2018-08-02] MEDS ORDERED: BISACODYL 10 MG SUPP.RECT. PR ONE (16:30)
[2018-08-02 19:42] VITALS: BP_SYST 122; BP_SYST 138; BP_DIAS 77; BP_DIAS 91
--- NOTE | 2018-08-02 21:09 | PDOC ---
PROGRESS NOTES Chief Complaint Chief Complaint Hypothyroidism Hyponatremia secondary to the above Abdominal distention secondary to constipation Acute renal failure secondary to prerenal azotemia Mild elevation of CPK Hyponatremia secondary to low effective circulatory volume Abdominal pain secondary to constipation Plan: Melvin start synthroid Pain management Resume home medications Further recommendations based on the clinical course History of Present Illness History of Present Illness Patient feeling very bloated with abdominal discomfort secondary to his abdominal distention. Patient is still passing gases no acute events reported overnight all of his concerns were addressed to the best of my abilities somewhat of a poor historian Vitals Vitals Vital Signs Date Time Temp Pulse Resp B/P (MAP) Pulse Ox O2 Delivery O2 Flow Rate FiO2 08/02/18 19:42 97.5 79 18 122/91 (101) 97 Room Air 97.5 Physical Exam General: Alert, Cooperative, mild distress, Other (mod oriened 3/4) Abdomen: Normal bowel sounds, Soft (very distended, some tympany, round and full) Extremities: No cyanosis, No edema, Normal pulses Skin: No rashes, No significant lesion Labs LABS Laboratory Tests Test 08/02/18 03:30 Sodium Level 132 mmol/L (136-145) Potassium Level 3.9 mmol/L (3.5-5.1) Chloride Level 97 mmol/L (98-107) Carbon Dioxide Level 24 mmol/L (21-32) Anion Gap 11 (6-14) Blood Urea Nitrogen 11 mg/dL (8-26) Creatinine 1.4 mg/dL (0.7-1.3) Estimated GFR (Cockcroft-Gault) 58.1 Glucose Level 109 mg/dL (70-99) Calcium Level 8.6 mg/dL (8.5-10.1) Creatine Kinase 1948 U/L (39-308) Troponin I Quantitative 0.026 ng/mL (0.000-0.055) Free Thyroxine < 0.10 ng/dL (0.76-1.46) Free Triiodothyronine (T3) pg/mL < 0.50 pg/mL (2.18-3.98) Total Triiodothyronine <20 ng/dL (71-180) Assessment and Plan Assessmemt and Plan Problems Medical Problems: (1) Chronic abdominal pain Status: Acute (2) Constipation Status: Acute (3) Hyponatremia Status: Acute (4) Rhabdomyolysis Status: Acute Comment Review of Relevant I have reviewed the following items jersey (where applicable) has been applied. Labs Laboratory Tests Test 08/01/18 04:50 08/02/18 03:30 White Blood Count 4.5 x10^3/uL (4.0-11.0) Red Blood Count 3.84 x10^6/uL (4.30-5.70) Hemoglobin 12.6 g/dL (13.0-17.5) Hematocrit 37.3 % (39.0-53.0) Mean Corpuscular Volume 97 fL (79-100) Mean Corpuscular Hemoglobin 33 pg (25-35) Mean Corpuscular Hemoglobin Concent 34 g/dL (31-37) Red Cell Distribution Width 14.0 % (11.5-14.5) Platelet Count 221 x10^3/uL (140-400) Neutrophils (%) (Auto) 57 % (31-73) Lymphocytes (%) (Auto) 30 % (24-48) Monocytes (%) (Auto) 7 % (0-9) Eosinophils (%) (Auto) 5 % (0-3) Basophils (%) (Auto) 1 % (0-3) Neutrophils # (Auto) 2.6 x10^3uL (1.8-7.7) Lymphocytes # (Auto) 1.3 x10^3/uL (1.0-4.8) Monocytes # (Auto) 0.3 x10^3/uL (0.0-1.1) Eosinophils # (Auto) 0.2 x10^3/uL (0.0-0.7) Basophils # (Auto) 0.0 x10^3/uL (0.0-0.2) Sodium Level 132 mmol/L (136-145) 132 mmol/L (136-145) Potassium Level 3.9 mmol/L (3.5-5.1) 3.9 mmol/L (3.5-5.1) Chloride Level 97 mmol/L (98-107) 97 mmol/L (98-107) Carbon Dioxide Level 24 mmol/L (21-32) 24 mmol/L (21-32) Anion Gap 11 (6-14) 11 (6-14) Blood Urea Nitrogen 14 mg/dL (8-26) 11 mg/dL (8-26) Creatinine 1.5 mg/dL (0.7-1.3) 1.4 mg/dL (0.7-1.3) Estimated GFR (Cockcroft-Gault) 53.7 58.1 Glucose Level 101 mg/dL (70-99) 109 mg/dL (70-99) Calcium Level 8.8 mg/dL (8.5-10.1) 8.6 mg/dL (8.5-10.1) Thyroid Stimulating Hormone (TSH) 5.491 uIU/mL (0.358-3.74) Creatine Kinase 1948 U/L (39-308) Troponin I Quantitative 0.026 ng/mL (0.000-0.055) Free Thyroxine < 0.10 ng/dL (0.76-1.46) Free Triiodothyronine (T3) pg/mL < 0.50 pg/mL (2.18-3.98) Total Triiodothyronine <20 ng/dL (71-180) Laboratory Tests Test 08/02/18 03:30 Sodium Level 132 mmol/L (136-145) Potassium Level 3.9 mmol/L (3.5-5.1) Chloride Level 97 mmol/L (98-107) Carbon Dioxide Level 24 mmol/L (21-32) Anion Gap 11 (6-14) Blood Urea Nitrogen 11 mg/dL (8-26) Creatinine 1.4 mg/dL (0.7-1.3) Estimated GFR (Cockcroft-Gault) 58.1 Glucose Level 109 mg/dL (70-99) Calcium Level 8.6 mg/dL (8.5-10.1) Creatine Kinase 1948 U/L (39-308) Troponin I Quantitative 0.026 ng/mL (0.000-0.055) Free Thyroxine < 0.10 ng/dL (0.76-1.46) Free Triiodothyronine (T3) pg/mL < 0.50 pg/mL (2.18-3.98) Total Triiodothyronine <20 ng/dL (71-180) Medications Current Medications Morphine Sulfate (Morphine Sulfate) 2 mg PRN Q15MIN PRN IV/SQ PAIN GREATER THAN 3/10; Start 07/31/18 at 14:30; Stop 08/01/18 at 11:50; Status DC Iohexol (Omnipaque 300 Mg/ml) 60 ml 1X ONCE IV Last administered on 07/31/18at 16:37; Start 07/31/18 at 16:30; Stop 07/31/18 at 16:31; Status DC Info (CONTRAST GIVEN -- Rx MONITORING) 1 each PRN DAILY PRN MC SEE COMMENTS; Start 07/31/18 at 16:30; Stop 08/02/18 at 16:29; Status DC Sodium Chloride 1,000 ml @ 1,000 mls/hr 1X ONCE IV Last administered on 07/31/18at 17:04; Start 07/31/18 at 17:00; Stop 07/31/18 at 17:59; Status DC Sodium Chloride 1,000 ml @ 1,000 mls/hr 1X ONCE IV Last administered on 07/31/18at 17:58; Start 07/31/18 at 18:00; Stop 07/31/18 at 18:59; Status DC Sodium Chloride 1,000 ml @ 1,000 mls/hr 1X ONCE IV Last administered on 07/31/18at 17:58; Start 07/31/18 at 18:00; Stop 07/31/18 at 18:59; Status DC Ondansetron HCl (Zofran) 4 mg PRN Q8HRS PRN IV NAUSEA/VOMITING; Start 07/31/18 at 18:00; Stop 08/01/18 at 17:59; Status DC Morphine Sulfate (Morphine Sulfate) 2 mg PRN Q2HR PRN IV PAIN; Start 07/31/18 at 18:00; Stop 08/01/18 at 11:50; Status DC Acetaminophen (Tylenol) 650 mg PRN Q4HRS PRN PO FEVER; Start 07/31/18 at 18:00; Stop 08/01/18 at 17:59; Status DC Sodium Chloride 1,000 ml @ 125 mls/hr 1X ONCE IV Last administered on 07/31/18at 20:38; Start 07/31/18 at 18:00; Stop 08/01/18 at 01:59; Status DC Polyethylene Glycol (miraLAX PACKET) 17 gm BID PO Last administered on 08/02/18at 08:16; Start 07/31/18 at 21:00 Docusate Sodium (Colace) 100 mg DAILY PO Last administered on 08/02/18at 08:16; Start 08/01/18 at 09:00 Docusate Sodium (Colace) 100 mg PRN DAILY PRN PO CONSTIPATION; Start 07/31/18 at 20:45 Sodium Monofluorophosphate (Fleet Adult) 133 ml 1X ONCE NV ; Start 07/31/18 at 20:45; Stop 07/31/18 at 20:46; Status DC Sodium Chloride 1,000 ml @ 100 mls/hr Q10H IV Last administered on 08/02/18at 15:54; Start 07/31/18 at 20:45 Magnesium Citrate (Citroma) 296 ml 1X ONCE PO Last administered on 08/01/18at 12:37; Start 08/01/18 at 11:15; Stop 08/01/18 at 11:16; Status DC Dicyclomine HCl (Bentyl) 10 mg PRN Q6HRS PRN PO abdominal pain; Start 08/01/18 at 11:45 Methylnaltrexone [place] (Relistor) 12 mg PRN Q48HR PRN SQ CONSTIPATION; Start 08/01/18 at 11:45 Sodium Monofluorophosphate (Fleet Adult) 133 ml 1X ONCE NV Last administered on 08/01/18at 18:06; Start 08/01/18 at 17:30; Stop 08/01/18 at 17:31; Status DC Sodium Cl/Sod Bicarb/Potass Cl/ PEG (Golytely) 4,000 ml 1X ONCE PO Last administered on 08/02/18at 09:19; Start 08/02/18 at 09:00; Stop 08/02/18 at 09:01; Status DC Levothyroxine Sodium (Synthroid) 125 mcg DAILY06 PO Last administered on 08/02/18at 16:29; Start 08/02/18 at 15:30 Bisacodyl (Dulcolax Supp) 10 mg 1X ONCE NV ; Start 08/02/18 at 16:30; Stop 08/02/18 at 16:31; Status DC Vitals/I & O Vital Sign - Last 24 Hours 08/01/18 08/02/18 08/02/18 08/02/18 23:00 03:55 06:59 08:00 Temp 98.0 98.3 97.5 98.0 98.3 97.5 Pulse 59 69 77 Resp 18 16 18 B/P (MAP) 132/81 (98) 142/79 (100) 149/94 (112) Pulse Ox 95 96 93 O2 Delivery Room Air Room Air Room Air Room Air 08/02/18 08/02/18 08/02/18 10:54 14:16 19:42 Temp 97.5 97.9 97.5 97.5 97.9 97.5 Pulse 56 69 79 Resp 22 20 18 B/P (MAP) 120/58 (78) 137/78 (97) 122/91 (101) Pulse Ox 92 96 97 O2 Delivery Room Air Room Air Room Air Intake and Output 08/01/18 08/01/18 08/02/18 14:59 22:59 06:59 Intake Total 150 ml Output Total 510 ml 1310 ml Balance -360 ml -1310 ml SERG DONAHUE MD August 02, 2018 21:09
[2018-08-02 23:48] VITALS: BP 158/102
[2018-08-03] MEDS: IV NORMAL SALINE 1000ML BAG 1,000 ML IV SCH ×2 (00:04→08:41)
[2018-08-03 03:21] VITALS: BP 143/88
[2018-08-03] MEDS: LEVOTHYROXINE 125 MCG TABLET PO SCH (05:20)
[2018-08-03 07:00] VITALS: BP 132/97
[2018-08-03] MEDS: DOCUSATE SODIUM 100 MG CAPSULE. PO SCH (08:39)
[2018-08-03] MEDS: POLYETHYLENE GLYCOL 3350 17 GM PACKET. PO SCH ×2 (08:39→20:21)
[2018-08-03 08:52] LABS: BASO % 1 % (0-3); EOS # 0.2 x10^3/uL (0.0-0.7); EOS % 4 % (0-3); HEMATOCRIT 39.3 % (39.0-53.0); LYMPH # 1.1 x10^3/uL (1.0-4.8); LYMPH % 26 % (24-48); MEAN CORPUSCULAR HEMOGLOBIN 32 pg (25-35); MEAN CORPUSCULAR HGB CONC 33 g/dL (31-37); MEAN CORPUSCULAR VOLUME 97 fL (79-100); MONO # 0.3 x10^3/uL (0.0-1.1); MONO % 7 % (0-9); NEUT # 2.6 x10^3uL (1.8-7.7); NEUT % 62 % (31-73); PLATELET COUNT 218 x10^3/uL (140-400); RED BLOOD COUNT 4.04 x10^6/uL (4.30-5.70); RED CELL DISTRIBUTION WIDTH 13.9 % (11.5-14.5); WHITE BLOOD COUNT 4.2 x10^3/uL (4.0-11.0)
--- NOTE | 2018-08-03 09:21 | PDOC ---
Subjective: Subjective: Says he stooled a lot yesterday and feels better. I commented that his abdomen did not look different and he said that's how it always looks. Objective: Objective: Reviewed w/ RN - received report that has been stooling. Also pulled his IV out but eating and drinking very well. Reviewed chart - refused suppository, has not received Relistor. Vital Signs: Vital Signs Date Time Temp Pulse Resp B/P (MAP) Pulse Ox O2 Delivery O2 Flow Rate FiO2 08/03/18 07:00 97.5 68 20 132/97 (109) 97 Room Air 97.5 Labs: Laboratory Tests Test 08/03/18 08:15 White Blood Count 4.2 x10^3/uL Red Blood Count 4.04 x10^6/uL Hemoglobin 13.0 g/dL Hematocrit 39.3 % Mean Corpuscular Volume 97 fL Mean Corpuscular Hemoglobin 32 pg Mean Corpuscular Hemoglobin Concent 33 g/dL Red Cell Distribution Width 13.9 % Platelet Count 218 x10^3/uL Neutrophils (%) (Auto) 62 % Lymphocytes (%) (Auto) 26 % Monocytes (%) (Auto) 7 % Eosinophils (%) (Auto) 4 % Basophils (%) (Auto) 1 % Neutrophils # (Auto) 2.6 x10^3uL Lymphocytes # (Auto) 1.1 x10^3/uL Monocytes # (Auto) 0.3 x10^3/uL Eosinophils # (Auto) 0.2 x10^3/uL Basophils # (Auto) 0.0 x10^3/uL PE: GEN: NAD, eating breakfast LUNGS: CTAB HEART: RRR ABD: round/tight, distended, BS+, non-tender NEURO/PSYCH: A & O 3 A/P: Abd distention, constipation Hypothyroidism -- Abdomen without significant improvement, will review w/ Dr. Taylor. YOSELIN PRAKASH August 03, 2018 09:21
[2018-08-03 09:41] LABS: ALBUMIN 3.5 g/dL (3.4-5.0); ALBUMIN/GLOBULIN RATIO 0.9 (1.0-1.7); CALCIUM 8.1 mg/dL (8.5-10.1); CREATININE 1.3 mg/dL (0.7-1.3); GFR 63.3; POTASSIUM 3.3 mmol/L (3.5-5.1); TOTAL BILIRUBIN 0.8 mg/dL (0.2-1.0); TOTAL PROTEIN 7.6 g/dL (6.4-8.2)
--- NOTE | 2018-08-03 10:28 | PDOC ---
SUBJECTIVE ROS Stable OBJECTIVE Vital Signs Vital Signs Date Time Temp Pulse Resp B/P (MAP) Pulse Ox O2 Delivery O2 Flow Rate FiO2 08/03/18 07:00 97.5 68 20 132/97 (109) 97 Room Air 97.5 I & 0 Intake and Output 08/03/18 07:00 Intake Total 2470 ml Output Total 1350 ml Balance 1120 ml Intake Oral 2230 ml Tube Feeding 240 ml Output Urine Total 1350 ml # Bowel Movements 11 PHYSICAL EXAM Physical Exam General: NAD HEENT: OM moist Lungs: Clear to auscultation Abdomen: Obese , NT Extremities: No edema Skin: No rashes, No significant lesion Neuro: Grossly normal DIAGNOSIS/ASSESSMENT Assessment & Plan TIM- pre-renal, Poor PO intake UA unremarkable CT bilat cysts both kidneys. These measure 5 mm to 4 cm in size. Strict I/O, Monitor for LION, Recd Iv Contrast with CT on 07/31 Hyponatremia- Restrict fluid intake to 1500 ml 2/2 to Poor PO intake, Hypothyroidism Synthroid started Hypothyroidism on Synthroid now Abdominal pain- Constipation GI following COMMENT/RELEVANT DATA Meds Current Medications Medications (Trade) Dose Ordered Sig/Steve Start Time Stop Time Status Last Admin Dose Admin Acetaminophen (Tylenol) 650 mg PRN Q4HRS PRN 07/31/18 18:00 08/01/18 17:59 DC Bisacodyl (Dulcolax Supp) 10 mg 1X ONCE 08/02/18 16:30 08/02/18 16:31 DC Dicyclomine HCl (Bentyl) 10 mg PRN Q6HRS PRN 08/01/18 11:45 Docusate Sodium (Colace) 100 mg PRN DAILY PRN 07/31/18 20:45 Info (CONTRAST GIVEN -- Rx MONITORING) 1 each PRN DAILY PRN 07/31/18 16:30 08/02/18 16:29 DC Iohexol (Omnipaque 300 Mg/ml) 60 ml 1X ONCE 07/31/18 16:30 07/31/18 16:31 DC 07/31/18 16:37 60 ML Levothyroxine Sodium (Synthroid) 125 mcg DAILY06 08/02/18 15:30 08/03/18 05:20 125 MCG Magnesium Citrate (Citroma) 296 ml 1X ONCE 08/01/18 11:15 08/01/18 11:16 DC 08/01/18 12:37 296 ML Methylnaltrexone [place] (Relistor) 12 mg PRN Q48HR PRN 08/01/18 11:45 Morphine Sulfate (Morphine Sulfate) 2 mg PRN Q2HR PRN 07/31/18 18:00 08/01/18 11:50 DC Ondansetron HCl (Zofran) 4 mg PRN Q8HRS PRN 07/31/18 18:00 08/01/18 17:59 DC Polyethylene Glycol (miraLAX PACKET) 17 gm BID 07/31/18 21:00 08/03/18 08:39 17 GM Sodium Monofluorophosphate (Fleet Adult) 133 ml 1X ONCE 08/01/18 17:30 08/01/18 17:31 DC 08/01/18 18:06 133 ML Sodium Chloride 1,000 ml @ 100 mls/hr Q10H 07/31/18 20:45 08/03/18 09:43 DC 08/03/18 00:04 100 MLS/HR Sodium Cl/Sod Bicarb/Potass Cl/ PEG (Golytely) 4,000 ml 1X ONCE 08/02/18 09:00 08/02/18 09:01 DC 08/02/18 09:19 4,000 ML Lab Laboratory Tests Test 08/03/18 08:15 White Blood Count 4.2 x10^3/uL (4.0-11.0) Red Blood Count 4.04 x10^6/uL (4.30-5.70) Hemoglobin 13.0 g/dL (13.0-17.5) Hematocrit 39.3 % (39.0-53.0) Mean Corpuscular Volume 97 fL (79-100) Mean Corpuscular Hemoglobin 32 pg (25-35) Mean Corpuscular Hemoglobin Concent 33 g/dL (31-37) Red Cell Distribution Width 13.9 % (11.5-14.5) Platelet Count 218 x10^3/uL (140-400) Neutrophils (%) (Auto) 62 % (31-73) Lymphocytes (%) (Auto) 26 % (24-48) Monocytes (%) (Auto) 7 % (0-9) Eosinophils (%) (Auto) 4 % (0-3) Basophils (%) (Auto) 1 % (0-3) Neutrophils # (Auto) 2.6 x10^3uL (1.8-7.7) Lymphocytes # (Auto) 1.1 x10^3/uL (1.0-4.8) Monocytes # (Auto) 0.3 x10^3/uL (0.0-1.1) Eosinophils # (Auto) 0.2 x10^3/uL (0.0-0.7) Basophils # (Auto) 0.0 x10^3/uL (0.0-0.2) Sodium Level 130 mmol/L (136-145) Potassium Level 3.3 mmol/L (3.5-5.1) Chloride Level 92 mmol/L (98-107) Carbon Dioxide Level 27 mmol/L (21-32) Anion Gap 11 (6-14) Blood Urea Nitrogen 10 mg/dL (8-26) Creatinine 1.3 mg/dL (0.7-1.3) Estimated GFR (Cockcroft-Gault) 63.3 BUN/Creatinine Ratio 8 (6-20) Glucose Level 101 mg/dL (70-99) Calcium Level 8.1 mg/dL (8.5-10.1) Total Bilirubin 0.8 mg/dL (0.2-1.0) Aspartate Amino Transf (AST/SGOT) 92 U/L (15-37) Alanine Aminotransferase (ALT/SGPT) 32 U/L (16-63) Alkaline Phosphatase 63 U/L (46-116) Creatine Kinase 2087 U/L (39-308) Total Protein 7.6 g/dL (6.4-8.2) Albumin 3.5 g/dL (3.4-5.0) Albumin/Globulin Ratio 0.9 (1.0-1.7) Results All relevant outside records, renal labs, imaging studies, telemetry/EKG's were reviewed. ROCK OSBORNE MD August 03, 2018 10:28
[2018-08-03] MEDS: SODIUM BICARBONATE VIAL 150 MEQ in IV STERILE WATER 1,000 ML IV SCH ×2 (10:57→18:28)
[2018-08-03] MEDS: POTASSIUM CHLORIDE 20 MEQ TABLET.ER. PO SCH ×2 (10:58→12:52)
[2018-08-03] MEDS ORDERED: MAGNESIUM SULFATE 1GM 100 ML IV ONE (11:00)
[2018-08-03] MEDS ORDERED: IPRATRPIUM/ALBUTEROL 0.5/2.5MG 3 ML NEBU. ONE (11:20)
[2018-08-03 11:29] VITALS: BP 139/94
--- NOTE | 2018-08-03 11:29 | EKG ---
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
[2018-08-03] MEDS ORDERED: ALBUTEROL SULFATE 2.5 MG/3 ML NEBU. NEB PRN (11:30)
--- NOTE | 2018-08-03 11:37 | RAD ---
KUB, 08/03/2018: HISTORY: Abdominal distention There is moderate gaseous distention of what appears to be predominantly large bowel. Similar findings were present on the CT study of 07/31/2018. No large collection of stool is visualized. 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
[2018-08-03] MEDS ORDERED: BISACODYL 10 MG SUPP.RECT. PR ONE (12:00)
--- NOTE | 2018-08-03 12:05 | NUR ---
RN responded to Rapid Response at 1115. Patient states he has chest pain on L, lower part of chest. States it "comes and goes" and he has had it for "three or four months". Patient's abdomen is very distended. KUB done this AM. Waiting for results. Repeat Trop ordered STAT and EKG done. Breathing treatments ordered. Patient tolerated well. Wheezing subsided post breathing treatment. RN called Jesusita PAPITO. Notified her of distended abdomen and patient's inability to take deep breaths. Order received to give PRN Relistor currently on patient's EMAR. RN administered SQ in L arm. Waiting for Trop results. Fe AKBAR stated she was going to call Dr. Johnson with results and consult cardiology if ordered. VS WNL. Patient states he feels "better" and chest pain is "going away".
--- NOTE | 2018-08-03 12:07 | NUR ---
Edson Jay called at 1110 as patient complaint of intermittent sharp chest pain, no radiation, rates 5/10 on pain and points to left chest area for pain. Patient states sometimes SOB, but audibly wheezing. BP 142/95 pulse 68, oxygen sat 96-97%. Stat EKG was ordered. Arcelia [employer]PECTING [employer]PERVISOR responded to RR, RT neb ordered, stat troponin and she talked with Jesusita CARRILLO APRN. Relistor given per her rec. EKG SR per Arcelia [employer]PECTING SUPERVISOR. Await troponin, leaving patient on telemtry pending troponin. Patient less wheezy and states breathing better after RT treatment. Patient verb. understanding POC, states pain improved and feeling better. Continue cares and monitor.
--- NOTE | 2018-08-03 12:20 | NUR ---
RR D/W Dr. Johnson and measures taken, see nursing communication. No further orders at present. Await troponin.
--- NOTE | 2018-08-03 13:02 | NUR ---
Troponin0.023, no further measures indicated. Patient resting quietly without further complaint of chest pain. Continue cares and monitor.
--- NOTE | 2018-08-03 14:56 | PDOC ---
PROGRESS NOTES Chief Complaint Chief Complaint Hypothyroidism Hyponatremia secondary to the above Abdominal distention secondary to constipation Acute renal failure secondary to prerenal azotemia Mild elevation of CPK Hyponatremia secondary to low effective circulatory volume Abdominal pain secondary to constipation Plan: KUB Continue synthroid Pain management Resume home medications Bicarbonate drip Further recommendations based on the clinical course History of Present Illness History of Present Illness Patient with no acute events reported overnight. Continues to be bloated explain the reason why he feels fatigued given his thyroid function test panel. Reassurances been provided I have changed the IV fluids given the CK levels which may be related to his hypothyroidism as well. Hopefully this will improve now that the patient is receiving supplementation Vitals Vitals Vital Signs Date Time Temp Pulse Resp B/P (MAP) Pulse Ox O2 Delivery O2 Flow Rate FiO2 08/03/18 11:29 98.0 57 20 139/94 (109) 97 Room Air 98.0 Physical Exam General: Alert, Cooperative, mild distress, Other (mod oriened 3/4) Abdomen: Normal bowel sounds, Soft (very distended, some tympany, round and full) Extremities: No cyanosis, No edema, Normal pulses Skin: No rashes, No significant lesion Labs LABS Laboratory Tests Test 08/03/18 08:15 08/03/18 11:56 White Blood Count 4.2 x10^3/uL (4.0-11.0) Red Blood Count 4.04 x10^6/uL (4.30-5.70) Hemoglobin 13.0 g/dL (13.0-17.5) Hematocrit 39.3 % (39.0-53.0) Mean Corpuscular Volume 97 fL (79-100) Mean Corpuscular Hemoglobin 32 pg (25-35) Mean Corpuscular Hemoglobin Concent 33 g/dL (31-37) Red Cell Distribution Width 13.9 % (11.5-14.5) Platelet Count 218 x10^3/uL (140-400) Neutrophils (%) (Auto) 62 % (31-73) Lymphocytes (%) (Auto) 26 % (24-48) Monocytes (%) (Auto) 7 % (0-9) Eosinophils (%) (Auto) 4 % (0-3) Basophils (%) (Auto) 1 % (0-3) Neutrophils # (Auto) 2.6 x10^3uL (1.8-7.7) Lymphocytes # (Auto) 1.1 x10^3/uL (1.0-4.8) Monocytes # (Auto) 0.3 x10^3/uL (0.0-1.1) Eosinophils # (Auto) 0.2 x10^3/uL (0.0-0.7) Basophils # (Auto) 0.0 x10^3/uL (0.0-0.2) Sodium Level 130 mmol/L (136-145) Potassium Level 3.3 mmol/L (3.5-5.1) Chloride Level 92 mmol/L (98-107) Carbon Dioxide Level 27 mmol/L (21-32) Anion Gap 11 (6-14) Blood Urea Nitrogen 10 mg/dL (8-26) Creatinine 1.3 mg/dL (0.7-1.3) Estimated GFR (Cockcroft-Gault) 63.3 BUN/Creatinine Ratio 8 (6-20) Glucose Level 101 mg/dL (70-99) Calcium Level 8.1 mg/dL (8.5-10.1) Total Bilirubin 0.8 mg/dL (0.2-1.0) Aspartate Amino Transf (AST/SGOT) 92 U/L (15-37) Alanine Aminotransferase (ALT/SGPT) 32 U/L (16-63) Alkaline Phosphatase 63 U/L (46-116) Creatine Kinase 2087 U/L (39-308) Total Protein 7.6 g/dL (6.4-8.2) Albumin 3.5 g/dL (3.4-5.0) Albumin/Globulin Ratio 0.9 (1.0-1.7) Cortisol AM Sample 16.0 ug/dL (4.3-22.4) Troponin I Quantitative 0.023 ng/mL (0.000-0.055) Assessment and Plan Assessmemt and Plan Problems Medical Problems: (1) Chronic abdominal pain Status: Acute (2) Constipation Status: Acute (3) Hyponatremia Status: Acute (4) Rhabdomyolysis Status: Acute Comment Review of Relevant I have reviewed the following items jersey (where applicable) has been applied. Labs Laboratory Tests Test 08/02/18 03:30 08/03/18 08:15 08/03/18 11:56 Sodium Level 132 mmol/L (136-145) 130 mmol/L (136-145) Potassium Level 3.9 mmol/L (3.5-5.1) 3.3 mmol/L (3.5-5.1) Chloride Level 97 mmol/L (98-107) 92 mmol/L (98-107) Carbon Dioxide Level 24 mmol/L (21-32) 27 mmol/L (21-32) Anion Gap 11 (6-14) 11 (6-14) Blood Urea Nitrogen 11 mg/dL (8-26) 10 mg/dL (8-26) Creatinine 1.4 mg/dL (0.7-1.3) 1.3 mg/dL (0.7-1.3) Estimated GFR (Cockcroft-Gault) 58.1 63.3 Glucose Level 109 mg/dL (70-99) 101 mg/dL (70-99) Calcium Level 8.6 mg/dL (8.5-10.1) 8.1 mg/dL (8.5-10.1) Creatine Kinase 1948 U/L (39-308) 2087 U/L (39-308) Troponin I Quantitative 0.026 ng/mL (0.000-0.055) 0.023 ng/mL (0.000-0.055) Free Thyroxine < 0.10 ng/dL (0.76-1.46) Free Triiodothyronine (T3) pg/mL < 0.50 pg/mL (2.18-3.98) Total Triiodothyronine <20 ng/dL (71-180) White Blood Count 4.2 x10^3/uL (4.0-11.0) Red Blood Count 4.04 x10^6/uL (4.30-5.70) Hemoglobin 13.0 g/dL (13.0-17.5) Hematocrit 39.3 % (39.0-53.0) Mean Corpuscular Volume 97 fL (79-100) Mean Corpuscular Hemoglobin 32 pg (25-35) Mean Corpuscular Hemoglobin Concent 33 g/dL (31-37) Red Cell Distribution Width 13.9 % (11.5-14.5) Platelet Count 218 x10^3/uL (140-400) Neutrophils (%) (Auto) 62 % (31-73) Lymphocytes (%) (Auto) 26 % (24-48) Monocytes (%) (Auto) 7 % (0-9) Eosinophils (%) (Auto) 4 % (0-3) Basophils (%) (Auto) 1 % (0-3) Neutrophils # (Auto) 2.6 x10^3uL (1.8-7.7) Lymphocytes # (Auto) 1.1 x10^3/uL (1.0-4.8) Monocytes # (Auto) 0.3 x10^3/uL (0.0-1.1) Eosinophils # (Auto) 0.2 x10^3/uL (0.0-0.7) Basophils # (Auto) 0.0 x10^3/uL (0.0-0.2) BUN/Creatinine Ratio 8 (6-20) Total Bilirubin 0.8 mg/dL (0.2-1.0) Aspartate Amino Transf (AST/SGOT) 92 U/L (15-37) Alanine Aminotransferase (ALT/SGPT) 32 U/L (16-63) Alkaline Phosphatase 63 U/L (46-116) Total Protein 7.6 g/dL (6.4-8.2) Albumin 3.5 g/dL (3.4-5.0) Albumin/Globulin Ratio 0.9 (1.0-1.7) Cortisol AM Sample 16.0 ug/dL (4.3-22.4) Laboratory Tests Test 08/03/18 08:15 08/03/18 11:56 White Blood Count 4.2 x10^3/uL (4.0-11.0) Red Blood Count 4.04 x10^6/uL (4.30-5.70) Hemoglobin 13.0 g/dL (13.0-17.5) Hematocrit 39.3 % (39.0-53.0) Mean Corpuscular Volume 97 fL (79-100) Mean Corpuscular Hemoglobin 32 pg (25-35) Mean Corpuscular Hemoglobin Concent 33 g/dL (31-37) Red Cell Distribution Width 13.9 % (11.5-14.5) Platelet Count 218 x10^3/uL (140-400) Neutrophils (%) (Auto) 62 % (31-73) Lymphocytes (%) (Auto) 26 % (24-48) Monocytes (%) (Auto) 7 % (0-9) Eosinophils (%) (Auto) 4 % (0-3) Basophils (%) (Auto) 1 % (0-3) Neutrophils # (Auto) 2.6 x10^3uL (1.8-7.7) Lymphocytes # (Auto) 1.1 x10^3/uL (1.0-4.8) Monocytes # (Auto) 0.3 x10^3/uL (0.0-1.1) Eosinophils # (Auto) 0.2 x10^3/uL (0.0-0.7) Basophils # (Auto) 0.0 x10^3/uL (0.0-0.2) Sodium Level 130 mmol/L (136-145) Potassium Level 3.3 mmol/L (3.5-5.1) Chloride Level 92 mmol/L (98-107) Carbon Dioxide Level 27 mmol/L (21-32) Anion Gap 11 (6-14) Blood Urea Nitrogen 10 mg/dL (8-26) Creatinine 1.3 mg/dL (0.7-1.3) Estimated GFR (Cockcroft-Gault) 63.3 BUN/Creatinine Ratio 8 (6-20) Glucose Level 101 mg/dL (70-99) Calcium Level 8.1 mg/dL (8.5-10.1) Total Bilirubin 0.8 mg/dL (0.2-1.0) Aspartate Amino Transf (AST/SGOT) 92 U/L (15-37) Alanine Aminotransferase (ALT/SGPT) 32 U/L (16-63) Alkaline Phosphatase 63 U/L (46-116) Creatine Kinase 2087 U/L (39-308) Total Protein 7.6 g/dL (6.4-8.2) Albumin 3.5 g/dL (3.4-5.0) Albumin/Globulin Ratio 0.9 (1.0-1.7) Cortisol AM Sample 16.0 ug/dL (4.3-22.4) Troponin I Quantitative 0.023 ng/mL (0.000-0.055) Medications Current Medications Morphine Sulfate (Morphine Sulfate) 2 mg PRN Q15MIN PRN IV/SQ PAIN GREATER THAN 3/10; Start 07/31/18 at 14:30; Stop 08/01/18 at 11:50; Status DC Iohexol (Omnipaque 300 Mg/ml) 60 ml 1X ONCE IV Last administered on 07/31/18at 16:37; Start 07/31/18 at 16:30; Stop 07/31/18 at 16:31; Status DC Info (CONTRAST GIVEN -- Rx MONITORING) 1 each PRN DAILY PRN MC SEE COMMENTS; Start 07/31/18 at 16:30; Stop 08/02/18 at 16:29; Status DC Sodium Chloride 1,000 ml @ 1,000 mls/hr 1X ONCE IV Last administered on 07/31/18at 17:04; Start 07/31/18 at 17:00; Stop 07/31/18 at 17:59; Status DC Sodium Chloride 1,000 ml @ 1,000 mls/hr 1X ONCE IV Last administered on 07/31/18at 17:58; Start 07/31/18 at 18:00; Stop 07/31/18 at 18:59; Status DC Sodium Chloride 1,000 ml @ 1,000 mls/hr 1X ONCE IV Last administered on 07/31/18at 17:58; Start 07/31/18 at 18:00; Stop 07/31/18 at 18:59; Status DC Ondansetron HCl (Zofran) 4 mg PRN Q8HRS PRN IV NAUSEA/VOMITING; Start 07/31/18 at 18:00; Stop 08/01/18 at 17:59; Status DC Morphine Sulfate (Morphine Sulfate) 2 mg PRN Q2HR PRN IV PAIN; Start 07/31/18 at 18:00; Stop 08/01/18 at 11:50; Status DC Acetaminophen (Tylenol) 650 mg PRN Q4HRS PRN PO FEVER; Start 07/31/18 at 18:00; Stop 08/01/18 at 17:59; Status DC Sodium Chloride 1,000 ml @ 125 mls/hr 1X ONCE IV Last administered on 07/31/18at 20:38; Start 07/31/18 at 18:00; Stop 08/01/18 at 01:59; Status DC Polyethylene Glycol (miraLAX PACKET) 17 gm BID PO Last administered on 08/03/18at 08:39; Start 07/31/18 at 21:00 Docusate Sodium (Colace) 100 mg DAILY PO Last administered on 08/03/18at 08:39; Start 08/01/18 at 09:00 Docusate Sodium (Colace) 100 mg PRN DAILY PRN PO CONSTIPATION; Start 07/31/18 at 20:45 Sodium Monofluorophosphate (Fleet Adult) 133 ml 1X ONCE [place] ; Start 07/31/18 at 20:45; Stop 07/31/18 at 20:46; Status DC Sodium Chloride 1,000 ml @ 100 mls/hr Q10H IV Last administered on 08/03/18at 00:04; Start 07/31/18 at 20:45; Stop 08/03/18 at 09:43; Status DC Magnesium Citrate (Citroma) 296 ml 1X ONCE PO Last administered on 08/01/18at 12:37; Start 08/01/18 at 11:15; Stop 08/01/18 at 11:16; Status DC Dicyclomine HCl (Bentyl) 10 mg PRN Q6HRS PRN PO abdominal pain; Start 08/01/18 at 11:45 Methylnaltrexone Cambria (Relistor) 12 mg PRN Q48HR PRN SQ CONSTIPATION Last administered on 08/03/18at 11:42; Start 08/01/18 at 11:45 Sodium Monofluorophosphate (Fleet Adult) 133 ml 1X ONCE WA Last administered on 08/01/18at 18:06; Start 08/01/18 at 17:30; Stop 08/01/18 at 17:31; Status DC Sodium Cl/Sod Bicarb/Potass Cl/ PEG (Golytely) 4,000 ml 1X ONCE PO Last administered on 08/02/18at 09:19; Start 08/02/18 at 09:00; Stop 08/02/18 at 09:01; Status DC Levothyroxine Sodium (Synthroid) 125 mcg DAILY06 PO Last administered on 08/03/18at 05:20; Start 08/02/18 at 15:30 Bisacodyl (Dulcolax Supp) 10 mg 1X ONCE [place] ; Start 08/02/18 at 16:30; Stop 08/02/18 at 16:31; Status DC Magnesium Sulfate/ Dextrose 100 ml @ 100 mls/hr 1X ONCE IV Last administered on 08/03/18at 10:57; Start 08/03/18 at 11:00; Stop 08/03/18 at 11:59; Status DC Potassium Chloride (Klor-Con) 40 meq Q2H PO Last administered on 08/03/18at 12:52; Start 08/03/18 at 11:00; Stop 08/03/18 at 13:01; Status DC Sodium Bicarbonate 150 meq/Sterile Water 1,150 ml @ 150 mls/hr Q7H40M IV Last administered on 08/03/18at 10:57; Start 08/03/18 at 11:00; Stop 08/04/18 at 00:19 Albuterol Sulfate (Ventolin Neb Soln) 2.5 mg PRN Q4HRS PRN NEB SHORTNESS OF BR EATH; Start 08/03/18 at 11:30 Albuterol/ Ipratropium (Duoneb) 3 ml STK-MED ONCE .ROUTE ; Start 08/03/18 at 11:20; Stop 08/03/18 at 11:21; Status DC Bisacodyl (Dulcolax Supp) 10 mg 1X ONCE WA Last administered on 08/03/18at 12:52; Start 08/03/18 at 12:00; Stop 08/03/18 at 12:01; Status DC Vitals/I & O Vital Sign - Last 24 Hours 08/02/18 08/02/18 08/02/18 08/03/18 19:42 20:00 23:48 03:21 Temp 97.5 97.6 98.1 97.5 97.6 98.1 Pulse 79 75 72 Resp 18 18 20 B/P (MAP) 122/91 (101) 158/102 (120) 143/88 (106) Pulse Ox 97 96 100 O2 Delivery Room Air Room Air Room Air Room Air 08/03/18 08/03/18 08/03/18 07:00 11:25 11:29 Temp 97.5 98.0 97.5 98.0 Pulse 68 57 Resp 20 20 B/P (MAP) 132/97 (109) 139/94 (109) Pulse Ox 97 97 O2 Delivery Room Air Room Air Room Air Intake and Output 08/02/18 08/02/18 08/03/18 15:00 23:00 07:00 Intake Total 1240 ml 600 ml 630 ml Output Total 300 ml 400 ml 650 ml Balance 940 ml 200 ml -20 ml SERG DONAHUE MD August 03, 2018 14:56
--- NOTE | 2018-08-03 15:21 | NUR ---
SW following pt. PT/OT recommends SNU. Spoke with pt at bedside and pt states he wants to go home. [facility]
[2018-08-03 15:56] VITALS: BP 145/105
--- NOTE | 2018-08-03 16:00 | NUR ---
Patient had large liquid brown stool results after Relistor and dulcolax suppository, approximately 1200 cc.
--- NOTE | 2018-08-03 16:09 | NUR ---
Dr. Johnson notified of patient KUB results, troponin, and large liquid stool results. No further orders at this time.
--- NOTE | 2018-08-03 18:34 | PDOC4 ---
PROCEDURE Procedure EGD/attempted banding Indication: hematemesis. Meds: per anesthesia. Findings: E--Intense erythema throughout upper 2/3's. 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 Attempted to band, but unable to get purchase with band due to the fibrosis. Dislodged clot and did not bleed, so further treatment abandoned. G--Normal. No gastric varices seen. D--Normal to second portion. Christiano. well. 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 Severe esophagitis, some from repeated emesis. REC: IVF's, aggressive anti-emetics. If rebleeds, octreotide. Continue IV PPI gtt. Could try ice chips. Follow clinically, hemoglobins. Thanks. MINOO RUTH MD August 03, 2018 18:34
[2018-08-03 19:26] VITALS: BP 152/76
--- NOTE | 2018-08-04 00:11 | NUR ---
patient arrived from [address], room 502 at 2345. His belongings were left in the room with the patient.
[2018-08-04 03:16] VITALS: BP 130/76
[2018-08-04 05:29] LABS: BASO % 1 % (0-3); EOS # 0.2 x10^3/uL (0.0-0.7); EOS % 5 % (0-3); HEMATOCRIT 36.5 % (39.0-53.0); HEMOGLOBIN 12.3 g/dL (13.0-17.5); LYMPH # 1.1 x10^3/uL (1.0-4.8); LYMPH % 30 % (24-48); MEAN CORPUSCULAR HEMOGLOBIN 32 pg (25-35); MEAN CORPUSCULAR HGB CONC 34 g/dL (31-37); MEAN CORPUSCULAR VOLUME 96 fL (79-100); MONO # 0.3 x10^3/uL (0.0-1.1); MONO % 8 % (0-9); NEUT # 2.1 x10^3uL (1.8-7.7); NEUT % 57 % (31-73); PLATELET COUNT 214 x10^3/uL (140-400); WHITE BLOOD COUNT 3.8 x10^3/uL (4.0-11.0)
[2018-08-04 06:28] LABS: CALCIUM 8.2 mg/dL (8.5-10.1); CREATININE 1.3 mg/dL (0.7-1.3); GFR 63.3; MAGNESIUM 2.3 mg/dL (1.8-2.4); POTASSIUM 3.8 mmol/L (3.5-5.1)
[2018-08-04] MEDS: LEVOTHYROXINE 125 MCG TABLET PO SCH (06:42)
[2018-08-04 07:00] VITALS: BP 145/72
--- NOTE | 2018-08-04 08:45 | PDOC ---
PROGRESS NOTES Chief Complaint Chief Complaint Hypothyroidism Hyponatremia secondary to the above Abdominal distention secondary to constipation Acute renal failure secondary to prerenal azotemia Rhabdomyolysis elevation of CPK Hyponatremia secondary to low effective circulatory volume Abdominal pain secondary to constipation Plan: KUB Continue Synthroid Pain management Resume home medications Bicarbonate drip Further recommendations based on the clinical course History of Present Illness History of Present Illness Patient with no acute events reported overnight. Continues to be bloated explain the reason why he feels fatigued given his thyroid function test panel. Reassurances been provided I have changed the IV fluids given the CK levels which may be related to his hypothyroidism as well. Hopefully this will improve now that the patient is receiving supplementation. He feels less bloated, had 2 large BM this morning. Flatulence. CK down a bit this morning. Mag up to 2.3 Vitals Vitals Vital Signs Date Time Temp Pulse Resp B/P (MAP) Pulse Ox O2 Delivery O2 Flow Rate FiO2 08/04/18 03:16 97.3 68 20 130/76 (94) 94 Nasal Cannula 97.3 Physical Exam General: Alert, Cooperative, mild distress, Other (mod oriened 3/4) Abdomen: Normal bowel sounds, Soft (very distended, some tympany, round and full) Extremities: No cyanosis, No edema, Normal pulses Skin: No rashes, No significant lesion Labs LABS Laboratory Tests Test 08/03/18 11:56 08/03/18 15:45 08/04/18 04:55 Troponin I Quantitative 0.023 ng/mL (0.000-0.055) Cortisol PM Sample 20.5 ug/dL (3.1-16.7) White Blood Count 3.8 x10^3/uL (4.0-11.0) Red Blood Count 3.80 x10^6/uL (4.30-5.70) Hemoglobin 12.3 g/dL (13.0-17.5) Hematocrit 36.5 % (39.0-53.0) Mean Corpuscular Volume 96 fL (79-100) Mean Corpuscular Hemoglobin 32 pg (25-35) Mean Corpuscular Hemoglobin Concent 34 g/dL (31-37) Red Cell Distribution Width 14.0 % (11.5-14.5) Platelet Count 214 x10^3/uL (140-400) Neutrophils (%) (Auto) 57 % (31-73) Lymphocytes (%) (Auto) 30 % (24-48) Monocytes (%) (Auto) 8 % (0-9) Eosinophils (%) (Auto) 5 % (0-3) Basophils (%) (Auto) 1 % (0-3) Neutrophils # (Auto) 2.1 x10^3uL (1.8-7.7) Lymphocytes # (Auto) 1.1 x10^3/uL (1.0-4.8) Monocytes # (Auto) 0.3 x10^3/uL (0.0-1.1) Eosinophils # (Auto) 0.2 x10^3/uL (0.0-0.7) Basophils # (Auto) 0.0 x10^3/uL (0.0-0.2) Sodium Level 132 mmol/L (136-145) Potassium Level 3.8 mmol/L (3.5-5.1) Chloride Level 94 mmol/L (98-107) Carbon Dioxide Level 29 mmol/L (21-32) Anion Gap 9 (6-14) Blood Urea Nitrogen 9 mg/dL (8-26) Creatinine 1.3 mg/dL (0.7-1.3) Estimated GFR (Cockcroft-Gault) 63.3 Glucose Level 101 mg/dL (70-99) Calcium Level 8.2 mg/dL (8.5-10.1) Magnesium Level 2.3 mg/dL (1.8-2.4) Creatine Kinase 1891 U/L (39-308) Assessment and Plan Assessmemt and Plan Problems Medical Problems: (1) Chronic abdominal pain Status: Acute (2) Constipation Status: Acute (3) Hyponatremia Status: Acute (4) Rhabdomyolysis Status: Acute Comment Review of Relevant I have reviewed the following items jersey (where applicable) has been applied. Labs Laboratory Tests Test 08/03/18 08:15 08/03/18 11:56 08/03/18 15:45 08/04/18 04:55 White Blood Count 4.2 x10^3/uL (4.0-11.0) 3.8 x10^3/uL (4.0-11.0) Red Blood Count 4.04 x10^6/uL (4.30-5.70) 3.80 x10^6/uL (4.30-5.70) Hemoglobin 13.0 g/dL (13.0-17.5) 12.3 g/dL (13.0-17.5) Hematocrit 39.3 % (39.0-53.0) 36.5 % (39.0-53.0) Mean Corpuscular Volume 97 fL (79-100) 96 fL (79-100) Mean Corpuscular Hemoglobin 32 pg (25-35) 32 pg (25-35) Mean Corpuscular Hemoglobin Concent 33 g/dL (31-37) 34 g/dL (31-37) Red Cell Distribution Width 13.9 % (11.5-14.5) 14.0 % (11.5-14.5) Platelet Count 218 x10^3/uL (140-400) 214 x10^3/uL (140-400) Neutrophils (%) (Auto) 62 % (31-73) 57 % (31-73) Lymphocytes (%) (Auto) 26 % (24-48) 30 % (24-48) Monocytes (%) (Auto) 7 % (0-9) 8 % (0-9) Eosinophils (%) (Auto) 4 % (0-3) 5 % (0-3) Basophils (%) (Auto) 1 % (0-3) 1 % (0-3) Neutrophils # (Auto) 2.6 x10^3uL (1.8-7.7) 2.1 x10^3uL (1.8-7.7) Lymphocytes # (Auto) 1.1 x10^3/uL (1.0-4.8) 1.1 x10^3/uL (1.0-4.8) Monocytes # (Auto) 0.3 x10^3/uL (0.0-1.1) 0.3 x10^3/uL (0.0-1.1) Eosinophils # (Auto) 0.2 x10^3/uL (0.0-0.7) 0.2 x10^3/uL (0.0-0.7) Basophils # (Auto) 0.0 x10^3/uL (0.0-0.2) 0.0 x10^3/uL (0.0-0.2) Sodium Level 130 mmol/L (136-145) 132 mmol/L (136-145) Potassium Level 3.3 mmol/L (3.5-5.1) 3.8 mmol/L (3.5-5.1) Chloride Level 92 mmol/L (98-107) 94 mmol/L (98-107) Carbon Dioxide Level 27 mmol/L (21-32) 29 mmol/L (21-32) Anion Gap 11 (6-14) 9 (6-14) Blood Urea Nitrogen 10 mg/dL (8-26) 9 mg/dL (8-26) Creatinine 1.3 mg/dL (0.7-1.3) 1.3 mg/dL (0.7-1.3) Estimated GFR (Cockcroft-Gault) 63.3 63.3 BUN/Creatinine Ratio 8 (6-20) Glucose Level 101 mg/dL (70-99) 101 mg/dL (70-99) Calcium Level 8.1 mg/dL (8.5-10.1) 8.2 mg/dL (8.5-10.1) Total Bilirubin 0.8 mg/dL (0.2-1.0) Aspartate Amino Transf (AST/SGOT) 92 U/L (15-37) Alanine Aminotransferase (ALT/SGPT) 32 U/L (16-63) Alkaline Phosphatase 63 U/L (46-116) Creatine Kinase 2087 U/L (39-308) 1891 U/L (39-308) Total Protein 7.6 g/dL (6.4-8.2) Albumin 3.5 g/dL (3.4-5.0) Albumin/Globulin Ratio 0.9 (1.0-1.7) Cortisol AM Sample 16.0 ug/dL (4.3-22.4) Troponin I Quantitative 0.023 ng/mL (0.000-0.055) Cortisol PM Sample 20.5 ug/dL (3.1-16.7) Magnesium Level 2.3 mg/dL (1.8-2.4) Laboratory Tests Test 08/03/18 11:56 08/03/18 15:45 08/04/18 04:55 Troponin I Quantitative 0.023 ng/mL (0.000-0.055) Cortisol PM Sample 20.5 ug/dL (3.1-16.7) White Blood Count 3.8 x10^3/uL (4.0-11.0) Red Blood Count 3.80 x10^6/uL (4.30-5.70) Hemoglobin 12.3 g/dL (13.0-17.5) Hematocrit 36.5 % (39.0-53.0) Mean Corpuscular Volume 96 fL (79-100) Mean Corpuscular Hemoglobin 32 pg (25-35) Mean Corpuscular Hemoglobin Concent 34 g/dL (31-37) Red Cell Distribution Width 14.0 % (11.5-14.5) Platelet Count 214 x10^3/uL (140-400) Neutrophils (%) (Auto) 57 % (31-73) Lymphocytes (%) (Auto) 30 % (24-48) Monocytes (%) (Auto) 8 % (0-9) Eosinophils (%) (Auto) 5 % (0-3) Basophils (%) (Auto) 1 % (0-3) Neutrophils # (Auto) 2.1 x10^3uL (1.8-7.7) Lymphocytes # (Auto) 1.1 x10^3/uL (1.0-4.8) Monocytes # (Auto) 0.3 x10^3/uL (0.0-1.1) Eosinophils # (Auto) 0.2 x10^3/uL (0.0-0.7) Basophils # (Auto) 0.0 x10^3/uL (0.0-0.2) Sodium Level 132 mmol/L (136-145) Potassium Level 3.8 mmol/L (3.5-5.1) Chloride Level 94 mmol/L (98-107) Carbon Dioxide Level 29 mmol/L (21-32) Anion Gap 9 (6-14) Blood Urea Nitrogen 9 mg/dL (8-26) Creatinine 1.3 mg/dL (0.7-1.3) Estimated GFR (Cockcroft-Gault) 63.3 Glucose Level 101 mg/dL (70-99) Calcium Level 8.2 mg/dL (8.5-10.1) Magnesium Level 2.3 mg/dL (1.8-2.4) Creatine Kinase 1891 U/L (39-308) Medications Current Medications Morphine Sulfate (Morphine Sulfate) 2 mg PRN Q15MIN PRN IV/SQ PAIN GREATER THAN 3/10; Start 07/31/18 at 14:30; Stop 08/01/18 at 11:50; Status DC Iohexol (Omnipaque 300 Mg/ml) 60 ml 1X ONCE IV Last administered on 07/31/18at 16:37; Start 07/31/18 at 16:30; Stop 07/31/18 at 16:31; Status DC Info (CONTRAST GIVEN -- Rx MONITORING) 1 each PRN DAILY PRN MC SEE COMMENTS; S tart 07/31/18 at 16:30; Stop 08/02/18 at 16:29; Status DC Sodium Chloride 1,000 ml @ 1,000 mls/hr 1X ONCE IV Last administered on 07/31/18at 17:04; Start 07/31/18 at 17:00; Stop 07/31/18 at 17:59; Status DC Sodium Chloride 1,000 ml @ 1,000 mls/hr 1X ONCE IV Last administered on 07/31/18at 17:58; Start 07/31/18 at 18:00; Stop 07/31/18 at 18:59; Status DC Sodium Chloride 1,000 ml @ 1,000 mls/hr 1X ONCE IV Last administered on 07/31/18at 17:58; Start 07/31/18 at 18:00; Stop 07/31/18 at 18:59; Status DC Ondansetron HCl (Zofran) 4 mg PRN Q8HRS PRN IV NAUSEA/VOMITING; Start 07/31/18 at 18:00; Stop 08/01/18 at 17:59; Status DC Morphine Sulfate (Morphine Sulfate) 2 mg PRN Q2HR PRN IV PAIN; Start 07/31/18 at 18:00; Stop 08/01/18 at 11:50; Status DC Acetaminophen (Tylenol) 650 mg PRN Q4HRS PRN PO FEVER; Start 07/31/18 at 18:00; Stop 08/01/18 at 17:59; Status DC Sodium Chloride 1,000 ml @ 125 mls/hr 1X ONCE IV Last administered on 07/31/18at 20:38; Start 07/31/18 at 18:00; Stop 08/01/18 at 01:59; Status DC Polyethylene Glycol (miraLAX PACKET) 17 gm BID PO Last administered on 08/03/18at 20:21; Start 07/31/18 at 21:00 Docusate Sodium (Colace) 100 mg DAILY PO Last administered on 08/03/18at 08:39; Start 08/01/18 at 09:00 Docusate Sodium (Colace) 100 mg PRN DAILY PRN PO CONSTIPATION; Start 07/31/18 at 20:45 Sodium Monofluorophosphate (Fleet Adult) 133 ml 1X ONCE OK ; Start 07/31/18 at 20:45; Stop 07/31/18 at 20:46; Status DC Sodium Chloride 1,000 ml @ 100 mls/hr Q10H IV Last administered on 08/03/18at 0 0:04; Start 07/31/18 at 20:45; Stop 08/03/18 at 09:43; Status DC Magnesium Citrate (Citroma) 296 ml 1X ONCE PO Last administered on 08/01/18at 12:37; Start 08/01/18 at 11:15; Stop 08/01/18 at 11:16; Status DC Dicyclomine HCl (Bentyl) 10 mg PRN Q6HRS PRN PO abdominal pain; Start 08/01/18 at 11:45 Methylnaltrexone [place] (Relistor) 12 mg PRN Q48HR PRN SQ CONSTIPATION Last administered on 08/03/18at 11:42; Start 08/01/18 at 11:45 Sodium Monofluorophosphate (Fleet Adult) 133 ml 1X ONCE OK Last administered on 08/01/18at 18:06; Start 08/01/18 at 17:30; Stop 08/01/18 at 17:31; Status DC Sodium Cl/Sod Bicarb/Potass Cl/ PEG (Golytely) 4,000 ml 1X ONCE PO Last administered on 08/02/18at 09:19; Start 08/02/18 at 09:00; Stop 08/02/18 at 09:01; Status DC Levothyroxine Sodium (Synthroid) 125 mcg DAILY06 PO Last administered on 08/04/18at 06:42; Start 08/02/18 at 15:30 Bisacodyl (Dulcolax Supp) 10 mg 1X ONCE OK ; Start 08/02/18 at 16:30; Stop 08/02/18 at 16:31; Status DC Magnesium Sulfate/ Dextrose 100 ml @ 100 mls/hr 1X ONCE IV Last administered on 08/03/18at 10:57; Start 08/03/18 at 11:00; Stop 08/03/18 at 11:59; Status DC Potassium Chloride (Klor-Con) 40 meq Q2H PO Last administered on 08/03/18at 12:52; Start 08/03/18 at 11:00; Stop 08/03/18 at 13:01; Status DC Sodium Bicarbonate 150 meq/Sterile Water 1,150 ml @ 150 mls/hr Q7H40M IV Last administered on 08/03/18at 18:28; Start 08/03/18 at 11:00; Stop 08/04/18 at 00:19; Status DC Albuterol Sulfate (Ventolin Neb Soln) 2.5 mg PRN Q4HRS PRN NEB SHORTNESS OF BREATH Last administered on 08/03/18at 15:54; Start 08/03/18 at 11:30 Albuterol/ Ipratropium (Duoneb) 3 ml STK-MED ONCE .ROUTE ; Start 08/03/18 at 11:20; Stop 08/03/18 at 11:21; Status DC Bisacodyl (Dulcolax Supp) 10 mg 1X ONCE OK Last administered on 08/03/18at 12:52; Start 08/03/18 at 12:00; Stop 08/03/18 at 12:01; Status DC Vitals/I & O Vital Sign - Last 24 Hours 08/03/18 08/03/18 08/03/18 08/03/18 11:25 11:29 15:56 15:56 Temp 98.0 97.7 98.0 97.7 Pulse 57 70 Resp 20 22 B/P (MAP) 139/94 (109) 145/105 (118) Pulse Ox 97 96 94 O2 Delivery Room Air Room Air Room Air Room Air 08/03/18 08/03/18 08/04/18 19:26 20:00 03:16 Temp 98.2 97.3 98.2 97.3 Pulse 73 68 Resp 18 20 B/P (MAP) 152/76 (101) 130/76 (94) Pulse Ox 97 94 O2 Delivery Room Air Room Air Nasal Cannula Intake and Output 08/03/18 08/03/18 08/04/18 15:00 23:00 07:00 Intake Total 500 ml 1790 ml 1300 ml Output Total 1120 ml 850 ml 500 ml Balance -620 ml 940 ml 800 ml GUS PEREZ MD August 04, 2018 08:45
[2018-08-04] MEDS: POLYETHYLENE GLYCOL 3350 17 GM PACKET. PO SCH ×2 (09:00→21:03)
[2018-08-04 11:00] VITALS: BP 135/91
[2018-08-04] MEDS ORDERED: SENNOSIDES/DOCUSATE 8.6/50MG TABLET. PO PRN (11:00)
[2018-08-04] MEDS ORDERED: SIMETHICONE 80 MG TAB.CHEW PO PRN (11:00)
[2018-08-04] MEDS ORDERED: MAGNESIUM HYDROXIDE 2,400 MG/30 ML ORAL.SUSP. PO PRN (11:00)
[2018-08-04] MEDS: PSYLLIUM HUSK (SUGAR FREE) 1 PKT PACKET PO SCH (12:59)
[2018-08-04] MEDS: DOCUSATE SODIUM 100 MG CAPSULE. PO SCH (12:59)
--- NOTE | 2018-08-04 13:02 | NUR ---
AM meds passed late due to emergency with another pt. Did not give Miralax as Metamucil was due.
--- NOTE | 2018-08-04 13:16 | PDOC ---
G I PROGRESS NOTE Subjective Few complaints. Stooling. Physical Exam Lungs clear. RRR Abdomen protuberant, firm, tympanitic as before, but not tender. Review of Relevant I have reviewed the following items jersey (where applicable) has been applied. Labs Laboratory Tests Test 08/03/18 08:15 08/03/18 11:56 08/03/18 15:45 08/04/18 04:55 White Blood Count 4.2 x10^3/uL (4.0-11.0) 3.8 x10^3/uL (4.0-11.0) Red Blood Count 4.04 x10^6/uL (4.30-5.70) 3.80 x10^6/uL (4.30-5.70) Hemoglobin 13.0 g/dL (13.0-17.5) 12.3 g/dL (13.0-17.5) Hematocrit 39.3 % (39.0-53.0) 36.5 % (39.0-53.0) Mean Corpuscular Volume 97 fL (79-100) 96 fL (79-100) Mean Corpuscular Hemoglobin 32 pg (25-35) 32 pg (25-35) Mean Corpuscular Hemoglobin Concent 33 g/dL (31-37) 34 g/dL (31-37) Red Cell Distribution Width 13.9 % (11.5-14.5) 14.0 % (11.5-14.5) Platelet Count 218 x10^3/uL (140-400) 214 x10^3/uL (140-400) Neutrophils (%) (Auto) 62 % (31-73) 57 % (31-73) Lymphocytes (%) (Auto) 26 % (24-48) 30 % (24-48) Monocytes (%) (Auto) 7 % (0-9) 8 % (0-9) Eosinophils (%) (Auto) 4 % (0-3) 5 % (0-3) Basophils (%) (Auto) 1 % (0-3) 1 % (0-3) Neutrophils # (Auto) 2.6 x10^3uL (1.8-7.7) 2.1 x10^3uL (1.8-7.7) Lymphocytes # (Auto) 1.1 x10^3/uL (1.0-4.8) 1.1 x10^3/uL (1.0-4.8) Monocytes # (Auto) 0.3 x10^3/uL (0.0-1.1) 0.3 x10^3/uL (0.0-1.1) Eosinophils # (Auto) 0.2 x10^3/uL (0.0-0.7) 0.2 x10^3/uL (0.0-0.7) Basophils # (Auto) 0.0 x10^3/uL (0.0-0.2) 0.0 x10^3/uL (0.0-0.2) Sodium Level 130 mmol/L (136-145) 132 mmol/L (136-145) Potassium Level 3.3 mmol/L (3.5-5.1) 3.8 mmol/L (3.5-5.1) Chloride Level 92 mmol/L (98-107) 94 mmol/L (98-107) Carbon Dioxide Level 27 mmol/L (21-32) 29 mmol/L (21-32) Anion Gap 11 (6-14) 9 (6-14) Blood Urea Nitrogen 10 mg/dL (8-26) 9 mg/dL (8-26) Creatinine 1.3 mg/dL (0.7-1.3) 1.3 mg/dL (0.7-1.3) Estimated GFR (Cockcroft-Gault) 63.3 63.3 BUN/Creatinine Ratio 8 (6-20) Glucose Level 101 mg/dL (70-99) 101 mg/dL (70-99) Calcium Level 8.1 mg/dL (8.5-10.1) 8.2 mg/dL (8.5-10.1) Total Bilirubin 0.8 mg/dL (0.2-1.0) Aspartate Amino Transf (AST/SGOT) 92 U/L (15-37) Alanine Aminotransferase (ALT/SGPT) 32 U/L (16-63) Alkaline Phosphatase 63 U/L (46-116) Creatine Kinase 2087 U/L (39-308) 1891 U/L (39-308) Total Protein 7.6 g/dL (6.4-8.2) Albumin 3.5 g/dL (3.4-5.0) Albumin/Globulin Ratio 0.9 (1.0-1.7) Cortisol AM Sample 16.0 ug/dL (4.3-22.4) Troponin I Quantitative 0.023 ng/mL (0.000-0.055) Cortisol PM Sample 20.5 ug/dL (3.1-16.7) Magnesium Level 2.3 mg/dL (1.8-2.4) Laboratory Tests Test 08/03/18 15:45 08/04/18 04:55 Cortisol PM Sample 20.5 ug/dL (3.1-16.7) White Blood Count 3.8 x10^3/uL (4.0-11.0) Red Blood Count 3.80 x10^6/uL (4.30-5.70) Hemoglobin 12.3 g/dL (13.0-17.5) Hematocrit 36.5 % (39.0-53.0) Mean Corpuscular Volume 96 fL (79-100) Mean Corpuscular Hemoglobin 32 pg (25-35) Mean Corpuscular Hemoglobin Concent 34 g/dL (31-37) Red Cell Distribution Width 14.0 % (11.5-14.5) Platelet Count 214 x10^3/uL (140-400) Neutrophils (%) (Auto) 57 % (31-73) Lymphocytes (%) (Auto) 30 % (24-48) Monocytes (%) (Auto) 8 % (0-9) Eosinophils (%) (Auto) 5 % (0-3) Basophils (%) (Auto) 1 % (0-3) Neutrophils # (Auto) 2.1 x10^3uL (1.8-7.7) Lymphocytes # (Auto) 1.1 x10^3/uL (1.0-4.8) Monocytes # (Auto) 0.3 x10^3/uL (0.0-1.1) Eosinophils # (Auto) 0.2 x10^3/uL (0.0-0.7) Basophils # (Auto) 0.0 x10^3/uL (0.0-0.2) Sodium Level 132 mmol/L (136-145) Potassium Level 3.8 mmol/L (3.5-5.1) Chloride Level 94 mmol/L (98-107) Carbon Dioxide Level 29 mmol/L (21-32) Anion Gap 9 (6-14) Blood Urea Nitrogen 9 mg/dL (8-26) Creatinine 1.3 mg/dL (0.7-1.3) Estimated GFR (Cockcroft-Gault) 63.3 Glucose Level 101 mg/dL (70-99) Calcium Level 8.2 mg/dL (8.5-10.1) Magnesium Level 2.3 mg/dL (1.8-2.4) Creatine Kinase 1891 U/L (39-308) Vitals/I & O Vital Sign - Last 24 Hours 08/03/18 08/03/18 08/03/18 08/03/18 15:56 15:56 19:26 20:00 Temp 97.7 98.2 97.7 98.2 Pulse 70 73 Resp 22 18 B/P (MAP) 145/105 (118) 152/76 (101) Pulse Ox 96 94 97 O2 Delivery Room Air Room Air Room Air Room Air 08/04/18 08/04/18 08/04/18 03:16 07:00 11:00 Temp 97.3 97.5 97.7 97.3 97.5 97.7 Pulse 68 62 74 Resp 20 18 18 B/P (MAP) 130/76 (94) 145/72 (96) 135/91 (106) Pulse Ox 94 95 97 O2 Delivery Nasal Cannula Room Air Room Air Intake and Output 08/03/18 08/03/18 08/04/18 15:00 23:00 07:00 Intake Total 500 ml 1790 ml 1300 ml Output Total 1120 ml 850 ml 500 ml Balance -620 ml 940 ml 800 ml Problem List Problems Medical Problems: (1) Chronic abdominal pain Status: Acute (2) Constipation Status: Acute (3) Hyponatremia Status: Acute (4) Rhabdomyolysis Status: Acute Assessment Obstipation; colonic 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 Plan of Care Note Continue as now as long as stooling. If stops stooling, neostigmine 2mg IVP over 5-10 minutes. Should be on monitored mcnulty for this and have 1mg atropine standing by to give if meaningful bradycardia. MINOO RUTH MD August 04, 2018 13:16
[2018-08-04 15:00] VITALS: BP 155/97
[2018-08-04] MEDS ORDERED: traMADol 50 MG TABLET PO PRN (15:00)
[2018-08-04] MEDS: ACETAMINOPHEN 325 MG TABLET. PO PRN (15:09)
[2018-08-04 19:00] VITALS: BP 147/101
[2018-08-04 23:00] VITALS: BP 150/113
[2018-08-05 03:00] VITALS: BP 145/96
[2018-08-05] MEDS: LEVOTHYROXINE 125 MCG TABLET PO SCH (06:11)
[2018-08-05 07:00] VITALS: BP 166/105
[2018-08-05] MEDS: PSYLLIUM HUSK (SUGAR FREE) 1 PKT PACKET PO SCH (08:12)
[2018-08-05] MEDS: POLYETHYLENE GLYCOL 3350 17 GM PACKET. PO SCH ×2 (08:12→20:45)
[2018-08-05] MEDS: DOCUSATE SODIUM 100 MG CAPSULE. PO SCH (08:12)
--- NOTE | 2018-08-05 08:16 | PDOC ---
PROGRESS NOTES Chief Complaint Chief Complaint Hypothyroidism Hyponatremia secondary to the above Abdominal distention secondary to constipation Acute renal failure secondary to prerenal azotemia Rhabdomyolysis elevation of CPK Hyponatremia secondary to low effective circulatory volume Abdominal pain secondary to constipation Plan: KUB Continue Synthroid Pain management Resume home medications Bicarbonate drip Further recommendations based on the clinical course History of Present Illness History of Present Illness Patient with no acute events reported overnight. Continues to be bloated explain the reason why he feels fatigued given his thyroid function test panel. Reassurances been provided I have changed the IV fluids given the CK levels which may be related to his hypothyroidism as well. Hopefully this will improve now that the patient is receiving supplementation. He feels less bloated, had 2 large BM this morning. Flatulence. CK down a bit this morning. Still with a pretty tense abdomen. Vitals Vitals Vital Signs Date Time Temp Pulse Resp B/P (MAP) Pulse Ox O2 Delivery O2 Flow Rate FiO2 08/05/18 07:00 97.8 78 18 166/105 (125) 93 Room Air 97.8 Physical Exam General: Alert, Cooperative, mild distress, Other (mod oriened 3/4) Abdomen: Normal bowel sounds, Soft (very distended, some tympany, round and full) Extremities: No cyanosis, No edema, Normal pulses Skin: No rashes, No significant lesion Assessment and Plan Assessmemt and Plan Problems Medical Problems: (1) Chronic abdominal pain Status: Acute (2) Constipation Status: Acute (3) Hyponatremia Status: Acute (4) Rhabdomyolysis Status: Acute Comment Review of Relevant I have reviewed the following items jersey (where applicable) has been applied. Labs Laboratory Tests Test 08/03/18 11:56 08/03/18 15:45 08/04/18 04:55 Troponin I Quantitative 0.023 ng/mL (0.000-0.055) Cortisol PM Sample 20.5 ug/dL (3.1-16.7) White Blood Count 3.8 x10^3/uL (4.0-11.0) Red Blood Count 3.80 x10^6/uL (4.30-5.70) Hemoglobin 12.3 g/dL (13.0-17.5) Hematocrit 36.5 % (39.0-53.0) Mean Corpuscular Volume 96 fL (79-100) Mean Corpuscular Hemoglobin 32 pg (25-35) Mean Corpuscular Hemoglobin Concent 34 g/dL (31-37) Red Cell Distribution Width 14.0 % (11.5-14.5) Platelet Count 214 x10^3/uL (140-400) Neutrophils (%) (Auto) 57 % (31-73) Lymphocytes (%) (Auto) 30 % (24-48) Monocytes (%) (Auto) 8 % (0-9) Eosinophils (%) (Auto) 5 % (0-3) Basophils (%) (Auto) 1 % (0-3) Neutrophils # (Auto) 2.1 x10^3uL (1.8-7.7) Lymphocytes # (Auto) 1.1 x10^3/uL (1.0-4.8) Monocytes # (Auto) 0.3 x10^3/uL (0.0-1.1) Eosinophils # (Auto) 0.2 x10^3/uL (0.0-0.7) Basophils # (Auto) 0.0 x10^3/uL (0.0-0.2) Sodium Level 132 mmol/L (136-145) Potassium Level 3.8 mmol/L (3.5-5.1) Chloride Level 94 mmol/L (98-107) Carbon Dioxide Level 29 mmol/L (21-32) Anion Gap 9 (6-14) Blood Urea Nitrogen 9 mg/dL (8-26) Creatinine 1.3 mg/dL (0.7-1.3) Estimated GFR (Cockcroft-Gault) 63.3 Glucose Level 101 mg/dL (70-99) Calcium Level 8.2 mg/dL (8.5-10.1) Magnesium Level 2.3 mg/dL (1.8-2.4) Creatine Kinase 1891 U/L (39-308) Medications Current Medications Morphine Sulfate (Morphine Sulfate) 2 mg PRN Q15MIN PRN IV/SQ PAIN GREATER THAN 3/10; Start 07/31/18 at 14:30; Stop 08/01/18 at 11:50; Status DC Iohexol (Omnipaque 300 Mg/ml) 60 ml 1X ONCE IV Last administered on 07/31/18at 16:37; Start 07/31/18 at 16:30; Stop 07/31/18 at 16:31; Status DC Info (CONTRAST GIVEN -- Rx MONITORING) 1 each PRN DAILY PRN MC SEE COMMENTS; Start 07/31/18 at 16:30; Stop 08/02/18 at 16:29; Status DC Sodium Chloride 1,000 ml @ 1,000 mls/hr 1X ONCE IV Last administered on 07/31/18at 17:04; Start 07/31/18 at 17:00; Stop 07/31/18 at 17:59; Status DC Sodium Chloride 1,000 ml @ 1,000 mls/hr 1X ONCE IV Last administered on 07/31/18at 17:58; Start 07/31/18 at 18:00; Stop 07/31/18 at 18:59; Status DC Sodium Chloride 1,000 ml @ 1,000 mls/hr 1X ONCE IV Last administered on 07/31/18at 17:58; Start 07/31/18 at 18:00; Stop 07/31/18 at 18:59; Status DC Ondansetron HCl (Zofran) 4 mg PRN Q8HRS PRN IV NAUSEA/VOMITING; Start 07/31/18 at 18:00; Stop 08/01/18 at 17:59; Status DC Morphine Sulfate (Morphine Sulfate) 2 mg PRN Q2HR PRN IV PAIN; Start 07/31/18 at 18:00; Stop 08/01/18 at 11:50; Status DC Acetaminophen (Tylenol) 650 mg PRN Q4HRS PRN PO FEVER; Start 07/31/18 at 18:00; Stop 08/01/18 at 17:59; Status DC Sodium Chloride 1,000 ml @ 125 mls/hr 1X ONCE IV Last administered on 07/31/18at 20:38; Start 07/31/18 at 18:00; Stop 08/01/18 at 01:59; Status DC Polyethylene Glycol (miraLAX PACKET) 17 gm BID PO Last administered on 08/05/18at 08:12; Start 07/31/18 at 21:00 Docusate Sodium (Colace) 100 mg DAILY PO Last administered on 08/05/18at 08:12; Start 08/01/18 at 09:00 Docusate Sodium (Colace) 100 mg PRN DAILY PRN PO CONSTIPATION; Start 07/31/18 at 20:45 Sodium Monofluorophosphate (Fleet Adult) 133 ml 1X ONCE CO ; Start 07/31/18 at 20:45; Stop 07/31/18 at 20:46; Status DC Sodium Chloride 1,000 ml @ 100 mls/hr Q10H IV Last administered on 08/03/18at 00:04; Start 07/31/18 at 20:45; Stop 08/03/18 at 09:43; Status DC Magnesium Citrate (Citroma) 296 ml 1X ONCE PO Last administered on 08/01/18at 12:37; Start 08/01/18 at 11:15; Stop 08/01/18 at 11:16; Status DC Dicyclomine HCl (Bentyl) 10 mg PRN Q6HRS PRN PO abdominal pain; Start 08/01/18 at 11:45 Methylnaltrexone [place] (Relistor) 12 mg PRN Q48HR PRN SQ CONSTIPATION Last administered on 08/03/18at 11:42; Start 08/01/18 at 11:45 Sodium Monofluorophosphate (Fleet Adult) 133 ml 1X ONCE CO Last administered on 08/01/18at 18:06; Start 08/01/18 at 17:30; Stop 08/01/18 at 17:31; Status DC Sodium Cl/Sod Bicarb/Potass Cl/ PEG (Golytely) 4,000 ml 1X ONCE PO Last administered on 08/02/18at 09:19; Start 08/02/18 at 09:00; Stop 08/02/18 at 09:01; Status DC Levothyroxine Sodium (Synthroid) 125 mcg DAILY06 PO Last administered on 08/05/18at 06:11; Start 08/02/18 at 15:30 Bisacodyl (Dulcolax Supp) 10 mg 1X ONCE CO ; Start 08/02/18 at 16:30; Stop 08/02/18 at 16:31; Status DC Magnesium Sulfate/ Dextrose 100 ml @ 100 mls/hr 1X ONCE IV Last administered on 08/03/18at 10:57; Start 08/03/18 at 11:00; Stop 08/03/18 at 11:59; Status DC Potassium Chloride (Klor-Con) 40 meq Q2H PO Last administered on 08/03/18at 12:52; Start 08/03/18 at 11:00; Stop 08/03/18 at 13:01; Status DC Sodium Bicarbonate 150 meq/Sterile Water 1,150 ml @ 150 mls/hr Q7H40M IV Last administered on 08/03/18at 18:28; Start 08/03/18 at 11:00; Stop 08/04/18 at 00:19; Status DC Albuterol Sulfate (Ventolin Neb Soln) 2.5 mg PRN Q4HRS PRN NEB SHORTNESS OF BREATH Last administered on 08/03/18at 15:54; Start 08/03/18 at 11:30 Albuterol/ Ipratropium (Duoneb) 3 ml STK-MED ONCE .ROUTE ; Start 08/03/18 at 11:20; Stop 08/03/18 at 11:21; Status DC Bisacodyl (Dulcolax Supp) 10 mg 1X ONCE CO Last administered on 08/03/18at 12:52; Start 08/03/18 at 12:00; Stop 08/03/18 at 12:01; Status DC Psyllium Hydrophilic Mucilloid (Metamucil Fiber Packet) 1 pkt DAILY PO Last administered on 08/05/18at 08:12; Start 08/04/18 at 11:00 Simethicone (Gas-X) 80 mg PRN AFTMEALHC PRN PO GAS / BLOATING; Start 08/04/18 at 11:00 Senna/Docusate Sodium (Senna Plus) 2 tab PRN BID PRN PO CONSTIPATION; Start 08/04/18 at 11:00 Magnesium Hydroxide (Milk Of Magnesia) 2,400 mg PRN DAILY PRN PO CONSTIPATION; Start 08/04/18 at 11:00 Acetaminophen (Tylenol) 650 mg PRN Q6HRS PRN PO Headache Last administered on 08/04/18at 15:09; Start 08/04/18 at 15:00 Tramadol HCl (Ultram) 50 mg PRN Q6HRS PRN PO PAIN; Start 08/04/18 at 15:00 Vitals/I & O Vital Sign - Last 24 Hours 08/04/18 08/04/18 08/04/18 08/04/18 11:00 15:00 19:00 20:07 Temp 97.7 98.1 97.5 97.7 98.1 97.5 Pulse 74 70 74 Resp 18 17 18 B/P (MAP) 135/91 (106) 155/97 (116) 147/101 (116) Pulse Ox 97 96 95 O2 Delivery Room Air Room Air Room Air Room Air 08/04/18 08/05/18 08/05/18 23:00 03:00 07:00 Temp 97.8 97.2 97.8 97.8 97.2 97.8 Pulse 88 68 78 Resp 18 18 18 B/P (MAP) 150/113 (125) 145/96 (112) 166/105 (125) Pulse Ox 93 95 93 O2 Delivery Room Air Room Air Room Air Intake and Output 08/04/18 08/04/18 08/05/18 15:00 23:00 07:00 Intake Total 250 ml 400 ml Output Total 200 ml 1150 ml Balance 50 ml -750 ml GUS PEREZ MD August 05, 2018 08:16
[2018-08-05 11:00] VITALS: BP 146/102
--- NOTE | 2018-08-05 12:49 | PDOC ---
G I PROGRESS NOTE Subjective Some stool/flatus, "a little". Too full to eat today. Physical Exam Lungs clear. RRR Abdomen distended, tympanitic. Maybe touch softer than yesterday. Review of Relevant I have reviewed the following items jersey (where applicable) has been applied. Labs Laboratory Tests Test 08/03/18 15:45 08/04/18 04:55 Cortisol PM Sample 20.5 ug/dL (3.1-16.7) White Blood Count 3.8 x10^3/uL (4.0-11.0) Red Blood Count 3.80 x10^6/uL (4.30-5.70) Hemoglobin 12.3 g/dL (13.0-17.5) Hematocrit 36.5 % (39.0-53.0) Mean Corpuscular Volume 96 fL (79-100) Mean Corpuscular Hemoglobin 32 pg (25-35) Mean Corpuscular Hemoglobin Concent 34 g/dL (31-37) Red Cell Distribution Width 14.0 % (11.5-14.5) Platelet Count 214 x10^3/uL (140-400) Neutrophils (%) (Auto) 57 % (31-73) Lymphocytes (%) (Auto) 30 % (24-48) Monocytes (%) (Auto) 8 % (0-9) Eosinophils (%) (Auto) 5 % (0-3) Basophils (%) (Auto) 1 % (0-3) Neutrophils # (Auto) 2.1 x10^3uL (1.8-7.7) Lymphocytes # (Auto) 1.1 x10^3/uL (1.0-4.8) Monocytes # (Auto) 0.3 x10^3/uL (0.0-1.1) Eosinophils # (Auto) 0.2 x10^3/uL (0.0-0.7) Basophils # (Auto) 0.0 x10^3/uL (0.0-0.2) Sodium Level 132 mmol/L (136-145) Potassium Level 3.8 mmol/L (3.5-5.1) Chloride Level 94 mmol/L (98-107) Carbon Dioxide Level 29 mmol/L (21-32) Anion Gap 9 (6-14) Blood Urea Nitrogen 9 mg/dL (8-26) Creatinine 1.3 mg/dL (0.7-1.3) Estimated GFR (Cockcroft-Gault) 63.3 Glucose Level 101 mg/dL (70-99) Calcium Level 8.2 mg/dL (8.5-10.1) Magnesium Level 2.3 mg/dL (1.8-2.4) Creatine Kinase 1891 U/L (39-308) Not much diurnal variation in cortisol. Medications Not on narcs. Vitals/I & O Vital Sign - Last 24 Hours 08/04/18 08/04/18 08/04/18 08/04/18 15:00 19:00 20:07 23:00 Temp 98.1 97.5 97.8 98.1 97.5 97.8 Pulse 70 74 88 Resp 18 B/P (MAP) 155/97 (116) 147/101 (116) 150/113 (125) Pulse Ox 96 95 93 O2 Delivery Room Air Room Air Room Air Room Air 08/05/18 08/05/18 08/05/18 08/05/18 03:00 07:00 08:00 11:00 Temp 97.2 97.8 97.6 97.2 97.8 97.6 Pulse 68 78 71 Resp 18 B/P (MAP) 145/96 (112) 166/105 (125) 146/102 (117) Pulse Ox 95 93 95 O2 Delivery Room Air Room Air Room Air Room Air Intake and Output 08/04/18 08/04/18 08/05/18 14:59 22:59 06:59 Intake Total 250 ml 400 ml Output Total 200 ml 1150 ml Balance 50 ml -750 ml Problem List Problems Medical Problems: (1) Chronic abdominal pain Status: Acute (2) Constipation Status: Acute (3) Hyponatremia Status: Acute (4) Rhabdomyolysis Status: Acute Assessment Colonic dilation; some is chronic, I suspect. Thyroid problem may play a role. 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 Loss of diurnal cortisol variation--real? Was struck by what seems to be a less than vigorous TSH level given no detectable hormone. Plan of Care Note Stop fiber and back to liquid diet. With inertia, fiber often worsens issues as greater load to process. Ducolax supp again. Consider pituitary imaging. MINOO RUTH MD August 05, 2018 12:49
[2018-08-05] MEDS ORDERED: MINERAL OIL 30 ML for ORAL USE. PO ONE (14:00)
[2018-08-05 15:00] VITALS: BP 177/106
[2018-08-05] MEDS: LUBIPROSTONE 8 MCG CAPSULE PO SCH (17:13)
[2018-08-05 19:00] VITALS: BP 159/100
[2018-08-05 23:00] VITALS: BP 140/97
[2018-08-06 03:00] VITALS: BP 140/86
[2018-08-06] MEDS: LEVOTHYROXINE 125 MCG TABLET PO SCH (05:26)
[2018-08-06 07:00] VITALS: BP 140/91
[2018-08-06] MEDS: POLYETHYLENE GLYCOL 3350 17 GM PACKET. PO SCH ×2 (07:33→20:41)
[2018-08-06] MEDS: DOCUSATE SODIUM 100 MG CAPSULE. PO SCH (07:33)
[2018-08-06] MEDS: LUBIPROSTONE 8 MCG CAPSULE PO SCH ×2 (07:33→17:13)
[2018-08-06] MEDS: BISACODYL 10 MG SUPP.RECT. PR SCH (07:36)
--- NOTE | 2018-08-06 09:30 | PDOC ---
Subjective: Subjective: Feels full, just ate. Thinks he passed some gas and stool yesterday. Objective: Objective: Per RN - supp given this morning, "smear" of stool. Vital Signs: Vital Signs Date Time Temp Pulse Resp B/P (MAP) Pulse Ox O2 Delivery O2 Flow Rate FiO2 08/06/18 08:00 Room Air 2.0 08/06/18 07:00 97.5 63 18 140/91 (107) 97 97.5 PE: GEN: NAD - finished clear liquid tray LUNGS: occasional soft wheeze anteriorly HEART: RRR ABD: still very distended/tight NEURO/PSYCH: A & O 3 A/P: Colonic dilation, ?inertia Hypothyroidism -- D/w Dr. Taylor and RN. Pt seen at 8:30 a.m. - made NPO at that time for flex sig this afternoon - I spent time discussing procedure with him. YOSELIN PRAKAHS August 06, 2018 09:30
--- NOTE | 2018-08-06 10:51 | PDOC ---
PROGRESS NOTES Chief Complaint Chief Complaint Hypothyroidism Hyponatremia secondary to the above Abdominal distention secondary to constipation Acute renal failure secondary to prerenal azotemia Rhabdomyolysis elevation of CPK Hyponatremia secondary to low effective circulatory volume Abdominal pain secondary to constipation Plan: Continue Synthroid Pain management Resume home medications repeat labs including cpk flex sig today by GI History of Present Illness History of Present Illness Patient with no acute events reported overnight. Continues to be bloated explain the reason why he feels fatigued given his thyroid function test panel. Reassurances been provided I have changed the IV fluids given the CK levels which may be related to his hypothyroidism as well. Hopefully this will improve now that the patient is receiving supplementation. He feels less bloated, had 2 large BM this morning. Flatulence. CK down a bit th is morning. Still with a pretty tense abdomen. Vitals Vitals Vital Signs Date Time Temp Pulse Resp B/P (MAP) Pulse Ox O2 Delivery O2 Flow Rate FiO2 08/06/18 08:00 Room Air 2.0 08/06/18 07:00 97.5 63 18 140/91 (107) 97 97.5 Physical Exam General: Alert, Cooperative, mild distress, Other (mod oriened 3/4) Abdomen: Normal bowel sounds, Soft (very distended, some tympany, round and full) Extremities: No cyanosis, No edema, Normal pulses Skin: No rashes, No significant lesion Assessment and Plan Assessmemt and Plan Problems Medical Problems: (1) Chronic abdominal pain Status: Acute (2) Constipation Status: Acute (3) Hyponatremia Status: Acute (4) Rhabdomyolysis Status: Acute Comment Review of Relevant I have reviewed the following items jersey (where applicable) has been applied. Medications Current Medications Morphine Sulfate (Morphine Sulfate) 2 mg PRN Q15MIN PRN IV/SQ PAIN GREATER THAN 3/10; Start 07/31/18 at 14:30; Stop 08/01/18 at 11:50; Status DC Iohexol (Omnipaque 300 Mg/ml) 60 ml 1X ONCE IV Last administered on 07/31/18at 16:37; Start 07/31/18 at 16:30; Stop 07/31/18 at 16:31; Status DC Info (CONTRAST GIVEN -- Rx MONITORING) 1 each PRN DAILY PRN MC SEE COMMENTS; Start 07/31/18 at 16:30; Stop 08/02/18 at 16:29; Status DC Sodium Chloride 1,000 ml @ 1,000 mls/hr 1X ONCE IV Last administered on 07/31/18at 17:04; Start 07/31/18 at 17:00; Stop 07/31/18 at 17:59; Status DC Sodium Chloride 1,000 ml @ 1,000 mls/hr 1X ONCE IV Last administered on 07/31/18at 17:58; Start 07/31/18 at 18:00; Stop 07/31/18 at 18:59; Status DC Sodium Chloride 1,000 ml @ 1,000 mls/hr 1X ONCE IV Last administered on 07/31/18at 17:58; Start 07/31/18 at 18:00; Stop 07/31/18 at 18:59; Status DC Ondansetron HCl (Zofran) 4 mg PRN Q8HRS PRN IV NAUSEA/VOMITING; Start 07/31/18 at 18:00; Stop 08/01/18 at 17:59; Status DC Morphine Sulfate (Morphine Sulfate) 2 mg PRN Q2HR PRN IV PAIN; Start 07/31/18 at 18:00; Stop 08/01/18 at 11:50; Status DC Acetaminophen (Tylenol) 650 mg PRN Q4HRS PRN PO FEVER; Start 07/31/18 at 18:00; Stop 08/01/18 at 17:59; Status DC Sodium Chloride 1,000 ml @ 125 mls/hr 1X ONCE IV Last administered on 07/31/18at 20:38; Start 07/31/18 at 18:00; Stop 08/01/18 at 01:59; Status DC Polyethylene Glycol (miraLAX PACKET) 17 gm BID PO Last administered on 08/06/18at 07:33; Start 07/31/18 at 21:00 Docusate Sodium (Colace) 100 mg DAILY PO Last administered on 08/06/18at 07:33; Start 08/01/18 at 09:00 Docusate Sodium (Colace) 100 mg PRN DAILY PRN PO CONSTIPATION, 1ST CHOICE; Start 07/31/18 at 20:45 Sodium Monofluorophosphate (Fleet Adult) 133 ml 1X ONCE DC ; Start 07/31/18 at 20:45; Stop 07/31/18 at 20:46; Status DC Sodium Chloride 1,000 ml @ 100 mls/hr Q10H IV Last administered on 08/03/18at 00:04; Start 07/31/18 at 20:45; Stop 08/03/18 at 09:43; Status DC Magnesium Citrate (Citroma) 296 ml 1X ONCE PO Last administered on 08/01/18at 12:37; Start 08/01/18 at 11:15; Stop 08/01/18 at 11:16; Status DC Dicyclomine HCl (Bentyl) 10 mg PRN Q6HRS PRN PO abdominal pain; Start 08/01/18 at 11:45 Methylnaltrexone [place] (Relistor) 12 mg PRN Q48HR PRN SQ CONSTIPATION Last administered on 08/03/18at 11:42; Start 08/01/18 at 11:45 Sodium Monofluorophosphate (Fleet Adult) 133 ml 1X ONCE DC Last administered on 08/01/18at 18:06; Start 08/01/18 at 17:30; Stop 08/01/18 at 17:31; Status DC Sodium Cl/Sod Bicarb/Potass Cl/ PEG (Golytely) 4,000 ml 1X ONCE PO Last administered on 08/02/18at 09:19; Start 08/02/18 at 09:00; Stop 08/02/18 at 09:01; Status DC Levothyroxine Sodium (Synthroid) 125 mcg DAILY06 PO Last administered on 08/06/18at 05:26; Start 08/02/18 at 15:30 Bisacodyl (Dulcolax Supp) 10 mg 1X ONCE DC ; Start 08/02/18 at 16:30; Stop 08/02/18 at 16:31; Status DC Magnesium Sulfate/ Dextrose 100 ml @ 100 mls/hr 1X ONCE IV Last administered on 08/03/18at 10:57; Start 08/03/18 at 11:00; Stop 08/03/18 at 11:59; Status DC Potassium Chloride (Klor-Con) 40 meq Q2H PO Last administered on 08/03/18at 12:52; Start 08/03/18 at 11:00; Stop 08/03/18 at 13:01; Status DC Sodium Bicarbonate 150 meq/Sterile Water 1,150 ml @ 150 mls/hr Q7H40M IV Last administered on 08/03/18at 18:28; Start 08/03/18 at 11:00; Stop 08/04/18 at 00:19; Status DC Albuterol Sulfate (Ventolin Neb Soln) 2.5 mg PRN Q4HRS PRN NEB SHORTNESS OF BREATH Last administered on 08/03/18at 15:54; Start 08/03/18 at 11:30 Albuterol/ Ipratropium (Duoneb) 3 ml STK-MED ONCE .ROUTE ; Start 08/03/18 at 11:20; Stop 08/03/18 at 11:21; Status DC Bisacodyl (Dulcolax Supp) 10 mg 1X ONCE DC Last administered on 08/03/18at 12:52; Start 08/03/18 at 12:00; Stop 08/03/18 at 12:01; Status DC Psyllium Hydrophilic Mucilloid (Metamucil Fiber Packet) 1 pkt DAILY PO Last administered on 08/05/18at 08:12; Start 08/04/18 at 11:00; Stop 08/05/18 at 12:51; Status DC Simethicone (Gas-X) 80 mg PRN AFTMEALHC PRN PO GAS / BLOATING; Start 08/04/18 at 11:00 Senna/Docusate Sodium (Senna Plus) 2 tab PRN BID PRN PO CONSTIPATION, 3RD CHOICE; Start 08/04/18 at 11:00 Magnesium Hydroxide (Milk Of Magnesia) 2,400 mg PRN DAILY PRN PO CONSTIPATION, 2ND CHOICE; Start 08/04/18 at 11:00 Acetaminophen (Tylenol) 650 mg PRN Q6HRS PRN PO Headache Last administered on 08/04/18at 15:09; Start 08/04/18 at 15:00 Tramadol HCl (Ultram) 50 mg PRN Q6HRS PRN PO PAIN; Start 08/04/18 at 15:00 Bisacodyl (Dulcolax Supp) 10 mg DAILY DC Last administered on 08/06/18at 07:36; Start 08/06/18 at 09:00 Lubiprostone (Amitiza) 8 mcg BIDWMEALS PO Last administered on 08/06/18at 07:33; Start 08/05/18 at 17:00 Mineral Oil (Mineral Oil) 30 ml 1X ONCE PO Last administered on 08/05/18at 14:00; Start 08/05/18 at 14:00; Stop 08/05/18 at 14:01; Status DC Vitals/I & O Vital Sign - Last 24 Hours 08/05/18 08/05/18 08/05/18 08/05/18 11:00 15:00 19:00 19:38 Temp 97.6 97.8 97.5 97.6 97.8 97.5 Pulse 71 73 71 Resp 18 B/P (MAP) 146/102 (117) 177/106 (129) 159/100 (119) Pulse Ox 95 93 97 O2 Delivery Room Air Room Air Room Air Room Air 08/05/18 08/06/18 08/06/18 08/06/18 23:00 03:00 07:00 08:00 Temp 98.3 97.8 97.5 98.3 97.8 97.5 Pulse 61 60 63 Resp 18 B/P (MAP) 140/97 (111) 140/86 (104) 140/91 (107) Pulse Ox 98 93 97 O2 Delivery Room Air Room Air Nasal Cannula Room Air O2 Flow Rate 2.0 2.0 Intake and Output 08/05/18 08/05/18 08/06/18 15:00 23:00 07:00 Intake Total 100 ml 200 ml Output Total 202 ml 300 ml 700 ml Balance -202 ml -200 ml -500 ml YOLIS GAFFNEY MD August 06, 2018 10:51
[2018-08-06 11:00] VITALS: BP 116/74
[2018-08-06] MEDS ORDERED: LIDOCAINE 2% PF 5 ML VIAL. ONE (13:59)
[2018-08-06] MEDS ORDERED: PROPOFOL 20 ML IV ONE (13:59)
[2018-08-06] MEDS ORDERED: IV RINGERS,LACTATED 1000ML 1,000 ML IV SCH (14:00)
[2018-08-06] MEDS ORDERED: MIDAZOLAM HCL/PF 2 MG/2 ML VIAL. IV PRN (14:00)
[2018-08-06] MEDS ORDERED: LIDOCAINE 1% PF 2 ML VIAL. ID PRN (14:00)
[2018-08-06] MEDS ORDERED: fentaNYL PF VIAL 100 MCG/2 ML VIAL IV PRN ×2 (14:00)
--- NOTE | 2018-08-06 14:35 | PDOC4 ---
PROCEDURE Procedure Flex SIG Indication: obstipation/abnormal imaging/rule out distal obstruction. Meds: per anesthesia Findings: SHABBIR normal. --'Scope advanced to probably descending colon near splenic flexure. Formed to liquid stool throughout. What mucosa seen normal. No diverticulosis, polyps appreciated. No volvulus or obstruction encountered. Colon above rectum variably dilated. Did attempt to decompress. [place]. well. 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 Maybe from hypothyroidism. REC: Low residue diet. No fiber supplement. Continue Miralax/daily Ducolax supp. If not stooling better soon, try Neostigmine. Thanks. MINOO RUTH MD August 06, 2018 14:34
--- NOTE | 2018-08-06 15:58 | NUR ---
Patient care assumed. Patient resting comfortably in be watching TV. Abd. soft with mild distention. Patient reports good stool results today and feeling better. Continue cares and monitor.
[2018-08-06 19:00] VITALS: BP 130/78
[2018-08-06] MEDS: ACETAMINOPHEN 325 MG TABLET. PO PRN (20:46)
--- NOTE | 2018-08-06 21:00 | NUR ---
Patient requested 325mg Tylenol instead of the prescribed 650mg dose.
[2018-08-06 23:00] VITALS: BP 136/80
[2018-08-07 03:05] VITALS: BP 132/86
[2018-08-07] MEDS: LEVOTHYROXINE 125 MCG TABLET PO SCH (05:24)
[2018-08-07 06:04] LABS: BASO % 1 % (0-3); EOS # 0.1 x10^3/uL (0.0-0.7); EOS % 4 % (0-3); HEMATOCRIT 37.8 % (39.0-53.0); HEMOGLOBIN 13.3 g/dL (13.0-17.5); LYMPH # 1.1 x10^3/uL (1.0-4.8); LYMPH % 32 % (24-48); MEAN CORPUSCULAR HEMOGLOBIN 34 pg (25-35); MEAN CORPUSCULAR HGB CONC 35 g/dL (31-37); MEAN CORPUSCULAR VOLUME 97 fL (79-100); MONO # 0.2 x10^3/uL (0.0-1.1); MONO % 7 % (0-9); NEUT # 1.8 x10^3uL (1.8-7.7); NEUT % 56 % (31-73); PLATELET COUNT 220 x10^3/uL (140-400); RED BLOOD COUNT 3.89 x10^6/uL (4.30-5.70); RED CELL DISTRIBUTION WIDTH 13.9 % (11.5-14.5); WHITE BLOOD COUNT 3.3 x10^3/uL (4.0-11.0)
[2018-08-07 06:13] LABS: CALCIUM 8.5 mg/dL (8.5-10.1); CREATININE 1.4 mg/dL (0.7-1.3); GFR 58.1; POTASSIUM 3.7 mmol/L (3.5-5.1)
[2018-08-07 07:00] VITALS: BP 169/94
--- NOTE | 2018-08-07 10:04 | PDOC ---
Subjective: Subjective: Says he's better but wonders what's taking so long. Might have passed some stool earlier. Objective: Vital Signs: Vital Signs Date Time Temp Pulse Resp B/P (MAP) Pulse Ox O2 Delivery O2 Flow Rate FiO2 08/07/18 07:00 98.4 72 17 169/94 (119) 94 Room Air 98.4 08/06/18 14:42 2.0 Labs: Laboratory Tests Test 08/06/18 11:08 08/07/18 03:55 Creatine Kinase 1518 U/L White Blood Count 3.3 x10^3/uL Red Blood Count 3.89 x10^6/uL Hemoglobin 13.3 g/dL Hematocrit 37.8 % Mean Corpuscular Volume 97 fL Mean Corpuscular Hemoglobin 34 pg Mean Corpuscular Hemoglobin Concent 35 g/dL Red Cell Distribution Width 13.9 % Platelet Count 220 x10^3/uL Neutrophils (%) (Auto) 56 % Lymphocytes (%) (Auto) 32 % Monocytes (%) (Auto) 7 % Eosinophils (%) (Auto) 4 % Basophils (%) (Auto) 1 % Neutrophils # (Auto) 1.8 x10^3uL Lymphocytes # (Auto) 1.1 x10^3/uL Monocytes # (Auto) 0.2 x10^3/uL Eosinophils # (Auto) 0.1 x10^3/uL Basophils # (Auto) 0.0 x10^3/uL Sodium Level 130 mmol/L Potassium Level 3.7 mmol/L Chloride Level 94 mmol/L Carbon Dioxide Level 28 mmol/L Anion Gap 8 Blood Urea Nitrogen 7 mg/dL Creatinine 1.4 mg/dL Estimated GFR (Cockcroft-Gault) 58.1 Glucose Level 90 mg/dL Calcium Level 8.5 mg/dL Imaging: FS 08/06 Findings: SHABBIR normal. --'Scope advanced to probably descending colon near splenic flexure. Formed to liquid stool throughout. What mucosa seen normal. No diverticulosis, polyps appreciated. No volvulus or obstruction encountered. Colon above rectum variably dilated. Did attempt to decompress. 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 Maybe from hypothyroidism. PE: GEN: NAD LUNGS: CTAB HEART: RRR ABD: distended but a bit softer, BS+ NEURO/PSYCH: A & O 3 A/P: Pseudoobstruction/colonic inertia Hypothyroidism, HTN -- Abd a bit softer today though still distended. Has yet to receive Dulcolax and Miralax today. Will review w/ Dr. Taylor. YOSELIN PRAKASH August 07, 2018 10:04
[2018-08-07] MEDS: LUBIPROSTONE 8 MCG CAPSULE PO SCH ×2 (10:12→17:57)
[2018-08-07] MEDS: DOCUSATE SODIUM 100 MG CAPSULE. PO SCH (10:13)
[2018-08-07] MEDS: BISACODYL 10 MG SUPP.RECT. PR SCH (10:13)
[2018-08-07] MEDS: POLYETHYLENE GLYCOL 3350 17 GM PACKET. PO SCH ×2 (10:14→20:47)
[2018-08-07 11:00] VITALS: BP 136/80
--- NOTE | 2018-08-07 13:26 | PDOC ---
PROGRESS NOTES Chief Complaint Chief Complaint Hypothyroidism Hyponatremia secondary to the above Colonic Inertia Acute renal failure secondary to prerenal azotemia Rhabdomyolysis elevation of CPK Hyponatremia secondary to low effective circulatory volume s/p flex sig 08/06 Plan: Continue Synthroid Pain management Resume home medications FS 08/06: Pseudoobstruction. 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 Maybe from hypothyroidism. continue bowel regimen creatine 1.4 follow cpk History of Present Illness History of Present Illness belly still distended but slightly softer. having BMs. no complaints. denies chest pain sob, tolerating PO diet. Vitals Vitals Vital Signs Date Time Temp Pulse Resp B/P (MAP) Pulse Ox O2 Delivery O2 Flow Rate FiO2 08/07/18 11:00 97.6 71 17 136/80 (98) 97 Room Air 97.6 08/06/18 14:42 2.0 Physical Exam General: Alert, Cooperative, mild distress, Other (mod oriened 3/4) Abdomen: Normal bowel sounds, Soft (very distended, some tympany, round and full) Extremities: No cyanosis, No edema, Normal pulses Skin: No rashes, No significant lesion Labs LABS Laboratory Tests Test 08/07/18 03:55 White Blood Count 3.3 x10^3/uL (4.0-11.0) Red Blood Count 3.89 x10^6/uL (4.30-5.70) Hemoglobin 13.3 g/dL (13.0-17.5) Hematocrit 37.8 % (39.0-53.0) Mean Corpuscular Volume 97 fL (79-100) Mean Corpuscular Hemoglobin 34 pg (25-35) Mean Corpuscular Hemoglobin Concent 35 g/dL (31-37) Red Cell Distribution Width 13.9 % (11.5-14.5) Platelet Count 220 x10^3/uL (140-400) Neutrophils (%) (Auto) 56 % (31-73) Lymphocytes (%) (Auto) 32 % (24-48) Monocytes (%) (Auto) 7 % (0-9) Eosinophils (%) (Auto) 4 % (0-3) Basophils (%) (Auto) 1 % (0-3) Neutrophils # (Auto) 1.8 x10^3uL (1.8-7.7) Lymphocytes # (Auto) 1.1 x10^3/uL (1.0-4.8) Monocytes # (Auto) 0.2 x10^3/uL (0.0-1.1) Eosinophils # (Auto) 0.1 x10^3/uL (0.0-0.7) Basophils # (Auto) 0.0 x10^3/uL (0.0-0.2) Sodium Level 130 mmol/L (136-145) Potassium Level 3.7 mmol/L (3.5-5.1) Chloride Level 94 mmol/L (98-107) Carbon Dioxide Level 28 mmol/L (21-32) Anion Gap 8 (6-14) Blood Urea Nitrogen 7 mg/dL (8-26) Creatinine 1.4 mg/dL (0.7-1.3) Estimated GFR (Cockcroft-Gault) 58.1 Glucose Level 90 mg/dL (70-99) Calcium Level 8.5 mg/dL (8.5-10.1) Assessment and Plan Assessmemt and Plan Problems Medical Problems: (1) Chronic abdominal pain Status: Acute (2) Constipation Status: Acute (3) Hyponatremia Status: Acute (4) Rhabdomyolysis Status: Acute Comment Review of Relevant I have reviewed the following items [place] (where applicable) has been applied. Labs Laboratory Tests Test 08/06/18 11:08 08/07/18 03:55 Creatine Kinase 1518 U/L (39-308) White Blood Count 3.3 x10^3/uL (4.0-11.0) Red Blood Count 3.89 x10^6/uL (4.30-5.70) Hemoglobin 13.3 g/dL (13.0-17.5) Hematocrit 37.8 % (39.0-53.0) Mean Corpuscular Volume 97 fL (79-100) Mean Corpuscular Hemoglobin 34 pg (25-35) Mean Corpuscular Hemoglobin Concent 35 g/dL (31-37) Red Cell Distribution Width 13.9 % (11.5-14.5) Platelet Count 220 x10^3/uL (140-400) Neutrophils (%) (Auto) 56 % (31-73) Lymphocytes (%) (Auto) 32 % (24-48) Monocytes (%) (Auto) 7 % (0-9) Eosinophils (%) (Auto) 4 % (0-3) Basophils (%) (Auto) 1 % (0-3) Neutrophils # (Auto) 1.8 x10^3uL (1.8-7.7) Lymphocytes # (Auto) 1.1 x10^3/uL (1.0-4.8) Monocytes # (Auto) 0.2 x10^3/uL (0.0-1.1) Eosinophils # (Auto) 0.1 x10^3/uL (0.0-0.7) Basophils # (Auto) 0.0 x10^3/uL (0.0-0.2) Sodium Level 130 mmol/L (136-145) Potassium Level 3.7 mmol/L (3.5-5.1) Chloride Level 94 mmol/L (98-107) Carbon Dioxide Level 28 mmol/L (21-32) Anion Gap 8 (6-14) Blood Urea Nitrogen 7 mg/dL (8-26) Creatinine 1.4 mg/dL (0.7-1.3) Estimated GFR (Cockcroft-Gault) 58.1 Glucose Level 90 mg/dL (70-99) Calcium Level 8.5 mg/dL (8.5-10.1) Laboratory Tests Test 08/07/18 03:55 White Blood Count 3.3 x10^3/uL (4.0-11.0) Red Blood Count 3.89 x10^6/uL (4.30-5.70) Hemoglobin 13.3 g/dL (13.0-17.5) Hematocrit 37.8 % (39.0-53.0) Mean Corpuscular Volume 97 fL (79-100) Mean Corpuscular Hemoglobin 34 pg (25-35) Mean Corpuscular Hemoglobin Concent 35 g/dL (31-37) Red Cell Distribution Width 13.9 % (11.5-14.5) Platelet Count 220 x10^3/uL (140-400) Neutrophils (%) (Auto) 56 % (31-73) Lymphocytes (%) (Auto) 32 % (24-48) Monocytes (%) (Auto) 7 % (0-9) Eosinophils (%) (Auto) 4 % (0-3) Basophils (%) (Auto) 1 % (0-3) Neutrophils # (Auto) 1.8 x10^3uL (1.8-7.7) Lymphocytes # (Auto) 1.1 x10^3/uL (1.0-4.8) Monocytes # (Auto) 0.2 x10^3/uL (0.0-1.1) Eosinophils # (Auto) 0.1 x10^3/uL (0.0-0.7) Basophils # (Auto) 0.0 x10^3/uL (0.0-0.2) Sodium Level 130 mmol/L (136-145) Potassium Level 3.7 mmol/L (3.5-5.1) Chloride Level 94 mmol/L (98-107) Carbon Dioxide Level 28 mmol/L (21-32) Anion Gap 8 (6-14) Blood Urea Nitrogen 7 mg/dL (8-26) Creatinine 1.4 mg/dL (0.7-1.3) Estimated GFR (Cockcroft-Gault) 58.1 Glucose Level 90 mg/dL (70-99) Calcium Level 8.5 mg/dL (8.5-10.1) Medications Current Medications Morphine Sulfate (Morphine Sulfate) 2 mg PRN Q15MIN PRN IV/SQ PAIN GREATER THAN 3/10; Start 07/31/18 at 14:30; Stop 08/01/18 at 11:50; Status DC Iohexol (Omnipaque 300 Mg/ml) 60 ml 1X ONCE IV Last administered on 07/31/18at 16:37; Start 07/31/18 at 16:30; Stop 07/31/18 at 16:31; Status DC Info (CONTRAST GIVEN -- Rx MONITORING) 1 each PRN DAILY PRN MC SEE COMMENTS; Start 07/31/18 at 16:30; Stop 08/02/18 at 16:29; Status DC Sodium Chloride 1,000 ml @ 1,000 mls/hr 1X ONCE IV Last administered on 07/31/18at 17:04; Start 07/31/18 at 17:00; Stop 07/31/18 at 17:59; Status DC Sodium Chloride 1,000 ml @ 1,000 mls/hr 1X ONCE IV Last administered on 07/31/18at 17:58; Start 07/31/18 at 18:00; Stop 07/31/18 at 18:59; Status DC Sodium Chloride 1,000 ml @ 1,000 mls/hr 1X ONCE IV Last administered on 07/31/18at 17:58; Start 07/31/18 at 18:00; Stop 07/31/18 at 18:59; Status DC Ondansetron HCl (Zofran) 4 mg PRN Q8HRS PRN IV NAUSEA/VOMITING; Start 07/31/18 at 18:00; Stop 08/01/18 at 17:59; Status DC Morphine Sulfate (Morphine Sulfate) 2 mg PRN Q2HR PRN IV PAIN; Start 07/31/18 at 18:00; Stop 08/01/18 at 11:50; Status DC Acetaminophen (Tylenol) 650 mg PRN Q4HRS PRN PO FEVER; Start 07/31/18 at 18:00; Stop 08/01/18 at 17:59; Status DC Sodium Chloride 1,000 ml @ 125 mls/hr 1X ONCE IV Last administered on 07/31/18at 20:38; Start 07/31/18 at 18:00; Stop 08/01/18 at 01:59; Status DC Polyethylene Glycol (miraLAX PACKET) 17 gm BID PO Last administered on 08/07/18at 10:14; Start 07/31/18 at 21:00 Docusate Sodium (Colace) 100 mg DAILY PO Last administered on 08/07/18at 10:13; Start 08/01/18 at 09:00 Docusate Sodium (Colace) 100 mg PRN DAILY PRN PO CONSTIPATION, 1ST CHOICE; Start 07/31/18 at 20:45 Sodium Monofluorophosphate (Fleet Adult) 133 ml 1X ONCE GA ; Start 07/31/18 at 20:45; Stop 07/31/18 at 20:46; Status DC Sodium Chloride 1,000 ml @ 100 mls/hr Q10H IV Last administered on 08/03/18at 00:04; Start 07/31/18 at 20:45; Stop 08/03/18 at 09:43; Status DC Magnesium Citrate (Citroma) 296 ml 1X ONCE PO Last administered on 08/01/18at 12:37; Start 08/01/18 at 11:15; Stop 08/01/18 at 11:16; Status DC Dicyclomine HCl (Bentyl) 10 mg PRN Q6HRS PRN PO abdominal pain; Start 08/01/18 at 11:45 Methylnaltrexone [place] (Relistor) 12 mg PRN Q48HR PRN SQ CONSTIPATION Last administered on 08/03/18at 11:42; Start 08/01/18 at 11:45 Sodium Monofluorophosphate (Fleet Adult) 133 ml 1X ONCE GA Last administered on 08/01/18at 18:06; Start 08/01/18 at 17:30; Stop 08/01/18 at 17:31; Status DC Sodium Cl/Sod Bicarb/Potass Cl/ PEG (Golytely) 4,000 ml 1X ONCE PO Last administered on 08/02/18at 09:19; Start 08/02/18 at 09:00; Stop 08/02/18 at 09:01; Status DC Levothyroxine Sodium (Synthroid) 125 mcg DAILY06 PO Last administered on 08/07/18at 05:24; Start 08/02/18 at 15:30 Bisacodyl (Dulcolax Supp) 10 mg 1X ONCE GA ; Start 08/02/18 at 16:30; Stop 08/02/18 at 16:31; Status DC Magnesium Sulfate/ Dextrose 100 ml @ 100 mls/hr 1X ONCE IV Last administered on 08/03/18at 10:57; Start 08/03/18 at 11:00; Stop 08/03/18 at 11:59; Status DC Potassium Chloride (Klor-Con) 40 meq Q2H PO Last administered on 08/03/18at 12:52; Start 08/03/18 at 11:00; Stop 08/03/18 at 13:01; Status DC Sodium Bicarbonate 150 meq/Sterile Water 1,150 ml @ 150 mls/hr Q7H40M IV Last administered on 08/03/18at 18:28; Start 08/03/18 at 11:00; Stop 08/04/18 at 00:19; Status DC Albuterol Sulfate (Ventolin Neb Soln) 2.5 mg PRN Q4HRS PRN NEB SHORTNESS OF BREATH Last administered on 08/03/18at 15:54; Start 08/03/18 at 11:30 Albuterol/ Ipratropium (Duoneb) 3 ml STK-MED ONCE .ROUTE ; Start 08/03/18 at 11:20; Stop 08/03/18 at 11:21; Status DC Bisacodyl (Dulcolax Supp) 10 mg 1X ONCE GA Last administered on 08/03/18at 12:52; Start 08/03/18 at 12:00; Stop 08/03/18 at 12:01; Status DC Psyllium Hydrophilic Mucilloid (Metamucil Fiber Packet) 1 pkt DAILY PO Last administered on 08/05/18at 08:12; Start 08/04/18 at 11:00; Stop 08/05/18 at 12:51; Status DC Simethicone (Gas-X) 80 mg PRN AFTMEALHC PRN PO GAS / BLOATING; Start 08/04/18 at 11:00 Senna/Docusate Sodium (Senna Plus) 2 tab PRN BID PRN PO CONSTIPATION, 3RD CHOICE; Start 08/04/18 at 11:00 Magnesium Hydroxide (Milk Of Magnesia) 2,400 mg PRN DAILY PRN PO CONSTIPATION, 2ND CHOICE; Start 08/04/18 at 11:00 Acetaminophen (Tylenol) 650 mg PRN Q6HRS PRN PO Headache Last administered on 08/06/18at 20:46; Start 08/04/18 at 15:00 Tramadol HCl (Ultram) 50 mg PRN Q6HRS PRN PO PAIN; Start 08/04/18 at 15:00 Bisacodyl (Dulcolax Supp) 10 mg DAILY GA Last administered on 08/07/18at 10:13; Start 08/06/18 at 09:00 Lubiprostone (Amitiza) 8 mcg BIDWMEALS PO Last administered on 08/07/18at 10:12; Start 08/05/18 at 17:00 Mineral Oil (Mineral Oil) 30 ml 1X ONCE PO Last administered on 08/05/18at 14:00; Start 08/05/18 at 14:00; Stop 08/05/18 at 14:01; Status DC Propofol 20 ml @ As Directed STK-MED ONCE IV ; Start 08/06/18 at 13:59; Stop 08/06/18 at 14:00; Status DC Lidocaine HCl (Lidocaine Pf 2% Vial) 5 ml STK-MED ONCE .ROUTE ; Start 08/06/18 at 13:59; Stop 08/06/18 at 14:00; Status DC Midazolam HCl (Versed) 2 mg PRN 1X PRN IV PRIOR TO PROCEDURE; Start 08/06/18 at 14:00; Stop 08/07/18 at 13:59 Fentanyl Citrate (Fentanyl 2ml Vial) 25 mcg PRN Q5MIN PRN IV X 2 DOSES FOR PAIN; Start 08/06/18 at 14:00; Stop 08/07/18 at 13:59 Fentanyl Citrate (Fentanyl 2ml Vial) 50 mcg PRN Q5MIN PRN IV X 2 DOSES FOR PAIN; Start 08/06/18 at 14:00; Stop 08/07/18 at 13:59 Ringer's Solution 1,000 ml @ 125 mls/hr Q8H IV Last administered on 08/06/18at 14:00; Start 08/06/18 at 14:00; Stop 08/06/18 at 23:08; Status DC Lidocaine HCl (Xylocaine-Mpf 1% 2ml Vial) 2 ml 1X PRN PRN ID IV START; Start 08/06/18 at 14:00; Stop 08/07/18 at 13:59 Vitals/I & O Vital Sign - Last 24 Hours 08/06/18 08/06/18 08/06/18 08/06/18 14:01 14:08 14:30 14:42 Temp 98.0 98.0 98.0 98.0 98.0 98.0 Pulse 75 69 70 Resp 20 20 20 B/P (MAP) 89/56 99/65 Pulse Ox 94 98 99 O2 Delivery Room Air Room Air Nasal Cannula O2 Flow Rate 2.0 2.0 2.0 08/06/18 08/06/18 08/06/18 08/06/18 14:51 15:00 19:00 19:29 Temp 98.0 98.0 98.5 98.0 98.0 98.5 Pulse 71 72 53 Resp 20 20 20 B/P (MAP) 113/79 120/94 130/78 (95) Pulse Ox 96 96 94 O2 Delivery Room Air Room Air Room Air Room Air 08/06/18 08/07/18 08/07/18 08/07/18 23:00 03:05 07:00 08:00 Temp 97.4 97.8 98.4 97.4 97.8 98.4 Pulse 71 62 72 Resp 20 20 17 B/P (MAP) 136/80 (98) 132/86 (101) 169/94 (119) Pulse Ox 95 95 94 O2 Delivery Room Air Room Air Room Air Room Air 08/07/18 11:00 Temp 97.6 97.6 Pulse 71 Resp 17 B/P (MAP) 136/80 (98) Pulse Ox 97 O2 Delivery Room Air Intake and Output 08/06/18 08/06/18 08/07/18 15:00 23:00 07:00 Output Total 400 ml 640 ml 400 ml Balance -400 ml -640 ml -400 ml YOLIS GAFFNEY MD August 07, 2018 13:26
[2018-08-07 15:00] VITALS: BP 162/92
--- NOTE | 2018-08-07 16:00 | NUR ---
SW following pt. Plan is home with home health upon dc. Updates faxed to [facility] by [facility]. Discussed with RN.
[2018-08-07 19:00] VITALS: BP 148/83
--- NOTE | 2018-08-07 20:32 | NUR ---
IV LR was DC'd prior to my shift. I did select to end transfusion.
[2018-08-07 23:00] VITALS: BP 154/96
[2018-08-08 03:00] VITALS: BP 147/83
[2018-08-08] MEDS: LEVOTHYROXINE 125 MCG TABLET PO SCH (06:02)
[2018-08-08 07:00] VITALS: BP 143/80
[2018-08-08] MEDS ORDERED: TRAM50TA PO (08:33)
[2018-08-08] MEDS ORDERED: LEVO125T PO (08:33)
[2018-08-08] MEDS ORDERED: LUBI8CAP4 PO (08:33)
[2018-08-08] MEDS ORDERED: DOCU-109 PO ×2 (08:33)
[2018-08-08] MEDS ORDERED: BISACODYL PR (08:33)
[2018-08-08] MEDS ORDERED: POLY17PO28 PO (08:33)
[2018-08-08] MEDS ORDERED: SIME80TA14 PO (08:33)
[2018-08-08] MEDS ORDERED: DICY10CA3 PO (08:33)
[2018-08-08] MEDS: POLYETHYLENE GLYCOL 3350 17 GM PACKET. PO SCH (08:34)
[2018-08-08] MEDS: BISACODYL 10 MG SUPP.RECT. PR SCH (08:34)
[2018-08-08] MEDS: LUBIPROSTONE 8 MCG CAPSULE PO SCH (08:34)
[2018-08-08] MEDS: DOCUSATE SODIUM 100 MG CAPSULE. PO SCH (08:34)
--- NOTE | 2018-08-08 10:48 | SNU/HH DC ---
DISCHARGE WITH HOME HEALTH DISCHARGE INFORMATION: Final Diagnosis: Problems Medical Problems: (1) Chronic abdominal pain Status: Acute (2) Constipation Status: Acute (3) Hyponatremia Status: Acute (4) Rhabdomyolysis Status: Acute Condition on Discharge: Stable CODE STATUS: Code Status: Full HOME HEALTH: Face to Face: I certify this patient is under my care and that I, or a nurse practitioner or physician's cook's assistant working with me, had a face to face encounter that meets the physician face to face encounter requirements with this patient on []. RN For Eval/Treatment: Yes Physical Therapy For: Evalulation/Treatment Occupational Therapy For: Evaluation/Treatment Pt Meets Homebound Status: Limited distance walking POST DISCHARGE ORDERS: Activity Instructions for Disc: Activity as tolerated FOLLOW-UP: Follow Up With: primary care Dr in 1 week CERTIFICATION STATEMENT: Certification Statement: Certification Statement: Based on the above finding, I certify that this patient is confined to the home and needs intermittent penitentiary care, physical therapy and/or speech therapy, or continues to need occupational therapy.~ This patient is under my care, and I have initiated the establishment of the plan of care.~ This patient will be followed by myself or a community physician who will periodically review the plan of care. Home Meds Active Scripts Levothyroxine Sodium (SYNTHROID) 125 Mcg Tablet, 125 MCG PO DAILY06 for hypothyroidism for 30 Days, #30 TAB Prov:YOLIS GAFFNEY MD 08/08/18 Polyethylene Glycol 3350 (POLYETHYLENE GLYCOL 3350) 17 Gm Powd.pack, 17 GM PO BID for constipation for 14 Days, #28 PKT Prov:YOLIS GAFFNEY MD 08/08/18 Lubiprostone (AMITIZA) 8 Mcg Capsule, 8 MCG PO BIDWMEALS for constipation for 14 Days, #28 CAP Prov:YOLIS GAFFNEY MD 08/08/18 Docusate Sodium (COLACE) 100 Mg Capsule, 100 MG PO DAILY for constipation for 14 Days, #14 CAP Prov:YOLIS GAFFNEY MD 08/08/18 [Bisacodyl Supp] 10 MG SUPP.RECT No Conflict Check, 10 MG [place] DAILY for 14 Days, #14 SUPP.RECT Prov:YOLIS GAFFNEY MD 08/08/18 Simethicone (SIMETHICONE) 80 Mg Tab.chew, 80 MG PO PRN AFTMEALHC PRN for GAS / BLOATING for 10 Days, #30 TAB.CHEW Prov:YOLIS GAFFNEY MD 08/08/18 Tramadol Hcl (TRAMADOL HCL) 50 Mg Tablet, 50 MG PO PRN Q6HRS PRN for PAIN for 5 Days, #20 TAB Prov:YOLIS GAFFNEY MD 08/08/18 Dicyclomine Hcl (DICYCLOMINE HCL) 10 Mg Capsule, 10 MG PO PRN Q6HRS PRN for abdominal pain for 7 Days, #28 CAP Prov:YOLIS GAFFNEY MD 08/08/18 YOLIS GAFFNEY MD August 08, 2018 10:48
--- NOTE | 2018-08-08 10:55 | PDOC3 ---
Discharge Summary Visit Information Date of Admission: July 31, 2018 Date of Discharge: August 08, 2018 Final Diagnosis Problems Medical Problems: (1) Chronic abdominal pain Status: Acute (2) Constipation Status: Acute (3) Hyponatremia Status: Acute (4) Rhabdomyolysis Status: Acute Brief Hospital Course Allergies Allergies Coded Allergies Type Severity Reaction Last Updated Verified No Known Drug Allergies 08/06/18 No Vital Signs Vital Signs Date Time Temp Pulse Resp B/P (MAP) Pulse Ox O2 Delivery O2 Flow Rate FiO2 08/08/18 08:00 Room Air 08/08/18 07:00 97.7 64 18 143/80 (101) 95 97.7 Lab Results Laboratory Tests Test 08/06/18 11:08 08/07/18 03:55 Creatine Kinase 1518 U/L (39-308) White Blood Count 3.3 x10^3/uL (4.0-11.0) Red Blood Count 3.89 x10^6/uL (4.30-5.70) Hemoglobin 13.3 g/dL (13.0-17.5) Hematocrit 37.8 % (39.0-53.0) Mean Corpuscular Volume 97 fL (79-100) Mean Corpuscular Hemoglobin 34 pg (25-35) Mean Corpuscular Hemoglobin Concent 35 g/dL (31-37) Red Cell Distribution Width 13.9 % (11.5-14.5) Platelet Count 220 x10^3/uL (140-400) Neutrophils (%) (Auto) 56 % (31-73) Lymphocytes (%) (Auto) 32 % (24-48) Monocytes (%) (Auto) 7 % (0-9) Eosinophils (%) (Auto) 4 % (0-3) Basophils (%) (Auto) 1 % (0-3) Neutrophils # (Auto) 1.8 x10^3uL (1.8-7.7) Lymphocytes # (Auto) 1.1 x10^3/uL (1.0-4.8) Monocytes # (Auto) 0.2 x10^3/uL (0.0-1.1) Eosinophils # (Auto) 0.1 x10^3/uL (0.0-0.7) Basophils # (Auto) 0.0 x10^3/uL (0.0-0.2) Sodium Level 130 mmol/L (136-145) Potassium Level 3.7 mmol/L (3.5-5.1) Chloride Level 94 mmol/L (98-107) Carbon Dioxide Level 28 mmol/L (21-32) Anion Gap 8 (6-14) Blood Urea Nitrogen 7 mg/dL (8-26) Creatinine 1.4 mg/dL (0.7-1.3) Estimated GFR (Cockcroft-Gault) 58.1 Glucose Level 90 mg/dL (70-99) Calcium Level 8.5 mg/dL (8.5-10.1) Brief Hospital Course 88 y/o male whoi Reports abd pain and distention x 2 months - "my stomach is too full and I kept eating but it didn't come out." Tells me has constipation but also stools are "too loose" and has been taking Gas-X "and everything else." Unclear if bowel pattern changed recently or what his normal is. Denies reflux/heartburn, dysphagia, vomiting, bleeding, and weight loss. Denies previous EGD, also denies GB, liver, pancreas, and PUD history. Denies NSAID use. in ED CT: atherosclerotic calcification of the abdominal aorta and its br anches, gallstones, air and stool distention of the colon is seen particularly involving the sigmoid colon without definite evidence of bowel obstruction, rectum has a diffusely thickened wall and is mild to moderately distended with stool, the sigmoid colon proximal to rectosigmoid junction is markedly distended and filled with stool and air. patient admitted to medical floor. found to have TIM secondary to pre-renal azotemia. also found to have elevated CPK. CPK 2k and improved to 1500. renal fxn normal at discharge. GI consulted. patient was placed on aggressive bowel regimen. 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 will dc him on aggressive bowel regimen. suspect related to untreated hypothyroidism. he was started on Synthroid. patient would like to dc home today. will dc home with home health and PT. needs repeat cpk as outpatient. Discharge Information Condition at Discharge: Improved Follow Up: Weeks (PCP in 2 weeks) Disposition/Orders: D/C to Home Scheduled Docusate Sodium (Colace) 100 Mg Capsule, 100 MG PO DAILY for constipation for 14 Days, #14 Prescribed by: YOLIS GAFFNEY MD on 08/08/18832 Levothyroxine Sodium (Synthroid) 125 Mcg Tablet, 125 MCG PO DAILY06 for hypothyroidism for 30 Days, #30 Prescribed by: YOLIS GAFFNEY MD on 08/08/18832 Lubiprostone (Amitiza) 8 Mcg Capsule, 8 MCG PO BIDWMEALS for constipation for 14 Days, #28 Prescribed by: YOLIS GAFFNEY MD on 08/08/18832 Polyethylene Glycol 3350 (Polyethylene Glycol 3350) 17 Gm Powd.pack, 17 GM PO BI D for constipation for 14 Days, #28 Prescribed by: YOLIS GAFFNEY MD on 08/08/18832 [Bisacodyl] 10 MG SUPP.RECT, 10 MG LA DAILY for 14 Days, #14 Prescribed by: YOLIS GAFFNEY MD on 08/08/18832 Scheduled PRN Dicyclomine Hcl (Dicyclomine Hcl) 10 Mg Capsule, 10 MG PO PRN Q6HRS PRN for abdominal pain for 7 Days, #28 Prescribed by: YOLIS GAFFNEY MD on 08/08/18832 Simethicone (Simethicone) 80 Mg Tab.chew, 80 MG PO PRN AFTMEALHC PRN for GAS / BLOATING for 10 Days, #30 Prescribed by: YOLIS GAFFNEY MD on 08/08/18832 Tramadol Hcl (Tramadol Hcl) 50 Mg Tablet, 50 MG PO PRN Q6HRS PRN for PAIN for 5 Days, #20 Prescribed by: YOLIS GAFFNEY MD on 08/08/18832 YOLIS GAFFNEY MD August 08, 2018 10:55
[2018-08-08 11:00] VITALS: BP 141/82
--- NOTE | 2018-08-08 11:23 | NUR ---
Discharge teaching provided written and verbal to pt,pt verbalized understanding and states he will have his friend read over the discharge instructions as well.
--- NOTE | 2018-08-08 11:43 | PDOC ---
Subjective: Subjective: Getting ready to go home. Tolerating PO, stooling a little. Feels better overall. Objective: Objective: RN says plans to DC on bowel regimen. Vital Signs: Vital Signs Date Time Temp Pulse Resp B/P (MAP) Pulse Ox O2 Delivery O2 Flow Rate FiO2 08/08/18 11:00 98.1 55 17 141/82 (101) 96 Room Air 98.1 PE: GEN: NAD LUNGS: CTAB HEART: RRR ABD: distended - softer overall NEURO/PSYCH: A & O 3 A/P: Pseudoobstruction/colonic inertia -- DC plans noted - advised low residue diet and continuation of Miralax, Dulcolax. YOSELIN PRAKASH August 08, 2018 11:43
--- NOTE | 2018-08-08 12:42 | NUR ---
Pt dismissed to home with all belongings accompanied by his friend Seb Iqbal. Transported to exit per w/c at 1243
--- NOTE | 2018-08-08 14:03 | NUR ---
late note: orders for home health faxed to [facility].
== END 2018-08-08 12:43 | disposition home health service (06) | DRG 391 ==
LOC: ER 13:47 → 6 SOUTH 17:38 → 5 NORTH 08-03 23:45
PROVIDERS: ADMIT Internal Medicine; ATTEND Internal Medicine
PROC: 0DJ08ZZ Inspection of Upper Intestinal Tract, Via Natural or Artificial Opening Endoscopic (ICD-10-PCS; principal; 2018-08-03)
PROC: 0DJD8ZZ Inspection of Lower Intestinal Tract, Via Natural or Artificial Opening Endoscopic (ICD-10-PCS; 2018-08-06)
DX: K20.9 Esophagitis, unspecified (principal); N17.0 Acute kidney failure with tubular necrosis; E87.1 Hypo-osmolality and hyponatremia; M62.82 Rhabdomyolysis; K59.8 Other specified functional intestinal disorders; I10 Essential (primary) hypertension; K59.00 Constipation, unspecified; E66.9 Obesity, unspecified; Z68.32 Body mass index [BMI] 32.0-32.9, adult; E03.9 Hypothyroidism, unspecified; E86.1 Hypovolemia; F17.210 Nicotine dependence, cigarettes, uncomplicated; G89.29 Other chronic pain; I70.0 Atherosclerosis of aorta; M10.9 Gout, unspecified; R14.0 Abdominal distension (gaseous)
CPT/HCPCS: 36415; 45330; 74018; 74177; 80048; 80053; 80307; 81001; 82533; 82550; 82553; 83690; 83735; 83880; 84439; 84443; 84480; 84481; 84484; 85025; 85610; 93005; 94640; 94760; 96360; 96361; G0480; J2001; J2212; J2704; J3475; J7030; J7120; J7613; Q9967; 97110; 97116; 97530; 99285-25